=== PATIENT | male | born 1930 | race Caucasian/White ===

== ENCOUNTER → 2016-04-17 | Outpatient (CLI) | payer OTHER ==
[~2016-04-17] MED LIST: ASPI81TA28 PO; ATOR-26 PO; CHOL100010 PO; CLOP1TAB5 PO; FERR1TAB24 PO; INSDGIPEN SC; IRON TAB PO; LISI-729 PO; MULT-506 PO; NTRGSL/4 SL; OXYC-57 PO
--- NOTE | 2016-04-17 12:37 | DIAGNOSTIC IMAGING REPORT ---
ADDENDUM Addendum for Fluoro Time: FLUORO TIME: 0.4 minute Electronically signed by: Barry Drew M.D. 04/30/2016 11:28 AM Dictated Date/Time: 04/18/2016 9:17 AM ORIGINAL REPORT Study: Cholangiogram HISTORY: Acute cholecystitis FINDINGS: Patient has drainage/cholecystostomy catheter. This injected in retrograde fashion. There is filling of the gallbladder lumen. There is an extensive amount of debris and/or sludge within the gallbladder lumen. Cystic duct is seen in part. The common duct is not seen definitively on these images. Patient began to complain of discomfort and retrograde flow of contrast around the catheter and neck seen at the skin surface. At this point study was terminated. IMPRESSION: 1. Retrograde opacification of the gallbladder which contains multiple filling defects with moderate wall irregularity 2. No evidence for extravasation. 3. Partial filling of the cystic duct with potential flash filling of the mid common duct. 4. At this point, retrograde flow of contrast seen around the tube and at the patient's skin surface. Due to patient discomfort, further attempts at opacification of the common duct were not performed Electronically signed by: Barry Drew M.D. 04/17/2016 12:34 PM
== END | disposition home or self-care (01) ==
LOC: C.RAD 10:35
PROVIDERS: ATTEND Surgery
DX: K81.0 Acute cholecystitis (principal)

== ENCOUNTER 2016-04-21 09:18 | Observation (INO) | payer OTHER ==
[2016-04-17 12:04] LABS: BASO % 0.4 %; BASO ABS # 0.02 K/uL (0-0.2); COMPLETE YES; EOS % 2.6 %; HEMATOCRIT 35.6 % (42-52); IG% 0.2 %; LYMPH % 21.8 %; LYMPH ABS # 1.19 K/uL (1.2-3.4); MEAN CELL VOLUME 100.3 fL (80-100); MEAN CORPUSCULAR HEMOGLOBIN 32.1 pg (25-34); MEAN PLATELET VOLUME 9.9 fL (7.4-10.4); MONO % 6.2 %; NEUT % 68.8 %; PLATELET COUNT 166 K/uL (130-400); RED BLOOD COUNT 3.55 M/uL (4.7-6.1); WHITE BLOOD COUNT 5.45 K/uL (4.8-10.8)
[2016-04-17 12:22] LABS: PROTHROMBIN TIME (PATIENT) 10.6 SECONDS (9.0-12.0)
[2016-04-17 12:43] LABS: ALT/SGPT 16 U/L (12-78); AST/SGOT 22 U/L (15-37); BLOOD UREA NITROGEN 14 mg/dl (7-18); BUN/CREATININE RATIO 14.5 (10-20); CARBON DIOXIDE 26 mmol/L (21-32); CHLORIDE 102 mmol/L (98-107); CREATININE 0.94 mg/dl (0.60-1.40); GLUCOSE 178 mg/dl (70-99); SODIUM 138 mmol/L (136-145)
[2016-04-17 12:46] LABS: ALB/GLOB RATIO 0.9 (0.9-2); ALKALINE PHOSPHATASE 113 U/L (45-117)
[2016-04-17 16:19] VITALS: BMI 29.0
[~2016-04-21] VITALS: Ht 167.6 cm; Wt 80.7 kg
[2016-04-21] VITALS (26 sets, daily range): BP systolic 134–180; BP diastolic 58–89; PULSE 69–110; TEMP 36.5–36.8; O2SAT 95–100; Ht 167.6 cm; Wt 80.7 kg
[~2016-04-21 09:18] MED LIST changes: +CEFAZOLIN 2000 MG/60 ML D5W IV SCH; -FERR1TAB24 PO; +HEPARIN SOD 5000 UNIT/0.5 ML CARP SQ SCH; +LACTATED RINGER'S 1000ML 1,000 ML IV SCH; -OXYC-57 PO
[2016-04-21] MEDS ORDERED: MIDAZOLAM HCL 1 MG/ML 2ML VIAL ONE (09:47)
[2016-04-21] MEDS ORDERED: ROCURONIUM BROMIDE 10 MG/ML 5 ML VIAL ONE (09:47)
[2016-04-21] MEDS ORDERED: PROPOFOL IV EMULSION 10 MG/ML 20 ML VIAL IV ONE (09:47)
[2016-04-21] MEDS ORDERED: FENTANYL CITRATE INJ 50 MCG/1 ML 2 ML VIAL ONE ×3 (09:47→13:09)
[2016-04-21] MEDS ORDERED: LIDOCAINE HCL 2% 2 ML VIAL (20MG/ML) ONE (09:47)
--- NOTE | 2016-04-21 10:40 | History & Physical Bridge Note ---
H&P Re-Evaluation Bridge Note: I have examined the patient, reviewed the History & Physical and in the interval since the performance of the History & Physical I have noted the following changes of clinical significance: No changes noted
[2016-04-21] MEDS ORDERED: EpHEDrine SULFATE 50MG/5ML SYR ONE (11:25)
[2016-04-21] MEDS ORDERED: GLYCOPYRROLATE INJ 0.2 MG/ML VIAL ONE (11:25)
[2016-04-21] MEDS ORDERED: SURGICEL ABSORB HEMOSTAT 2IN X 14IN TOP ONE (12:32)
[2016-04-21] MEDS ORDERED: BUPIVACAINE/EPINEPHRINE 0.5% MPF 1:200,000 30 ML VIAL INJ ONE (12:40)
[2016-04-21] MEDS ORDERED: DEXTROSE 50% 50 ML SYR IV PRN (13:00)
[2016-04-21] MEDS ORDERED: GLUCAGON FOR INJ 1 MG VIAL SQ PRN (13:00)
[2016-04-21] MEDS ORDERED: ATROPINE SULFATE 0.1 MG/ML 5ML SYR IV PRN (13:00)
[2016-04-21] MEDS ORDERED: GLUCOSE 40% GEL 15 GM TUBE PO PRN (13:00)
[2016-04-21] MEDS ORDERED: LABETALOL HCL IV 5 MG/ML 20ML IV PRN (13:00)
[2016-04-21] MEDS ORDERED: NALOXONE HCL 0.4 MG/1 ML VIAL/CARP IV PRN (13:00)
[2016-04-21] MEDS ORDERED: FENTANYL CITRATE INJ 50 MCG/1 ML 2 ML VIAL IV PRN (13:00)
[2016-04-21] MEDS ORDERED: NITROGLYCERIN 0.4 MG SL PER TAB CHARGE SL PRN (13:00)
[2016-04-21] MEDS ORDERED: EpHEDrine SULFATE INJ 50 MG/ML AMP IV PRN (13:00)
[2016-04-21] MEDS ORDERED: ONDANSETRON INJ 2 MG/ML 2 ML VIAL IV PRN ×2 (13:00)
[2016-04-21] MEDS ORDERED: FLUMAZENIL 0.1 MG/1 ML 10 ML VIAL IV PRN (13:00)
[2016-04-21] MEDS ORDERED: GLUCOSE 10 TABS/TUBE PO PRN (13:00)
--- NOTE | 2016-04-21 13:04 | [facility] Operative Report ---
Operative Report Operative Date Apr 21, 2016. Pre-Operative Diagnosis Acute choleccystitis, percutaneous cholecystostomy tube Post-Operative Diagnosis same Procedure(s) Performed lap thi with removal of perc thi tube Surgeon Dr. Sung Mo Filer And Sander Surgeon(s) Omar Krueger PA-C Estimated Blood Loss 100ML Findings gallbladder with chronic inflammation and stones Specimens A. Gallbladder Anesthesia GET Complication(s) None Disposition Recovery Room / PACU I attest to the content of the Intraoperative Record and any orders documented therein. Any exceptions are noted below.
[2016-04-21] MEDS ORDERED: ONDANSETRON INJ 2 MG/ML 2 ML VIAL ONE (13:38)
--- NOTE | 2016-04-21 13:42 | OPERATIVE REPORT ---
DATE OF OPERATION: 04/21/2016 PREOPERATIVE DIAGNOSES: Chronic cholecystitis, cholelithiasis and history of recent cholecystostomy tube by [facility]. POSTOPERATIVE DIAGNOSES: Same. PROCEDURE: Laparoscopic cholecystectomy with removal of cholecystostomy tube. SURGEON: Dr. Mo. BIG DATA HADOOP DEVELOPER: Omar Krueger PA-C. ESTIMATED BLOOD LOSS: Approximately 100 mL. COMPLICATIONS: No immediate complications. ANESTHESIA: The patient tolerated the procedure well. DESCRIPTION OF PROCEDURE: After informed consent was obtained, the patient was taken to the operating suite, placed in supine position. After successful intubation, the abdomen was sterilely prepped and draped in usual fashion. A periumbilical incision 11 blade scalpel and carried down through the soft tissue using electrocautery. Anterior rectus fascia was opened using electrocautery and two #0 Vicryl stay sutures were placed. Peritoneum was entered using blunt finger penetration and a finger sweep was performed to takedown adhesions. A 12 mm Mehrdad trocar was placed and the abdomen was insufflated 18 mmHg. Laparoscope was inserted and the abdomen examined 360 degrees. A subxiphoid 5 mm port which would later be to 12 mm port was placed and then 2 right mid abdominal 5 mm ports. The patient was placed in reverse Trendelenburg position slightly airplaned to the left. The gallbladder was a thickened and contracted. There were palpable stones within it. We were able to grasp it and elevate it superiorly and laterally. At the neck of the gallbladder itself, there was a lot of inflammation. We were able to slowly tease this down using scissor lysis small amounts of electrocautery and primarily blunt dissection. After a fair amount of dissection, I was able to delineate the cystic node which I was able to dissect superiorly. We were then able to get on the medial side of the cystic duct. There was a large thick band of tissue with chronic inflammation anterior to the cystic duct. Originally I thought this might be the cystic duct and we skeletonized it and use a CLIFFORD gleason cartridge to transect it. Once we did this though right behind it was clearly the cystic duct. We slowly and tediously dissected it free from surrounding tissues. Again, because of the thick nature of the tissue, I decided to go ahead and used the CLIFFORD stapler for this as well. We stapled off the cystic duct. The cystic artery was posterior. We clipped it twice proximally and once distally and transected it. We were then able to remove the gallbladder from the gallbladder fossa. The cholecystostomy tube had been placed transhepatically. When we encountered it we pulled it out of the gallbladder. I cut the pigtail portion off and removed it from one of the ports. We would remove the remainder of the catheter at the end of the case. We took the gallbladder down. Initially during dissection, we made a small hole in the neck of the gallbladder which released small gallstones as well as small amount of bile. We suctioned all these out at the end of the case as well. After removing, the gallbladder was placed into an EndoCatch bag and removed it from the abdominal cavity. We then performed thorough irrigation and suctioned out the small stones that remainder. Several small bleeding points in the gallbladder fossa were controlled using electrocautery. Because of the patient being running high platelets and the chronic inflammation, I did put a piece of Surgicel in the gallbladder fossa. At the end of the procedure, there was adequate hemostasis and no evidence of any bile leak. Final irrigation was performed. A #10 flat Johnny-Castillo drain was also placed in the right upper quadrant and brought out through one of the port sites. Quick look around the abdomen showed no other gross abnormalities. The trocars were all removed and the abdomen was desufflated. The fascia of the camera port was closed using 0 Vicryl in a [id number] fashion. All the wounds were irrigated and closed using 4-0 Monocryl. Marcaine was injected around them for postoperative analgesia. Skin glue used as dressing. The patient was awakened, extubated, and transferred to recovery in stable condition. I attest to the content of the Intraoperative Record and any orders documented therein. Any exceptio ns are noted below.
[2016-04-21] MEDS ORDERED: PROMETHAZINE HCL INJ 12.5 MG in SODIUM CHLORIDE 0.9% 50ML 50 ML IV PRN (13:45)
[2016-04-21] MEDS ORDERED: HYDROmorphone INJ 1 MG/ML SYR ONE (13:45)
[2016-04-21] MEDS ORDERED: NURSING VERBAL MED ORDER ONE ×2 (14:00→22:45)
--- NOTE | 2016-04-21 14:25 | Anesthesiology Progress Note ---
Anesthesia Post Op Note Date & Time Apr 21, 2016 at 14:24 Vital Signs Pain Intensity: 4 Vital Signs Past 12 Hours Date Time Temp Pulse Resp B/P Pulse Ox O2 Delivery O2 Flow Rate FiO2 04/21/16 14:10 72 20 140/64 97 Nasal Cannula 2 04/21/16 14:00 67 20 144/59 97 Nasal Cannula 2 04/21/16 13:50 71 18 143/97 97 Nasal Cannula 2 04/21/16 13:40 69 18 137/58 100 Nasal Cannula 2 04/21/16 13:30 69 18 149/55 100 Mask 10 04/21/16 13:20 70 18 164/74 100 Mask 10 04/21/16 13:10 65 18 152/79 100 Mask 10 04/21/16 13:00 77 20 139/51 100 Mask 10 04/21/16 12:57 36.1 77 18 153/63 100 Mask 10 Notes Mental Status: alert / awake / arousable, participated in evaluation Pt Amnestic to Procedure: Yes Nausea / Vomiting: adequately controlled Pain: adequately controlled Airway Patency, RR, SpO2: stable & adequate BP & HR: stable & adequate Hydration State: stable & adequate Anesthetic Complications: no major complications apparent
[2016-04-21] MEDS: OXYCODONE/ACETAMINOPHEN 5-325 TAB PO PRN ×2 (15:07→19:55)
[2016-04-21] MEDS ORDERED: IV FLUIDS COMPLETED PRN (15:15)
[2016-04-21] MEDS: LACTATED RINGER'S 1000ML 1,000 ML IV SCH (16:15)
[2016-04-21] MEDS: INSULIN ASPART 100 UNITS/ML 3 ML PEN SC SCH ×2 (16:16→20:32)
--- NOTE | 2016-04-21 17:13 | CARDIOLOGY PROGRESS NOTE ---
DATE: 04/21/2016 HISTORY OF PRESENT ILLNESS: Mr. Madrid is a very pleasant 85-year-old white male with a history of hypertension, dyslipidemia, type 2 diabetes mellitus, right carotid bruit, prostate cancer, left carotid bruit, cholecystitis, and CAD status post inferior STEMI on 08/04/2015, status post 2 drug-eluting stents in the mid and proximal RCA, who underwent a laparoscopic cholecystectomy earlier today with Dr. Sung Mo. At the present time, the patient is being seen in room 202 and is somewhat somnolent, he arouses to verbal stimuli and he answers questions appropriately. The patient offers no complaints. He does admit that he is "sore" in his abdomen. He denies any chest pain, angina, dyspnea, palpitations, lightheadedness, dizziness, or weakness. The patient denies any limiting cardiopulmonary symptoms leading up to his surgery. He was seen by Dr. Payton for preoperative cardiac evaluation. Please note that he had his inferior STEMI in July 2015 and only completed 8 months of dual antiplatelet therapy. His Plavix was held for 5 days leading up to surgery, and should be restarted at the earliest possible interval as hemostasis allows. MEDICATIONS: 1. Aspirin 81 mg a day. 2. Lisinopril 5 mg daily. 3. NovoLog sliding-scale insulin. 4. Zofran 4 mg IV q. 6 hours p.r.n. 5. Percocet 5/325 one tablet every 4 hours as needed. 6. Morphine sulfate as needed. 7. Sublingual nitroglycerin p.r.n. 8. Lactated Ringer's at 80 mL per hour. ALLERGIES: 1. NKDA. 2. INTOLERANT TO Beta-blockers DUE TO BRADYCARDIA. PHYSICAL EXAMINATION: VITAL SIGNS: Temperature is 36.6 degrees Celsius, pulse 70 and regular, respiratory rate is 18 and unlabored, blood pressure is 147/67, SpO2 is 96% on 2 liters of oxygen via nasal cannula. GENERAL: The patient is in no acute distress. HEENT: Head is atraumatic, normocephalic. EOMs intact. Sclerae are anicteric. Face is symmetric. No perioral cyanosis. Mucous membranes moist. NECK: Without thyromegaly, adenopathy or JVD. Carotid upstrokes are +2 bilaterally with a left carotid bruit noted. CHEST AND LUNGS: Clear to auscultation throughout all lung stubbs, no wheezes, rales or rhonchi. CARDIOVASCULAR: S1 and S2 are regular without murmur, gallop or rub. PMI is not displaced. No lifts, heaves, or thrills. ABDOMINAL EXAM: Bowel sounds present. EXTREMITIES: Without clubbing, cyanosis or edema. Intact radial pulses and posterior tibial pulses bilaterally. NEUROLOGIC: The patient is somnolent, but arouses to verbal stimuli. Answers questions appropriately. No focal neurologic deficits noted. Cardiac catheterization on 08/04/2015 revealed the followin. LMCA luminal irregularities only. 2. LAD 70% mid vessel stenosis. 3. D1 and D2 -- mild diffuse disease. 4. LCX -- 30% proximal stenosis, otherwise mild diffuse disease. 5. OM1 small vessel. 6. OM2 20% mid vessel stenosis. 7. RCA -- dominant vessel. 100% midvessel occlusion, 50% distal vessel occlusion. PCI included: 1. Resolute 2.5 x 14 mm drug-eluting stent deployed in the mid RCA. 2. Resolute 2.75 x 12 mm drug-eluting stent deployed in the proximal RCA. ASSESSMENT: 1. Status post laparoscopic cholecystectomy. 2. CAD, status post inferior ST elevation myocardial infarction on 08/04/2015 with deployment of 2 drug-eluting stents in the mid and proximal right coronary artery. 3. Borderline occlusive mid LAD stenosis (70%) 4. Hypertension. 5. Dyslipidemia. 6. Type 2 diabetes mellitus. 7. History of left carotid bruit. 8. No angina pectoris or anginal equivalent symptoms. 9. No signs or symptoms of heart failure. 10. No symptoms suggestive of dysrhythmia. PLAN: 1. The patient is hemodynamically stable following his laparoscopic cholecystectomy earlier today. 2. Agree with telemetry for the next 24 hours. 3. Continue aspirin 81 mg daily indefinitely. 4. Resume Plavix 75 mg daily at the earliest interval, as hemostasis allows. 5. Continue Lisinopril at current dose. Hold parameters based on systolic blood pressure. 6. Continue Atorvastatin 80 mg at bedtime. 7. Continue sliding-scale insulin coverage for blood sugars. 8. Continue Lantus. 9. Avoid beta-blockers due to previous bradycardia. 10. Monitor daily H&H, PRP. 11. We will continue to follow along while hospitalized and as an outpatient. MTDD
[2016-04-21] MEDS: MoRPHine SULFATE 4 MG/ML 1 ML CARP\\VIAL IV PRN ×2 (19:08→21:52)
[2016-04-21] MEDS: ATORVASTATIN 40 MG TAB PO SCH (20:30)
[2016-04-21] MEDS ORDERED: HYDROmorphone INJ 1 MG/ML SYR IV PRN (23:00)
[2016-04-21] MEDS: HYDROmorphone INJ 1 MG/ML SYR IV PRN (23:07)
[2016-04-22] VITALS (9 sets, daily range): BP systolic 129–164; BP diastolic 69–79; PULSE 74–97; TEMP 36.4–36.9; O2SAT 89–98
[2016-04-22] MEDS: OXYCODONE/ACETAMINOPHEN 5-325 TAB PO PRN ×2 (01:20→10:56)
[2016-04-22] MEDS: LACTATED RINGER'S 1000ML 1,000 ML IV SCH (01:23)
[2016-04-22] MEDS: HYDROmorphone INJ 1 MG/ML SYR IV PRN (04:42)
[2016-04-22] MEDS: INSULIN ASPART 100 UNITS/ML 3 ML PEN SC SCH ×4 (07:00→21:08)
[2016-04-22 07:24] LABS: BASO % 0.1 %; BASO ABS # 0.01 K/uL (0-0.2); COMPLETE YES; HEMATOCRIT 28.7 % (42-52); IG% 0.3 %; LYMPH % 6.1 %; LYMPH ABS # 0.61 K/uL (1.2-3.4); MEAN CORPUSCULAR HEMOGLOBIN 31.8 pg (25-34); MEAN CORPUSCULAR HGB CONC 32.8 g/dl (32-36); MEAN PLATELET VOLUME 9.4 fL (7.4-10.4); MONO % 6.7 %; NEUT % 86.8 %; PLATELET COUNT 156 K/uL (130-400); RED BLOOD COUNT 2.96 M/uL (4.7-6.1); WHITE BLOOD COUNT 9.95 K/uL (4.8-10.8)
[2016-04-22] MEDS: ASPIRIN 81 MG ECTAB PO SCH (07:33)
[2016-04-22] MEDS: LISINOPRIL 5 MG TAB PO SCH (07:33)
[2016-04-22 07:52] LABS: CALCIUM 8.4 mg/dl (8.5-10.1); CREATININE 0.87 mg/dl (0.60-1.40); POTASSIUM 4.5 mmol/L (3.5-5.1)
--- NOTE | 2016-04-22 09:12 | CARDIOLOGY PROGRESS NOTE ---
DATE: 04/22/2016 HISTORY OF PRESENT ILLNESS: Mr. Madrid is now postoperative day #1 from a laparoscopic cholecystectomy. He continues to have abdominal soreness, but is asymptomatic from a cardiac standpoint. He denies any chest pain, heaviness, tightness, pressure or angina pectoris. Denies any neck, jaw, back, or arm pain. No shortness of breath, dyspnea on exertion, orthopnea or PND. He further denies any palpitations, syncope, or near syncope. The patient has developed a mild postoperative anemia, but is asymptomatic with it. PHYSICAL EXAMINATION: VITAL SIGNS: Temperature is 36.6 degrees Celsius, pulse 78 and regular, respiratory rate 16 and unlabored, blood pressure is 130/72, SPO2 is 98% on 3 liters of oxygen via nasal cannula. GENERAL: The patient is in no acute distress. HEENT: Head is atraumatic, normocephalic. EOMs intact. Sclerae are anicteric. Facies symmetric. NECK: Without thyromegaly, adenopathy or JVD. CHEST AND LUNGS: With mildly diminished breath sounds, otherwise clear. CARDIOVASCULAR: S1 and S2 are regular without murmur, gallop or rub. ABDOMEN: Bowel sounds are present. EXTREMITIES: No clubbing, cyanosis or edema. Intact radial and posterior tibial arteries bilaterally. NEUROLOGIC: The patient is awake, alert and oriented. Pleasant and cooperative. Answers questions appropriately. Speech is clear. Follows commands. LABORATORIES: White blood count 9.95. Hemoglobin 9.4 g/dl, hematocrit 28.7%, platelet count is 156,000. Sodium is 136 mmol/L, potassium 4.5 mmol/L. BUN is 17 mg/dL. Creatinine 0.87 mg/dL. Random glucose 143 mg/dL. ASSESSMENT: 1. Postoperative day #1 laparoscopic cholecystectomy. 2. Coronary artery disease status post 2 drug-eluting stents in the mid and proximal right coronary artery 08/04/2015. 3. 70% mid left anterior descending stenosis. 4. Hypertension. 5. Dyslipidemia. 6. Type 2 diabetes mellitus. 7. Left carotid bruit. 8. No angina pectoris or anginal equivalent symptoms. 9. No signs or symptoms of heart failure. PLAN: 1. The patient remains stable from a cardiac standpoint. 2. Continue lisinopril at current dose. 3. Continue aspirin 81 mg daily. 4. Resume Plavix 75 mg this am if okay with Dr. Mo. 5. Continue director long term care atorvastatin 80 mg at bedtime. 6. Continue to monitor laboratories. 7. The patient is stable for transfer to medical/surgical floor. MTDD
--- NOTE | 2016-04-22 09:41 | Anesthesiology Progress Note ---
Anesthesia Post Op Note Date & Time Apr 22, 2016 at 09:39 Vital Signs Pain Intensity: 1.0 Vital Signs Past 12 Hours Date Time Temp Pulse Resp B/P Pulse Ox O2 Delivery O2 Flow Rate FiO2 04/22/16 08:00 98 Nasal Cannula 3.0 04/22/16 04:00 98 Nasal Cannula 3.0 04/22/16 04:00 36.6 78 18 131/73 98 Room Air 04/22/16 00:00 98 Nasal Cannula 3.0 04/22/16 00:00 36.4 97 19 164/79 96 Room Air Notes Mental Status: alert / awake / arousable, participated in evaluation Pt Amnestic to Procedure: Yes Nausea / Vomiting: adequately controlled Pain: adequately controlled Airway Patency, RR, SpO2: stable & adequate BP & HR: stable & adequate Hydration State: stable & adequate Anesthetic Complications: no major complications apparent
--- NOTE | 2016-04-22 11:32 | Surgery Progress Note ---
Surgery Progress Note Date of Service Apr 22, 2016. Subjective Post OP Day: 1 + diet (clears), No complaints, No nausea Objective Vital Signs: Date Time Temp Pulse Resp B/P Pulse Ox O2 Delivery O2 Flow Rate FiO2 04/22/16 08:00 98 Nasal Cannula 3.0 04/22/16 04:00 98 Nasal Cannula 3.0 04/22/16 04:00 36.6 78 18 131/73 98 Room Air 04/22/16 00:00 98 Nasal Cannula 3.0 04/22/16 00:00 36.4 97 19 164/79 96 Room Air 04/21/16 21:00 105 25 148/68 96 Nasal Cannula 2.0 04/21/16 20:30 106 150/71 100 Nasal Cannula 2.0 04/21/16 20:00 98 Nasal Cannula 2.0 04/21/16 20:00 110 19 180/89 99 Nasal Cannula 2.0 04/21/16 19:00 36.8 85 32 162/71 98 Nasal Cannula 2.0 04/21/16 18:58 27 155/77 97 04/21/16 18:30 24 95 04/21/16 18:00 25 97 04/21/16 17:58 27 151/66 98 04/21/16 17:30 27 97 04/21/16 17:00 28 98 04/21/16 17:00 36.6 69 24 139/67 98 Nasal Cannula 2.0 04/21/16 16:00 Nasal Cannula 2.0 04/21/16 15:46 36.5 84 20 137/71 96 2.0 04/21/16 14:37 36.6 72 147/67 96 Nasal Cannula 2.0 04/21/16 14:29 36.6 72 28 147/67 96 Nasal Cannula 2.0 04/21/16 14:28 69 18 138/62 96 04/21/16 14:10 72 20 140/64 97 Nasal Cannula 2 04/21/16 14:00 67 20 144/59 97 Nasal Cannula 2 04/21/16 13:50 71 18 143/97 97 Nasal Cannula 2 04/21/16 13:40 69 18 137/58 100 Nasal Cannula 2 04/21/16 13:30 69 18 149/55 100 Mask 10 04/21/16 13:20 70 18 164/74 100 Mask 10 04/21/16 13:10 65 18 152/79 100 Mask 10 04/21/16 13:00 77 20 139/51 100 Mask 10 04/21/16 12:57 36.1 77 18 153/63 100 Mask 10 Physical Exam: MAGDALENO drainage (120 serosang) Abdomen: soft Incision(s): clean, dry Laboratory Results: Results Past 24 Hours Test 04/21/16 13:20 04/21/16 16:07 04/21/16 20:19 04/22/16 06:47 Range/Units Bedside Glucose 172 199 150 138 70-99 mg/dl Test 04/22/16 07:07 04/22/16 11:10 Range/Units White Blood Count 9.95 4.8-10.8 K/uL Red Blood Count 2.96 4.7-6.1 M/uL Hemoglobin 9.4 14.0-18.0 g/dL Hematocrit 28.7 42-52 % Mean Corpuscular Volume 97.0 80-100 fL Mean Corpuscular Hemoglobin 31.8 25-34 pg Mean Corpuscular Hemoglobin Concent 32.8 32-36 g/dl Platelet Count 156 130-400 K/uL Mean Platelet Volume 9.4 7.4-10.4 fL Neutrophils (%) (Auto) 86.8 % Lymphocytes (%) (Auto) 6.1 % Monocytes (%) (Auto) 6.7 % Eosinophils (%) (Auto) 0.0 % Basophils (%) (Auto) 0.1 % Neutrophils # (Auto) 8.63 1.4-6.5 K/uL Lymphocytes # (Auto) 0.61 1.2-3.4 K/uL Monocytes # (Auto) 0.67 0.11-0.59 K/uL Eosinophils # (Auto) 0.00 0-0.5 K/uL Basophils # (Auto) 0.01 0-0.2 K/uL RDW Standard Deviation 56.1 36.4-46.3 fL RDW Coefficient of Variation 15.9 11.5-14.5 % Immature Granulocyte % (Auto) 0.3 % Immature Granulocyte # (Auto) 0.03 0.00-0.02 K/uL Sodium Level 136 136-145 mmol/L Potassium Level 4.5 3.5-5.1 mmol/L Chloride Level 101 98-107 mmol/L Carbon Dioxide Level 24 21-32 mmol/L Anion Gap 11.0 3-11 mmol/L Blood Urea Nitrogen 17 7-18 mg/dl Creatinine 0.87 0.60-1.40 mg/dl Est Creatinine Clear Calc Drug Dose 64.2 ml/min Estimated GFR () 92.5 Estimated GFR (Non- 79.8 BUN/Creatinine Ratio 19.0 10-20 Random Glucose 143 70-99 mg/dl Calcium Level 8.4 8.5-10.1 mg/dl Total Bilirubin 1.6 0.2-1 mg/dl Direct Bilirubin 0.5 0-0.2 mg/dl Aspartate Amino Transf (AST/SGOT) 38 15-37 U/L Alanine Aminotransferase (ALT/SGPT) 18 12-78 U/L Alkaline Phosphatase 80 45-117 U/L Total Protein 6.3 6.4-8.2 gm/dl Albumin 2.6 3.4-5.0 gm/dl Bedside Glucose 132 70-99 mg/dl Assessment & Plan s/ap lap thi CAD stable post op will transfer to floor, increase activity advance diet as elif, will stop IVF Plavix restarted as above. doing ok pain control ok elif liquids. does not want more slight bump in LFT's...will recheck tomorrow. keep MAGDALENO for now some urinary incontinence. will give 2 days of flomax 0.4 mg
[2016-04-22] MEDS ORDERED: NURSING VERBAL MED ORDER ONE (12:15)
[2016-04-22] MEDS ORDERED: TAMSULOSIN HCL 0.4 MG CAP PO ONE (12:19)
[2016-04-22] MEDS: CLOPIDOGREL BISULFATE 75 MG TAB PO SCH (12:37)
[2016-04-22] MEDS: ATORVASTATIN 40 MG TAB PO SCH (21:06)
[2016-04-23 00:15] VITALS: O2SAT 88
[2016-04-23 07:26] VITALS: BP 126/67; PULSE 92; TEMP 36.5; O2SAT 94
[2016-04-23 08:05] LABS: MEAN CELL VOLUME 97.9 fL (80-100); MEAN CORPUSCULAR HEMOGLOBIN 31.8 pg (25-34); MEAN CORPUSCULAR HGB CONC 32.5 g/dl (32-36); MEAN PLATELET VOLUME 8.9 fL (7.4-10.4); PLATELET COUNT 176 K/uL (130-400); RED BLOOD COUNT 2.86 M/uL (4.7-6.1); WHITE BLOOD COUNT 6.45 K/uL (4.8-10.8)
[2016-04-23] MEDS: OXYCODONE/ACETAMINOPHEN 5-325 TAB PO PRN ×2 (08:09→16:10)
[2016-04-23] MEDS: CLOPIDOGREL BISULFATE 75 MG TAB PO SCH (08:10)
[2016-04-23] MEDS: ASPIRIN 81 MG ECTAB PO SCH (08:10)
[2016-04-23] MEDS: LISINOPRIL 5 MG TAB PO SCH (08:11)
[2016-04-23] MEDS: TAMSULOSIN HCL 0.4 MG CAP PO SCH (08:11)
--- NOTE | 2016-04-23 08:59 | Surgery Progress Note ---
Surgery Progress Note Date of Service Apr 23, 2016. Subjective Post OP Day: 2 not feeling well. having pain but not asking for pain meds. elif liquid diet but has not tried solids yet Objective Vital Signs: Date Time Temp Pulse Resp B/P Pulse Ox O2 Delivery O2 Flow Rate FiO2 04/23/16 07:26 36.5 92 18 126/67 94 Room Air 04/23/16 00:15 88 Nasal Cannula 2.0 04/22/16 23:10 93 Nasal Cannula 2.0 04/22/16 22:58 36.9 92 16 129/77 89 04/22/16 19:25 Room Air 04/22/16 15:07 36.6 95 16 154/75 92 Room Air 04/22/16 13:15 36.7 74 18 152/69 94 Room Air 04/22/16 13:15 Room Air 04/22/16 12:47 36.6 81 18 94 04/22/16 12:00 94 Room Air 04/22/16 11:40 36.6 81 18 144/71 96 Physical Exam: MAGDALENO drainage (serous/no bile) General Appearance: no apparent distress Head: normocephalic, + evidence of trama Neck: supple Abdomen: soft Incision(s): clean, dry, intact Extremities: non-tender Laboratory Results: Results Past 24 Hours Test 04/22/16 11:10 04/22/16 16:54 04/22/16 20:49 04/23/16 07:45 Range/Units Bedside Glucose 132 135 154 70-99 mg/dl White Blood Count 6.45 4.8-10.8 K/uL Red Blood Count 2.86 4.7-6.1 M/uL Hemoglobin 9.1 14.0-18.0 g/dL Hematocrit 28.0 42-52 % Mean Corpuscular Volume 97.9 80-100 fL Mean Corpuscular Hemoglobin 31.8 25-34 pg Mean Corpuscular Hemoglobin Concent 32.5 32-36 g/dl RDW Standard Deviation 57.0 36.4-46.3 fL RDW Coefficient of Variation 15.9 11.5-14.5 % Platelet Count 176 130-400 K/uL Mean Platelet Volume 8.9 7.4-10.4 fL Total Bilirubin 2.0 0.2-1 mg/dl Direct Bilirubin 0.6 0-0.2 mg/dl Aspartate Amino Transf (AST/SGOT) 31 15-37 U/L Alanine Aminotransferase (ALT/SGPT) 15 12-78 U/L Alkaline Phosphatase 89 45-117 U/L Total Protein 6.6 6.4-8.2 gm/dl Albumin 2.7 3.4-5.0 gm/dl Test 04/23/16 08:18 Range/Units Bedside Glucose 146 70-99 mg/dl Assessment & Plan 04/23/16 still not feeling great increase activity/PT/OT increase diet LFT's pending not ready for d/c yet 04/22/16 s/ap lap thi CAD stable post op will transfer to floor, increase activity advance diet as elif, will stop IVF Plavix restarted as above. doing ok pain control ok elif liquids. does not want more slight bump in LFT's...will recheck tomorrow. keep MAGDALENO for now some urinary incontinence. will give 2 days of flomax 0.4 mg s/ap lap thi CAD stable post op will transfer to floor, increase activity advance diet as elif, will stop IVF Plavix restarted as above. doing ok pain control ok elif liquids. does not want more slight bump in LFT's...will recheck tomorrow. keep MAGDALENO for now some urinary incontinence. will give 2 days of flomax 0.4 mg
[2016-04-23] MEDS: INSULIN ASPART 100 UNITS/ML 3 ML PEN SC SCH ×4 (09:33→20:52)
--- NOTE | 2016-04-23 13:01 | CARDIOLOGY PROGRESS NOTE ---
DATE: 04/23/2016 SUBJECTIVE: Mr. Madrid is resting comfortably in the bedside chair without complaints of chest pain or dyspnea. OBJECTIVE: VITAL SIGNS: Blood pressure 126/67 with a regular pulse of 90. Respiratory rate is 18. The patient is afebrile at 36.5 degrees Celsius. Saturation 94% on room air. NECK: Supple with full carotid upstrokes. There are no obvious bruits. Jugular venous pressure is flat at 90 degrees. There is no thyromegaly. CARDIOVASCULAR: Reveals a regular rhythm with normal S1 and S2. No obvious murmurs. No S3. LUNGS: Clear without rales, rhonchi, or wheezes. ABDOMEN: Soft with positive bowel sounds. EXTREMITIES: Show intact radial artery pulses bilaterally. There is no peripheral edema. DATA: CBC notes hemoglobin of 9.1, hematocrit 28.0, white count 6.4, platelet count 176,000. IMPRESSION AND PLAN: 1. Status post laparoscopic cholecystectomy -- per our surgical team. 2. Coronary artery disease -- status post 2 drug-eluting stents in the mid and proximal right coronary artery in July 2015. Also has a history of 70% mid left anterior descending stenosis. Plavix restarted yesterday. No bleeding issues at this time. 3. Hypertension -- controlled. 4. Hypercholesterolemia -- continue statin. 5. Diabetes mellitus.
[2016-04-23 15:19] VITALS: BP 119/68; PULSE 78; TEMP 36.6; O2SAT 93
[2016-04-23 16:30] VITALS: O2SAT 93
[2016-04-23] MEDS: ATORVASTATIN 40 MG TAB PO SCH (20:55)
[2016-04-23 22:58] VITALS: BP 131/72; PULSE 76; TEMP 36.8; O2SAT 95
[2016-04-24] MEDS: OXYCODONE/ACETAMINOPHEN 5-325 TAB PO PRN (00:24)
[2016-04-24 07:58] VITALS: BP 151/79; PULSE 74; TEMP 36.8; O2SAT 95
[2016-04-24] MEDS: ASPIRIN 81 MG ECTAB PO SCH (09:09)
[2016-04-24] MEDS: INSULIN ASPART 100 UNITS/ML 3 ML PEN SC SCH ×2 (09:09→12:22)
[2016-04-24] MEDS: CLOPIDOGREL BISULFATE 75 MG TAB PO SCH (09:09)
[2016-04-24] MEDS: LISINOPRIL 5 MG TAB PO SCH (09:10)
[2016-04-24] MEDS: TAMSULOSIN HCL 0.4 MG CAP PO SCH (09:10)
[2016-04-24] MEDS ORDERED: OXYC-57 PO (10:06)
--- NOTE | 2016-04-24 10:08 | Discharge Instructions ---
Discharge Instructions Admission Reason for Admission: Acute Cholecystitis Discharge Discharge Diagnosis / Problem: Laparoscopic cholecystectomy Discharge Goals Goal(s): Decrease discomfort Activity Recommendations Activity Limitations: per Instructions/Follow-up section Lifting Limitations: no more than 10 pounds Shower/Bathe: no limitations . Instructions / Follow-Up Instructions / Follow-Up Dr. Mo office in 1-2 weeks, call [phone] if you do not already have an appt Current Hospital Diet Patient's current hospital diet: Diabetes Type 2 Diet Discharge Diet Recommended Diet: Diabetes Type 2 Diet Procedures Procedures Performed: Laparoscopic Cholecystectomy Pending Studies Studies pending at discharge: no Laboratory Results Hemoglobin A1c Test 03/08/16 06:10 Range/Units Estimated Average Glucose 123 mg/dl Hemoglobin A1c 5.9 H 4.5-5.6 % Medical Emergencies . Who to Call and When: Medical Emergencies: If at any time you feel your situation is an emergency, please call 911 immediately. . Non-Emergent Contact Non-Emergency issues call your: Surgeon Call Non-Emergent contact if: you have a fever, temperature is above 101.5, your pain is not controlled, wound has increased redness, wound has increased pain . "Provider Documentation" section prepared by Omar Krueger. VTE Core Measure Inpt VTE Proph given/why not?: SCD's
--- NOTE | 2016-04-24 10:11 | Surgery Progress Note ---
Surgery Progress Note Date of Service Apr 24, 2016. Subjective Post OP Day: 3 + diet (regular), + feeling well Objective Vital Signs: Date Time Temp Pulse Resp B/P Pulse Ox O2 Delivery O2 Flow Rate FiO2 04/24/16 07:58 36.8 74 16 151/79 95 Room Air 04/24/16 00:35 Room Air 04/23/16 22:58 36.8 76 14 131/72 95 Room Air 04/23/16 16:30 93 Room Air 04/23/16 15:19 36.6 78 14 119/68 93 Room Air Physical Exam: MAGDALENO drainage (30 cc) Abdomen: non distended, soft Laboratory Results: Results Past 24 Hours Test 04/23/16 11:48 04/23/16 16:51 04/23/16 20:45 04/24/16 06:15 Range/Units Bedside Glucose 182 146 165 70-99 mg/dl Total Bilirubin 1.1 0.2-1 mg/dl Direct Bilirubin 0.5 0-0.2 mg/dl Aspartate Amino Transf (AST/SGOT) 34 15-37 U/L Alanine Aminotransferase (ALT/SGPT) 13 12-78 U/L Alkaline Phosphatase 85 45-117 U/L Total Protein 6.2 6.4-8.2 gm/dl Albumin 2.4 3.4-5.0 gm/dl Test 04/24/16 08:10 Range/Units Bedside Glucose 133 70-99 mg/dl Assessment & Plan s/ap lap thi CAD improving daily tolerating diet bili normalizing will d/c drain ok for discharge seen with Dr. oM
[2016-04-24 12:05] VITALS: BP 151/79; PULSE 74; TEMP 36.8; O2SAT 95
--- NOTE | 2016-04-24 15:21 | DISCHARGE SUMMARY ---
PRIMARY DISCHARGE DIAGNOSES: 1. Cholelithiasis with chronic cholecystitis and a recent cholecystotomy tube for acute cholecystitis. 2. 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 3. Postoperative urinary incontinence. 4. Hypertension. 5. Type 2 diabetes. 6. High cholesterol. PROCEDURES PERFORMED: Laparoscopic cholecystectomy and removal of cholecystotomy tube. CONSULTATIONS: [facility] cardiology for routine postoperative followup. HOSPITAL COURSE: The patient is an 85-year-old male with acute cholecystitis in February which was treated with a cholecystotomy tube given his recent cardiac stenting and antiplatelet therapy. He was now readmitted through same day and taken to the operating room for laparoscopic cholecystectomy. There was some chronic inflammation in the gallbladder neck, we were able to carefully dissect this out. We did place a drain. The procedure was well tolerated. He was transferred to telemetry for postoperative monitoring. Cardiology was consulted routinely. His lisinopril was continued. He has had bradycardia previously with a beta-peggy. His diabetes was covered with a sliding-scale insulin. On postoperative day 1, he was restarted on his Plavix. He was transferred to a regular floor. He did have some urinary incontinence, we started him on daily Flomax. His bilirubin bumped slightly and peaked at 2.0 on postoperative day #2. MAGDALENO drainage was serosanguineous. He was still taking mostly liquid diet. On day #2, his activity was limited. By day #3, he was ambulating in the hallways and tolerating a regular diet. He was tolerating oral analgesics. His bilirubin was normalizing at 1.1. MAGDALENO drainage remained serosanguineous and was decreasing. The MAGDALENO was removed. His abdomen was soft and flat. Incisions were healing well. He was at that time stable for discharge. DISCHARGE INSTRUCTIONS: Discharge home. Follow up with Dr. Mo within 2 weeks. Follow up with cardiology as regularly scheduled. DISCHARGE MEDICATIONS: Percocet 1 tablet every 4 hours. Resume home medications, Plavix 75 mg daily, aspirin 81 mg daily, Lipitor 80 mg daily, vitamin D 1000 units daily, Lantus 14 units in the morning, Zestril 5 mg daily, daily multivitamin, p.r.n. Nitrostat and iron supplement 65 mg daily. [facility]
== END 2016-04-24 13:17 | disposition home or self-care (01) ==
LOC: ENRESERV → ENRESERVDT → ENRESERVTM → C.ACU 09:18 → C.2E 12:53 → EDBEDREQ 04-22 11:33 → C.MSN 04-22 13:11
PROVIDERS: ADMIT Surgery; ATTEND Surgery
DX: K80.12 Calculus of gallbladder with acute and chronic cholecystitis without obstruction (principal); N99.89 Other postprocedural complications and disorders of genitourinary system; I25.10 Atherosclerotic heart disease of native coronary artery without angina pectoris; I10 Essential (primary) hypertension; E11.9 Type 2 diabetes mellitus without complications; E78.5 Hyperlipidemia, unspecified; Z85.46 Personal history of malignant neoplasm of prostate; Z79.82 Long term (current) use of aspirin; Z79.899 Other long term (current) drug therapy; I25.2 Old myocardial infarction; Z79.4 Long term (current) use of insulin; Z79.02 Long term (current) use of antithrombotics/antiplatelets

== ENCOUNTER 2016-05-02 16:24 | Inpatient (IN) | payer OTHER ==
[~2016-05-02] VITALS: Ht 162.6 cm; Wt 78.0 kg
[~2016-05-02 16:24] MED LIST changes: -CEFAZOLIN 2000 MG/60 ML D5W IV SCH; -HEPARIN SOD 5000 UNIT/0.5 ML CARP SQ SCH; -LACTATED RINGER'S 1000ML 1,000 ML IV SCH; +OXYC-57 PO
--- NOTE | 2016-05-02 17:07 | EMERGENCY ROOM VISIT NOTE ---
History Report prepared by Ivette: Keyanna Poe Under the Supervision of: Dr. Selma Rivera M.D. First contact with patient: 16:32 Chief Complaint: WEAKNESS Stated Complaint: NOT EATING, WEAKNESS, SURGERY LAST WEEK History of Present Illness The patient is a 85 year old male who presents to the Emergency Room with complaints of worsening weakness over the past several days. Per patient's daughter, the patient had his gallbladder removed 11 days ago and was discharged after 4 days. He seemed to be doing well up until 3 days ago, when he started to become weak. He also has only been eating 1-2 bites at a time since then. This is apparently out of character for him because he is typically a good eater. The patient saw his surgeon Dr. Mo 2 days ago who was trying to get him into rehab, but they could not schedule it due to insurance issues. Today, the patient's daughter spoke with Dr. Gomez, the patient's PCP , but he recommended that the patient be seen in the emergency room. Source of History: patient, family (daughter) Onset: 3 days ago Position: other (Global) Quality: other (weakness) Timing: worsening Note: Other symptoms: decreased appetite Review of Systems See HPI for pertinent positives & negatives. A total of 10 systems reviewed and were otherwise negative. Past Medical & Surgical Medical Problems: (1) Benign prostatic hypertrophy (2) CAD (coronary artery disease) (3) DM2 (diabetes mellitus, type 2) (4) HTN (hypertension) (5) Prostate cancer Surgical Problems: (1) History of carpal tunnel repair (2) S/P cholecystectomy (3) Stented coronary artery Family History FH: cancer Social History Smoking Status: Never Smoker Alcohol Use: none Drug Use: none Marital Status: Housing Status: lives with family Occupation Status: retired Current/Historical Medications Scheduled Aspirin (Aspirin Ec), 81 MG PO QAM Atorvastatin (Lipitor), 80 MG PO QAM Cholecalciferol (Vitamin D), 1,000 UNIT PO QAM Clopidogrel Bisulfate (Plavix), 75 MG PO QAM Ferrous Sulfate (Feosol), 65 MG PO DAILY Insulin Glargine (Lantus Solostar), 14 UNITS SC QAM Lisinopril (Zestril), 5 MG PO QAM Multivitamin (Multivitamin), 1 TAB PO QAM Scheduled PRN Nitroglycerin (Nitrostat), 1 TAB SL UD PRN for Chest Pain Allergies Coded Allergies: Pea (Verified Allergy, Severe, FRESH/RAW GREEN PEAS-THROAT SHUTDOWN, ) Physical Exam Vital Signs Date Time Temp Pulse Resp B/P Pulse Ox O2 Delivery O2 Flow Rate FiO2 05/02/16 19:09 79 124/68 99 Room Air 05/02/16 18:02 81 05/02/16 16:28 36.9 99 18 146/64 96 Room Air Physical Exam Vital signs reviewed. General: Elderly, well-appearing 85 year old male, in no significant distress. HEENT: No scleral icterus, PERRLA, ,labial ulcerations around the mouth, neck supple. Atraumatic. Cardiovascular: Regular rate and rhythm, no extra sounds. Pulmonary: Clear to auscultation bilaterally, normal work of breathing. Abdomen: Soft, nontender, nondistended, positive bowel sounds, multiple well healing laparoscopic incisions, no sign of infection. Rectal: Guaiac negative brown stool, multiple large rectal hemorrhoids. Musculoskeletal: Atraumatic, no peripheral edema. Neurologic: Patient awake alert and oriented x 3, full strength in all 4 extremities. Cranial nerves 2 through 12 grossly intact. Skin: Warm, dry, no rash Medical Decision & Procedures ER Provider Diagnostic Interpretation: X-ray results as stated below per interpretation by me and the radiologist: CHEST ONE VIEW PORTABLE CLINICAL HISTORY: Hypotension status post laparoscopic cholecystectomy. Weakness. COMPARISON STUDY: 03/06/2016 FINDINGS: There is mild respiratory motion artifact. The heart is the upper limits of normal in size. There is no failure. There is no focal pulmonary consolidation. There is minor basilar atelectasis. There is no significant pleural fluid. No free air is visualized.[ IMPRESSION: No active disease in the chest. Electronically signed by: Eduardo Burnham M.D. 05/02/2016 5:57 PM Dictated Date/Time: 05/02/2016 5:56 PM Laboratory Results Test 05/02/16 00:00 05/02/16 17:40 05/02/16 17:52 Urine Color DK YELLOW Urine Appearance CLEAR (CLEAR) Urine pH 5.0 (4.5-7.5) Urine Specific [place] 1.017 (1.000-1.030) Urine Protein 1+ (NEG) Urine Glucose (UA) NEG (NEG) Urine Ketones TRACE (NEG) Urine Occult Blood NEG (NEG) Urine Nitrite NEG (NEG) Urine Bilirubin NEG (NEG) Urine Urobilinogen NEG (NEG) Urine Leukocyte Esterase NEG (NEG) Urine WBC (Auto) 1-5 /hpf (0-5) Urine RBC (Auto) 5-10 /hpf (0-4) Urine Hyaline Casts (Auto) 1-5 /lpf (0-5) Urine Epithelial Cells (Auto) 10-20 /lpf (0-5) Urine Bacteria (Auto) NEG (NEG) Immature Granulocyte % (Auto) 0.3 % White Blood Count 7.85 K/uL (4.8-10.8) Red Blood Count 2.68 M/uL (4.7-6.1) Hemoglobin 8.3 g/dL (14.0-18.0) Hematocrit 25.7 % (42-52) Mean Corpuscular Volume 95.9 fL (80-100) Mean Corpuscular Hemoglobin 31.0 pg (25-34) Mean Corpuscular Hemoglobin Concent 32.3 g/dl (32-36) Platelet Count 267 K/uL (130-400) Mean Platelet Volume 9.8 fL (7.4-10.4) Neutrophils (%) (Auto) 83.4 % Lymphocytes (%) (Auto) 10.1 % Monocytes (%) (Auto) 6.0 % Eosinophils (%) (Auto) 0.1 % Basophils (%) (Auto) 0.1 % Neutrophils # (Auto) 6.55 K/uL (1.4-6.5) Lymphocytes # (Auto) 0.79 K/uL (1.2-3.4) Monocytes # (Auto) 0.47 K/uL (0.11-0.59) Eosinophils # (Auto) 0.01 K/uL (0-0.5) Basophils # (Auto) 0.01 K/uL (0-0.2) Immature Granulocyte # (Auto) 0.02 K/uL (0.00-0.02) Toxic Granulation 1+ Hypochromasia PRESENT Total Bilirubin 1.2 mg/dl (0.2-1) Direct Bilirubin 0.6 mg/dl (0-0.2) Aspartate Amino Transf (AST/SGOT) 131 U/L (15-37) Alanine Aminotransferase (ALT/SGPT) 45 U/L (12-78) Alkaline Phosphatase 238 U/L (45-117) Total Protein 7.3 gm/dl (6.4-8.2) Albumin 2.2 gm/dl (3.4-5.0) Lipase 221 U/L (73-393) Bedside Troponin I 0.030 ng/ml (0-0.045) Laboratory results per my review. Medications Administered Medications (Trade) Dose Ordered Sig/Yudelka Route Start Time Stop Time Status Last Admin Dose Admin Sodium Chloride (Nss 500ml) 500 ml @ 999 mls/hr Q31M STAT IV 05/02/16 17:15 05/02/16 17:45 DC 05/02/16 17:55 999 MLS/HR ECG Indication: weakness Rate (beats per minute): 83 Rhythm: normal sinus Findings: no acute ischemic change, no ectopy ED Course 1643: Past medical records reviewed. The patient was evaluated in room C12. A complete history and physical examination was performed. 1714: Ordered NSS 500 ml @ 999 mls/hr IV. 1919: Upon reevaluation, the patient is doing better following the fluids. I discussed laboratory and radiographic results with the patient and his family. They verbalized agreement of the treatment plan. 1942: I spoke with Dr. Rodríguez of the [facility]. The patient will be evaluated for further management and care. Medical Decision Differential diagnosis: Etiologies such as metabolic, infection, hypo/hyperglycemia, electrolyte abnormalities, cardiac sources, intracerebral event, toxicologic, neurologic, as well as others were entertained. This patient was evaluated and appeared to be in no significant distress. Physical examination reveals an elderly male with well healing abdominal incisions. He is guaiac negative from the rectum. Laboratory work reveals anemia, questionably postoperative. He did seem to improve after IV hydration. There is no sign of acute infection. The abdomen is largely nontender. Patient is generally weak and requires some assistance when ambulating to the restroom. 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 Daughter is concerned about the safety at home and feels that he should be considered for rehabilitation. Given his anemia, weakness and dehydration, he'll be evaluated by the hospitalist service for further management. Consults Time Called: 1927 Consulting Physician: Dr. Rodríguez of the [facility] Returned Call: [address] Patterson of the [facility]ist [facility]. The patient will be evaluated for further management and care. Impression Primary Impression: Dehydration Additional Impressions: Anemia Weakness S/P cholecystectomy Scribe Attestation The scribe's documentation has been prepared under my direction and personally reviewed by me in its entirety. I confirm that the note above accurately reflects all work, treatment, procedures, and medical decision making performed by me. Departure Information Dispostion Being Evaluated By Hospitalist Referrals Get Henderson M.D. (PCP) Patient Instructions My [facility] Problem Qualifiers Additional Impressions: Anemia Anemia type: unspecified type Qualified Codes: D64.9 - Anemia, unspecified
[2016-05-02] MEDS ORDERED: SODIUM CHLORIDE 0.9% 500ML 500 ML IV STA (17:15)
--- NOTE | 2016-05-02 17:59 | DIAGNOSTIC IMAGING REPORT ---
CHEST ONE VIEW PORTABLE CLINICAL HISTORY: Hypotension status post laparoscopic cholecystectomy. Weakness. COMPARISON STUDY: 03/06/2016 FINDINGS: There is mild respiratory motion artifact. The heart is the upper limits of normal in size. There is no failure. There is no focal pulmonary consolidation. There is minor basilar atelectasis. There is no significant pleural fluid. No free air is visualized.[ IMPRESSION: No active disease in the chest. Electronically signed by: Eduardo Burnham M.D. 05/02/2016 5:57 PM Dictated Date/Time: 05/02/2016 5:56 PM
[2016-05-02 18:18] LABS: BASO % 0.1 %; BASO ABS # 0.01 K/uL (0-0.2); EOS % 0.1 %; HEMATOCRIT 25.7 % (42-52); IG% 0.3 %; LYMPH % 10.1 %; LYMPH ABS # 0.79 K/uL (1.2-3.4); MEAN CELL VOLUME 95.9 fL (80-100); MEAN CORPUSCULAR HGB CONC 32.3 g/dl (32-36); MEAN PLATELET VOLUME 9.8 fL (7.4-10.4); NEUT % 83.4 %; PLATELET COUNT 267 K/uL (130-400); RED BLOOD COUNT 2.68 M/uL (4.7-6.1); WHITE BLOOD COUNT 7.85 K/uL (4.8-10.8)
[2016-05-02] MEDS ORDERED: FERR1TAB24 PO (18:32)
[2016-05-02] MEDS ORDERED: CHOL100010 PO (18:34)
[2016-05-02 18:36] LABS: BUN/CREATININE RATIO 14.1 (10-20); CALCIUM 8.4 mg/dl (8.5-10.1); MAGNESIUM 2.7 mg/dl (1.8-2.4); POTASSIUM 3.9 mmol/L (3.5-5.1)
[2016-05-02 18:51] LABS: COMPLETE YES; HYPOCHROMIA PRESENT; TOXIC GRANULATION 1+
[2016-05-02] MEDS ORDERED: ONDANSETRON INJ 2 MG/ML 2 ML VIAL IV PRN (21:00)
[2016-05-02] MEDS ORDERED: ACETAMINOPHEN 325 MG TAB PO PRN (21:00)
[2016-05-02] MEDS ORDERED: DEXTROSE 50% 50 ML SYR IV PRN (21:15)
[2016-05-02] MEDS ORDERED: GLUCAGON FOR INJ 1 MG VIAL SQ PRN (21:15)
[2016-05-02] MEDS ORDERED: GLUCOSE 40% GEL 15 GM TUBE PO PRN (21:15)
[2016-05-02] MEDS ORDERED: NITROGLYCERIN 0.4 MG SL PER TAB CHARGE SL PRN (21:15)
[2016-05-02] MEDS ORDERED: GLUCOSE 10 TABS/TUBE PO PRN (21:15)
[2016-05-02] MEDS ORDERED: PHARMACY GLYCEMIC MGMT CONSULT PRN (21:45)
[2016-05-02 22:37] LABS: HEMATOCRIT 23.5 % (42-52)
[2016-05-02 22:54] VITALS: BP 147/72; PULSE 74; TEMP 36.8; O2SAT 98; Ht 162.6 cm; Wt 78.0 kg
[2016-05-02] MEDS ORDERED: SODIUM CHLORIDE 0.9% 1000ML 1,000 ML IV SCH (23:20)
[2016-05-02 23:28] LABS: URINE APPEARANCE CLEAR (CLEAR); URINE BILIRUBIN NEG (NEG); URINE COLOR DK YELLOW; URINE NITRITE NEG (NEG); URINE SPECIFIC GRAVITY 1.017 (1.000-1.030); UROBILINOGEN NEG (NEG); ZZUR CULT IF INDIC CLEAN CATCH NO
[2016-05-02 23:41] LABS: MANUAL MICROSCOPIC REQUIRED? NO; REVIEW REQ? NO
--- NOTE | 2016-05-03 00:22 | History and Physical ---
History & Physical Date & Time of Service: May 03, 2016 at 00:04 Chief Complaint: Weakness Primary Care Physician: Get Henderson M.D. History of Present Illness Source: patient, family Patient is a 85 Yr old male with PMH of CAD s/p stents, HTN, HLP, DM II who was recently discharged 2 weeks ago after having cholecystectomy presents with history of worsening generalized weakness, decreased appetite since last 4 days. Patient denies any fever, chills, chest pain, SOB, cough, pain or discharge from surgical site, dizziness, headache. Patient has seen his surgeon 2 days ago who recommended him to rehab but he could not be scheduled secondary to insurance issues. Also he contacted his PCP today who recommended that he get evaluated at ED. Past Medical/Surgical History Medical Problems: (1) Benign prostatic hypertrophy Status: Chronic (2) CAD (coronary artery disease) Permanent Comment: s/p stent placement Status: Chronic (3) DM2 (diabetes mellitus, type 2) Status: Chronic (4) HTN (hypertension) Status: Chronic (5) Prostate cancer Permanent Comment: Diagnosed with adenocarcinoma of the prostate in 11/2013. bone scan 12/06/13 was negative for metastasis. Ongoing treatment with Lupron injections. S/P radiation therapy completed on 06/08/2014. Status: Chronic Surgical Problems: (1) History of carpal tunnel repair Status: Resolved (2) Stented coronary artery Status: Resolved Family History FH: cancer Reviewed but not significant Social History Smoking Status: Never Smoker Drug Use: none Marital Status: Housing status: lives with family Occupational Status: retired Allergies Uncoded Allergies: FRESH/RAW GREEN PEAS (Allergy, Unknown, "THROAT SHUTDOWN", 05/02/16) Home Medications Scheduled Aspirin (Aspirin Ec), 81 MG PO QAM Atorvastatin (Lipitor), 80 MG PO QAM Cholecalciferol (Vitamin D), 1,000 UNIT PO QAM Clopidogrel Bisulfate (Plavix), 75 MG PO QAM Ferrous Sulfate (Feosol), 65 MG PO DAILY Insulin Glargine (Lantus Solostar), 14 UNITS SC QAM Lisinopril (Zestril), 5 MG PO QAM Multivitamin (Multivitamin), 1 TAB PO QAM Scheduled PRN Nitroglycerin (Nitrostat), 1 TAB SL UD PRN for Chest Pain Review of Systems See HPI for pertinent positives & negatives. A total of 10 systems reviewed and were otherwise negative. Physical Exam Vital Signs Date Time Temp Pulse Resp B/P Pulse Ox O2 Delivery O2 Flow Rate FiO2 05/02/16 22:54 36.8 74 20 147/72 98 Room Air 05/02/16 21:16 75 16 143/60 96 Room Air 05/02/16 19:09 79 124/68 99 Room Air 05/02/16 18:02 81 05/02/16 16:28 36.9 99 18 146/64 96 Room Air General Appearance: WD/WN, no apparent distress Head: normocephalic, atraumatic Eyes: normal inspection, PERRL, EOMI, sclerae normal ENT: normal ENT inspection, hearing grossly normal Neck: supple, no adenopathy, trachea midline Respiratory/Chest: chest non-tender, lungs clear, normal breath sounds, no respiratory distress Cardiovascular: regular rate, rhythm, no edema, no JVD, no murmur Abdomen/GI: normal bowel sounds, non tender, soft, no organomegaly, + pertinent finding (Healing surgical scrs without erythema, discharge) Back: normal inspection, no CVA tenderness Extremities/Musculoskelatal: normal inspection, no calf tenderness, no pedal edema, non-tender Neurologic/Psych: 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 as tested, no motor/sensory deficits, alert, normal mood/affect, oriented x 3 Skin: normal color, warm/dry Lymphatic: no adenopathy Diagnostics Laboratory Results Results Past 24 Hours Test 05/02/16 17:40 05/02/16 17:52 05/02/16 22:04 Range/Units White Blood Count 7.85 4.8-10.8 K/uL Red Blood Count 2.68 4.7-6.1 M/uL Hemoglobin 8.3 7.6 14.0-18.0 g/dL Hematocrit 25.7 23.5 42-52 % Mean Corpuscular Volume 95.9 80-100 fL Mean Corpuscular Hemoglobin 31.0 25-34 pg Mean Corpuscular Hemoglobin Concent 32.3 32-36 g/dl Platelet Count 267 130-400 K/uL Mean Platelet Volume 9.8 7.4-10.4 fL Neutrophils (%) (Auto) 83.4 % Lymphocytes (%) (Auto) 10.1 % Monocytes (%) (Auto) 6.0 % Eosinophils (%) (Auto) 0.1 % Basophils (%) (Auto) 0.1 % Neutrophils # (Auto) 6.55 1.4-6.5 K/uL Lymphocytes # (Auto) 0.79 1.2-3.4 K/uL Monocytes # (Auto) 0.47 0.11-0.59 K/uL Eosinophils # (Auto) 0.01 0-0.5 K/uL Basophils # (Auto) 0.01 0-0.2 K/uL RDW Standard Deviation 57.2 36.4-46.3 fL RDW Coefficient of Variation 16.2 11.5-14.5 % Immature Granulocyte % (Auto) 0.3 % Immature Granulocyte # (Auto) 0.02 0.00-0.02 K/uL Toxic Granulation 1+ Hypochromasia PRESENT Sodium Level 133 136-145 mmol/L Potassium Level 3.9 3.5-5.1 mmol/L Chloride Level 97 98-107 mmol/L Carbon Dioxide Level 25 21-32 mmol/L Anion Gap 11.0 3-11 mmol/L Blood Urea Nitrogen 14 7-18 mg/dl Creatinine 1.00 0.60-1.40 mg/dl Est Creatinine Clear Calc Drug Dose 52.8 ml/min Estimated GFR () 80.3 Estimated GFR (Non- 69.3 BUN/Creatinine Ratio 14.1 10-20 Random Glucose 133 70-99 mg/dl Calcium Level 8.4 8.5-10.1 mg/dl Magnesium Level 2.7 1.8-2.4 mg/dl Total Bilirubin 1.2 0.2-1 mg/dl Direct Bilirubin 0.6 0-0.2 mg/dl Aspartate Amino Transf (AST/SGOT) 131 15-37 U/L Alanine Aminotransferase (ALT/SGPT) 45 12-78 U/L Alkaline Phosphatase 238 45-117 U/L Total Protein 7.3 6.4-8.2 gm/dl Albumin 2.2 3.4-5.0 gm/dl Lipase 221 73-393 U/L Bedside Troponin I 0.030 0-0.045 ng/ml Diagnostic Radiology CXR: No active disease in the chest Normal EKG (NSR) Impression Assessment and Plan Generalized weakness/Decreased appetite: Likely deconditioning from recent surgery and comorbidities including anemia S/P cholecystectomy 2 weeks ago Gently IV fluids PT/OT May benefit from rehab placement Check FOBT, UA for any source of bleeding Monitor H&H, Transfuse PRN CAD S/P stents Continue ASA, Plavix, statins Stable DM II: ISS, Lantus Accu checks Hypertension: Stable Continue home medications H/O Prostate cancer DVT Px: SCDs Code Status; Full code Advanced Directives Existing Advance Directive: No Existing Living Will: No Existing Power of Final Inspector Movement Assembly: No VTE Prophylaxis VTE Risk Assessment Done? Y/N: Yes Risk Level: Low
[2016-05-03 05:57] LABS: HEMATOCRIT 24.3 % (42-52)
[2016-05-03 07:53] VITALS: BP 155/67; PULSE 63; TEMP 36.5; O2SAT 97
[2016-05-03] MEDS ORDERED: INSULIN GLARGINE SOLOSTAR 100 UNITS/ML 3 ML PEN SC SCH (08:00)
[2016-05-03] MEDS: ASPIRIN 81 MG ECTAB PO SCH (08:12)
[2016-05-03] MEDS: ATORVASTATIN 40 MG TAB PO SCH (08:13)
[2016-05-03] MEDS: FERROUS SULFATE 325 MG TAB PO SCH (08:13)
[2016-05-03] MEDS: MULTIVITAMIN TAB PO SCH (08:13)
[2016-05-03] MEDS: LISINOPRIL 5 MG TAB PO SCH (08:14)
[2016-05-03] MEDS: CLOPIDOGREL BISULFATE 75 MG TAB PO SCH (08:14)
[2016-05-03] MEDS: INSULIN GLARGINE SOLOSTAR 100 UNITS/ML 3 ML PEN SC SCH (09:20)
[2016-05-03] MEDS: INSULIN ASPART 100 UNITS/ML 3 ML PEN SC SCH ×4 (09:52→21:40)
--- NOTE | 2016-05-03 11:45 | Progress Note ---
Subjective Date of Service: May 03, 2016. Subjective Pt evaluation today including: conversation w/ patient, physical exam, lab review, review of studies, review of inpatient medication list Saw/examined the patient in room 460 States he has been weak every since his cholecystectomy last week (April 21) No abdominal pain, no change in bowel habits, no nausea/vomiting/diarrhea States he feels okay while laying down, uses a four-wheeled walker for ambulation at baseline Problem List Medical Problems: (1) Anemia Status: Acute (2) Dehydration Status: Acute (3) STEMI (ST elevation myocardial infarction) Status: Acute (4) Weakness Status: Acute Social History Problems: (1) S/P cholecystectomy Status: Acute Review of Systems Constitutional: + fatigue, + weakness, No chills, No fever Respiratory: No cough, No shortness of breath, No sputum Cardiac: No chest pain, No edema, No palpitations Abdomen: No GI bleeding, No constipation, No diarrhea, No nausea, No pain, No vomiting Male : No dysuria, No hematuria, No urinary frequency Neurologic: + balance problems (chronic, uses a walker for ambulation) Heme: No abnormal bleeding/bruising Medications Current Inpatient Medications Medications (Trade) Dose Ordered Sig/Yudelka Route Start Time Stop Time Status Last Admin Dose Admin Acetaminophen (Tylenol Tab) 650 mg Q4H PRN PO 05/02/16 21:00 06/01/16 20:59 Ondansetron HCl 4 mg 4 mg Q6H PRN IV 05/02/16 21:00 06/01/16 20:59 Sodium Chloride (Nss 1000ml) 1,000 ml @ 80 mls/hr [id number] IV 05/02/16 23:20 06/01/16 23:19 05/02/16 23:32 80 MLS/HR Insulin Aspart (novoLOG ASPART) SLIDING SCALE If C... ACHS SC 05/03/16 06:30 06/02/16 06:59 05/03/16 09:52 3 UNITS Glucose (Glucose 40% Gel) 15-30 GRAMS 15 GRAMS... UD PRN PO 05/02/16 21:15 06/01/16 21:14 Glucose (Glucose Chew Tab) 4-8 Tablets 4 Tabl... UD PRN PO 05/02/16 21:15 06/01/16 21:14 Dextrose (Dextrose 50% 50ML Syringe) 25-50ML OF 50% DW IV FOR... UD PRN IV 05/02/16 21:15 06/01/16 21:14 Glucagon (Glucagon Inj) 1 mg UD PRN SQ 05/02/16 21:15 06/01/16 21:14 Miscellaneous Information (Consult Glycemic Management Pharmacy) 1 ea UD PRN N/A 05/02/16 21:45 06/01/16 21:44 Aspirin (Ecotrin Tab) 81 mg QAM PO 05/03/16 08:00 06/02/16 08:59 05/03/16 08:12 81 MG Atorvastatin Calcium (Lipitor Tab) 80 mg QAM PO 05/03/16 08:00 06/02/16 08:59 05/03/16 08:13 80 MG Clopidogrel Bisulfate (plAVix TAB) 75 mg QAM PO 05/03/16 08:00 06/02/16 08:59 05/03/16 08:14 75 MG Lisinopril (Zestril Tab) 5 mg QAM PO 05/03/16 08:00 06/02/16 08:59 05/03/16 08:14 5 MG Multivitamins (Multivitamin Tab) 1 tab QAM PO 05/03/16 08:00 06/02/16 08:59 05/03/16 08:13 1 TAB Nitroglycerin (Nitrostat Tab) 0.4 mg UD PRN SL 05/02/16 21:15 06/01/16 21:14 Ferrous Sulfate (Feosol Tab) 325 mg DAILY PO 05/03/16 08:00 06/02/16 07:59 05/03/16 08:13 325 MG Insulin Glargine (Lantus Solostar Pen) 10 unit QAM SC 05/03/16 08:00 06/02/16 07:59 05/03/16 09:20 10 UNIT Objective Vital Signs Date Time Temp Pulse Resp B/P Pulse Ox O2 Delivery O2 Flow Rate FiO2 05/03/16 08:00 Room Air 05/03/16 07:53 36.5 63 18 155/67 97 Room Air 05/03/16 00:00 Room Air 05/02/16 22:54 36.8 74 20 147/72 98 Room Air 05/02/16 21:16 75 16 143/60 96 Room Air 05/02/16 19:09 79 124/68 99 Room Air 05/02/16 18:02 81 05/02/16 16:28 36.9 99 18 146/64 96 Room Air Physical Exam General Appearance: no apparent distress, + pertinent finding (elderly, frail gentleman) Respiratory/Chest: lungs clear, normal breath sounds, no respiratory distress, no accessory muscle use Cardiovascular: regular rate, rhythm, no edema, no murmur Abdomen: normal bowel sounds, non tender, soft Extremities: normal inspection, no pedal edema Neurologic/Psychiatric: no motor/sensory deficits, alert, normal mood/affect Skin: normal color Lymphatic: no adenopathy Laboratory Results Last 24 Hours Test 05/02/16 17:40 05/02/16 17:52 05/02/16 22:04 05/03/16 05:00 White Blood Count 7.85 K/uL Red Blood Count 2.68 M/uL Hemoglobin 8.3 g/dL 7.6 g/dL 7.8 g/dL Hematocrit 25.7 % 23.5 % 24.3 % Mean Corpuscular Volume 95.9 fL Mean Corpuscular Hemoglobin 31.0 pg Mean Corpuscular Hemoglobin Concent 32.3 g/dl Platelet Count 267 K/uL Mean Platelet Volume 9.8 fL Neutrophils (%) (Auto) 83.4 % Lymphocytes (%) (Auto) 10.1 % Monocytes (%) (Auto) 6.0 % Eosinophils (%) (Auto) 0.1 % Basophils (%) (Auto) 0.1 % Neutrophils # (Auto) 6.55 K/uL Lymphocytes # (Auto) 0.79 K/uL Monocytes # (Auto) 0.47 K/uL Eosinophils # (Auto) 0.01 K/uL Basophils # (Auto) 0.01 K/uL RDW Standard Deviation 57.2 fL RDW Coefficient of Variation 16.2 % Immature Granulocyte % (Auto) 0.3 % Immature Granulocyte # (Auto) 0.02 K/uL Toxic Granulation 1+ Hypochromasia PRESENT Sodium Level 133 mmol/L Potassium Level 3.9 mmol/L Chloride Level 97 mmol/L Carbon Dioxide Level 25 mmol/L Anion Gap 11.0 mmol/L Blood Urea Nitrogen 14 mg/dl Creatinine 1.00 mg/dl Est Creatinine Clear Calc Drug Dose 52.8 ml/min Estimated GFR () 80.3 Estimated GFR (Non- 69.3 BUN/Creatinine Ratio 14.1 Random Glucose 133 mg/dl Calcium Level 8.4 mg/dl Magnesium Level 2.7 mg/dl Total Bilirubin 1.2 mg/dl Direct Bilirubin 0.6 mg/dl Aspartate Amino Transf (AST/SGOT) 131 U/L Alanine Aminotransferase (ALT/SGPT) 45 U/L Alkaline Phosphatase 238 U/L Total Protein 7.3 gm/dl Albumin 2.2 gm/dl Lipase 221 U/L Bedside Troponin I 0.030 ng/ml Test 05/03/16 08:02 Bedside Glucose 104 mg/dl Assessment and Plan This is an 85 year old male with PMH of CAD s/p stents, HTN, DM2, HLD presents with weakness one week after cholecystectomy Generalized Weakness * functional decline * possibly related to anemia * no other symptoms to note * April 21 - had cholecystectomy - no abdominal pain, no GI bleeding, no diarrhea noted * stop IVFs, encourage PO intake * PT/OT * monitor H/H - may need to transfuse if Hgb does not rise about 8 and weakness persists * discharge planning evaluation Anemia * in the post-operative setting * monitor H/H, transfuse PRN CAD s/p stents * no chest pain, no shortness of breath * continue aspirin, Plavix, statin, NONI-I DM2 * hold oral agents * insulin sliding scale * Lantus 10 units HTN * blood pressure stable * continue NONI-I DVT ppx * SCDs FULL CODE
[2016-05-03 13:23] LABS: HEMATOCRIT 25.9 % (42-52)
[2016-05-03 15:57] LABS: HEMATOCRIT 23.8 % (42-52); MEAN CORPUSCULAR HGB CONC 32.4 g/dl (32-36); MEAN PLATELET VOLUME 9.1 fL (7.4-10.4); PLATELET COUNT 241 K/uL (130-400); RED BLOOD COUNT 2.48 M/uL (4.7-6.1); WHITE BLOOD COUNT 3.64 K/uL (4.8-10.8)
[2016-05-03 16:37] VITALS: BP 136/57; PULSE 64; TEMP 36.3; O2SAT 98
--- NOTE | 2016-05-03 16:46 | Pharmacy Progress Note ---
Glycemic Control Intl Consult Date of Service May 03, 2016. Scope Glycemic Pharmacist consulted by Dr Blakely on 05/02/16 for glycemic control and to write orders per [facility] inpatient glycemic control protocol Objective Weight (Kilograms): 78.000 Accuchecks BSG (last 24hrs): Test 05/02/16 17:40 05/03/16 08:02 05/03/16 11:55 Random Glucose 133 mg/dl (70-99) Bedside Glucose 104 mg/dl (70-99) 147 mg/dl (70-99) Laboratory Data (last 24hrs) Test 05/02/16 17:40 05/03/16 15:51 Anion Gap 11.0 mmol/L BUN/Creatinine Ratio 14.1 Blood Urea Nitrogen 14 mg/dl Creatinine 1.00 mg/dl Potassium Level 3.9 mmol/L Sodium Level 133 mmol/L White Blood Count 7.85 K/uL 3.64 K/uL Red Blood Count 2.68 M/uL Hemoglobin 8.3 g/dL Hematocrit 25.7 % Mean Corpuscular Volume 95.9 fL Mean Corpuscular Hemoglobin 31.0 pg Mean Corpuscular Hemoglobin Concent 32.3 g/dl Platelet Count 267 K/uL Mean Platelet Volume 9.8 fL Neutrophils (%) (Auto) 83.4 % Lymphocytes (%) (Auto) 10.1 % Monocytes (%) (Auto) 6.0 % Eosinophils (%) (Auto) 0.1 % Basophils (%) (Auto) 0.1 % Neutrophils # (Auto) 6.55 K/uL Lymphocytes # (Auto) 0.79 K/uL Monocytes # (Auto) 0.47 K/uL Eosinophils # (Auto) 0.01 K/uL Basophils # (Auto) 0.01 K/uL HbA1c 03/08/16 A1c 5.9% Recent Pertinent Medications Outpatient Anti-diabetic Regimen: * Lantus 14 units qam * A1c = 5.9 % 03/08/16 The patient is currently receiving: * Basal insulin: Lantus 14 units every am * Correctional Insulin: Novolog Correction per scale ACHS Goal Range: Low 110 mg/dL - High 140 mg/dL Correction Factor: 55 mg/dL/unit * Prandial insulin: Per carb ratio of 1 unit per 19 grams CHO consumed * Oral Agents: none Risk Factors for Insulin Resistance: * Steroids: no * Infection: no * Pressors: no * IVF: NS @ 80 ml/hr * Recent Surgery: no * Diet: type 2 diabetic * Mechanical Ventilation: no Assessment & Plan ASSESSMENT: * ADA & AACE recommend a goal blood sugar range 140-180 mg/dl for the majority of critically ill & non-critically ill patients. However, more stringent targets may be selected in individual cases. * 75 yo type 2 diabetic, possibly too tightly controlled with some hypoglycemic episodes (previous A1c 5.9%). Will repeat A1c to better assess more recent glycemic control. Decreased Lantus and started weight-based Novolog coverage. Will reassess in am. PLAN FOR INPATIENT GLYCEMIC CONTROL: * Basal insulin with LANTUS 10 units SQ qam * Correctional Insulin with NOVOLOG per scale ACHS or Q6hrs while NPO * Goal Range: Low 110 mg/dL - High 140 mg/dL * Correction Factor: 55 mg/dL/unit * Nutritional / Prandial insulin per carb ratio of 1 unit per 19 grams CHO consumed * Please note that the plan above was derived based on current level of insulin resistance and hospital stress. These recommendations are appropriate for inpatient admission only. Plan of care upon discharge will need to be reassessed to avoid potential outpatient hypo/hyperglycemia. Thank you.
[2016-05-03 22:40] VITALS: BP 149/62; PULSE 72; TEMP 36.8; O2SAT 98
[2016-05-04 07:24] VITALS: BP 156/70; PULSE 59; TEMP 36.7; O2SAT 99
[2016-05-04] MEDS: ASPIRIN 81 MG ECTAB PO SCH (08:53)
[2016-05-04] MEDS: LISINOPRIL 5 MG TAB PO SCH (08:53)
[2016-05-04] MEDS: CLOPIDOGREL BISULFATE 75 MG TAB PO SCH (08:53)
[2016-05-04] MEDS: ATORVASTATIN 40 MG TAB PO SCH (08:53)
[2016-05-04] MEDS: MULTIVITAMIN TAB PO SCH (08:53)
[2016-05-04] MEDS: FERROUS SULFATE 325 MG TAB PO SCH (08:53)
[2016-05-04] MEDS: INSULIN ASPART 100 UNITS/ML 3 ML PEN SC SCH ×4 (08:54→20:55)
[2016-05-04] MEDS: INSULIN GLARGINE SOLOSTAR 100 UNITS/ML 3 ML PEN SC SCH (08:55)
--- NOTE | 2016-05-04 11:43 | Progress Note ---
Subjective Date of Service: May 04, 2016. Subjective Pt evaluation today including: conversation w/ patient, physical exam, lab review, review of studies, review of inpatient medication list Saw/examined the patient in room 460 +weakness persists Has been walking around with walker, no physical issues to note no shortness of breath, no chest pain no abdominal pain Problem List Medical Problems: (1) Anemia Status: Acute (2) Dehydration Status: Acute (3) STEMI (ST elevation myocardial infarction) Status: Acute (4) Weakness Status: Acute Surgical Problems: (1) S/P cholecystectomy Status: Chronic Review of Systems Constitutional: + fatigue, + weakness, No chills, No fever Respiratory: No cough, No shortness of breath Cardiac: No chest pain Abdomen: No nausea, No pain Neurologic: + weakness Medications Current Inpatient Medications Medications (Trade) Dose Ordered Sig/Yudelka Route Start Time Stop Time Status Last Admin Dose Admin Acetaminophen (Tylenol Tab) 650 mg Q4H PRN PO 05/02/16 21:00 06/01/16 20:59 Ondansetron HCl (Zofran Inj) 4 mg Q6H PRN IV 05/02/16 21:00 06/01/16 20:59 Insulin Aspart (novoLOG ASPART) SLIDING SCALE If C... ACHS SC 05/03/16 06:30 06/02/16 06:59 05/04/16 08:54 1 UNITS Glucose (Glucose 40% Gel) 15-30 GRAMS 15 GRAMS... UD PRN PO 05/02/16 21:15 06/01/16 21:14 Glucose (Glucose Chew Tab) 4-8 Tablets 4 Tabl... UD PRN PO 05/02/16 21:15 06/01/16 21:14 Dextrose (Dextrose 50% 50ML Syringe) 25-50ML OF 50% DW IV FOR... UD PRN IV 05/02/16 21:15 06/01/16 21:14 Glucagon (Glucagon Inj) 1 mg UD PRN SQ 05/02/16 21:15 06/01/16 21:14 Miscellaneous Information (Consult Glycemic Management Pharmacy) 1 ea UD PRN N/A 05/02/16 21:45 06/01/16 21:44 Aspirin (Ecotrin Tab) 81 mg QAM PO 05/03/16 08:00 06/02/16 08:59 05/04/16 08:53 81 MG Atorvastatin Calcium (Lipitor Tab) 80 mg QAM PO 05/03/16 08:00 06/02/16 08:59 05/04/16 08:53 80 MG Clopidogrel Bisulfate (plAVix TAB) 75 mg QAM PO 05/03/16 08:00 06/02/16 08:59 05/04/16 08:53 75 MG Lisinopril (Zestril Tab) 5 mg QAM PO 05/03/16 08:00 06/02/16 08:59 05/04/16 08:53 5 MG Multivitamins (Multivitamin Tab) 1 tab QAM PO 05/03/16 08:00 06/02/16 08:59 05/04/16 08:53 1 TAB Nitroglycerin (Nitrostat Tab) 0.4 mg UD PRN SL 05/02/16 21:15 06/01/16 21:14 Ferrous Sulfate (Feosol Tab) 325 mg DAILY PO 05/03/16 08:00 06/02/16 07:59 05/04/16 08:53 325 MG Insulin Glargine (Lantus Solostar Pen) 10 unit QAM SC 05/03/16 08:00 06/02/16 07:59 05/04/16 08:55 10 UNIT Objective Vital Signs Date Time Temp Pulse Resp B/P Pulse Ox O2 Delivery O2 Flow Rate FiO2 05/04/16 08:20 Room Air 05/04/16 07:24 36.7 59 18 156/70 99 Room Air 05/04/16 00:00 Room Air 05/03/16 22:40 36.8 72 16 149/62 98 Room Air 05/03/16 20:00 Room Air 05/03/16 16:37 36.3 64 18 136/57 98 Room Air 05/03/16 16:00 Room Air Physical Exam General Appearance: no apparent distress Respiratory/Chest: lungs clear, normal breath sounds, no respiratory distress, no accessory muscle use Cardiovascular: regular rate, rhythm, no edema, no murmur Abdomen: normal bowel sounds, non tender, soft, no organomegaly, no pulsatile mass Laboratory Results Last 24 Hours Test 05/03/16 11:55 05/03/16 13:14 05/03/16 15:51 05/03/16 16:47 Bedside Glucose 147 mg/dl 124 mg/dl Hemoglobin 8.4 g/dL 7.7 g/dL Hematocrit 25.9 % 23.8 % White Blood Count 3.64 K/uL Red Blood Count 2.48 M/uL Mean Corpuscular Volume 96.0 fL Mean Corpuscular Hemoglobin 31.0 pg Mean Corpuscular Hemoglobin Concent 32.4 g/dl RDW Standard Deviation 57.3 fL RDW Coefficient of Variation 16.2 % Platelet Count 241 K/uL Mean Platelet Volume 9.1 fL Test 05/03/16 20:24 05/04/16 05:40 05/04/16 07:45 Bedside Glucose 172 mg/dl 108 mg/dl Assessment and Plan This is an 85 year old male with PMH of CAD s/p stents, HTN, DM2, HLD presents with weakness one week after cholecystectomy Generalized Weakness 05/04 * ambulating with walker * PT/OT pending * discharge planning pending 05/03 * functional decline * possibly related to anemia * no other symptoms to note * April 21 - had cholecystectomy - no abdominal pain, no GI bleeding, no diarrhea noted * stop IVFs, encourage PO intake * PT/OT * monitor H/H - may need to transfuse if Hgb does not rise about 8 and weakness persists * discharge planning evaluation Anemia 05/04 * will type/cross two units * hold transfusion for now 05/03 * in the post-operative setting * monitor H/H, transfuse PRN CAD s/p stents * no chest pain, no shortness of breath * continue aspirin, Plavix, statin, NONI-I DM2 * hold oral agents * insulin sliding scale * Lantus 10 units HTN * blood pressure stable * continue NONI-I DVT ppx * SCDs FULL CODE
[2016-05-04 14:52] VITALS: BP 148/61; PULSE 73; TEMP 36.4; O2SAT 98
[2016-05-04 23:05] VITALS: BP 170/74; PULSE 75; TEMP 36.7; O2SAT 97
[2016-05-05 06:58] LABS: ESTIMATED AVERAGE GLUCOSE 111 mg/dl; HA1C FLAG Normal (Normal)
[2016-05-05 07:14] VITALS: BP 142/74; PULSE 82; TEMP 36.8; O2SAT 95
[2016-05-05 07:38] LABS: HEMATOCRIT 27.4 % (42-52); MEAN CELL VOLUME 96.8 fL (80-100); MEAN CORPUSCULAR HEMOGLOBIN 30.7 pg (25-34); MEAN CORPUSCULAR HGB CONC 31.8 g/dl (32-36); MEAN PLATELET VOLUME 9.3 fL (7.4-10.4); PLATELET COUNT 326 K/uL (130-400); RED BLOOD COUNT 2.83 M/uL (4.7-6.1)
[2016-05-05 08:05] LABS: CALCIUM 8.4 mg/dl (8.5-10.1); MAGNESIUM 2.4 mg/dl (1.8-2.4); POTASSIUM 3.7 mmol/L (3.5-5.1)
[2016-05-05] MEDS: ASPIRIN 81 MG ECTAB PO SCH (08:22)
[2016-05-05] MEDS: CLOPIDOGREL BISULFATE 75 MG TAB PO SCH (08:22)
[2016-05-05] MEDS: ATORVASTATIN 40 MG TAB PO SCH (08:22)
[2016-05-05] MEDS: LISINOPRIL 5 MG TAB PO SCH (08:22)
[2016-05-05] MEDS: FERROUS SULFATE 325 MG TAB PO SCH (08:22)
[2016-05-05] MEDS: MULTIVITAMIN TAB PO SCH (08:23)
[2016-05-05 08:30] LABS: BUN/CREATININE RATIO 12.4 (10-20); CREATININE 0.89 mg/dl (0.60-1.40)
[2016-05-05] MEDS: INSULIN ASPART 100 UNITS/ML 3 ML PEN SC SCH ×4 (08:30→20:12)
[2016-05-05] MEDS: INSULIN GLARGINE SOLOSTAR 100 UNITS/ML 3 ML PEN SC SCH (08:31)
--- NOTE | 2016-05-05 10:03 | Pharmacy Progress Note ---
Glycemic: Assessment & Plan Date of Service May 05, 2016. Assessment & Plan Assessment * BSG's ranging 132-167 mg/dL over 24 hours with no changes made to insulin regimen x48 hours Plan Continue the following: * Basal insulin: Lantus 10 units every 24 hours - 1/2 dose for BSG < 110 mg/dL * Correctional Insulin: Novolog Correction per scale ACHS Goal Range: Low 110 mg/dL - High 140 mg/dL Correction Factor: 55 mg/dL/unit * Prandial insulin: Per carb ratio of 1 unit per 19 grams CHO consumed Pharmacy will sign-off on glycemic management at this time. Please re-consult if desired. * Please note that the plan above was derived based on current level of insulin resistance and hospital stress. These recommendations are appropriate for inpatient admission only. Plan of care upon discharge will need to be reassessed to avoid potential outpatient hypo/hyperglycemia.
--- NOTE | 2016-05-05 14:23 | Progress Note ---
Subjective Date of Service: May 05, 2016. Subjective Pt evaluation today including: conversation w/ patient, physical exam, lab review, review of studies, review of inpatient medication list Saw/examined the patient in room 460 +Weakness no other symptoms to note, no abdominal pain Problem List Medical Problems: (1) Anemia Status: Acute (2) Dehydration Status: Acute (3) STEMI (ST elevation myocardial infarction) Status: Acute (4) Weakness Status: Acute Surgical Problems: (1) S/P cholecystectomy Status: Chronic Review of Systems Constitutional: + fatigue, + weakness Respiratory: No cough, No shortness of breath, No sputum Cardiac: No chest pain Abdomen: No diarrhea, No nausea, No pain, No vomiting Medications Current Inpatient Medications Medications (Trade) Dose Ordered Sig/Yudelka Route Start Time Stop Time Status Last Admin Dose Admin Acetaminophen (Tylenol Tab) 650 mg Q4H PRN PO 05/02/16 21:00 06/01/16 20:59 Ondansetron HCl (Zofran Inj) 4 mg Q6H PRN IV 05/02/16 21:00 06/01/16 20:59 Insulin Aspart (novoLOG ASPART) SLIDING SCALE If C... ACHS SC 05/03/16 06:30 06/02/16 06:59 05/05/16 13:04 1 UNITS Glucose (Glucose 40% Gel) 15-30 GRAMS 15 GRAMS... UD PRN PO 05/02/16 21:15 06/01/16 21:14 Glucose (Glucose Chew Tab) 4-8 Tablets 4 Tabl... UD PRN PO 05/02/16 21:15 06/01/16 21:14 Dextrose (Dextrose 50% 50ML Syringe) 25-50ML OF 50% DW IV FOR... UD PRN IV 05/02/16 21:15 06/01/16 21:14 Glucagon (Glucagon Inj) 1 mg UD PRN SQ 05/02/16 21:15 06/01/16 21:14 Aspirin (Ecotrin Tab) 81 mg QAM PO 05/03/16 08:00 06/02/16 08:59 05/05/16 08:22 81 MG Atorvastatin Calcium (Lipitor Tab) 80 mg QAM PO 05/03/16 08:00 06/02/16 08:59 05/05/16 08:22 80 MG Clopidogrel Bisulfate (plAVix TAB) 75 mg QAM PO 05/03/16 08:00 06/02/16 08:59 05/05/16 08:22 75 MG Lisinopril (Zestril Tab) 5 mg QAM PO 05/03/16 08:00 06/02/16 08:59 05/05/16 08:22 5 MG Multivitamins (Multivitamin Tab) 1 tab QAM PO 05/03/16 08:00 06/02/16 08:59 05/05/16 08:23 1 TAB Nitroglycerin (Nitrostat Tab) 0.4 mg UD PRN SL 05/02/16 21:15 06/01/16 21:14 Ferrous Sulfate (Feosol Tab) 325 mg DAILY PO 05/03/16 08:00 06/02/16 07:59 05/05/16 08:22 325 MG Insulin Glargine (Lantus Solostar Pen) 10 unit QAM SC 05/03/16 08:00 06/02/16 07:59 05/05/16 08:31 10 UNIT Objective Vital Signs Date Time Temp Pulse Resp B/P Pulse Ox O2 Delivery O2 Flow Rate FiO2 05/05/16 07:14 36.8 82 18 142/74 95 Room Air 05/05/16 00:00 Room Air 05/04/16 23:05 36.7 75 18 170/74 97 Room Air 05/04/16 16:41 Room Air 05/04/16 14:52 36.4 73 20 148/61 98 Room Air Physical Exam General Appearance: no apparent distress Respiratory/Chest: lungs clear, normal breath sounds, no respiratory distress, no accessory muscle use Cardiovascular: regular rate, rhythm, no edema, no murmur Extremities: normal inspection, no pedal edema Neurologic/Psychiatric: no motor/sensory deficits, alert, normal mood/affect Laboratory Results Last 24 Hours Test 05/04/16 16:22 05/04/16 20:27 05/05/16 07:22 05/05/16 07:37 Bedside Glucose 167 mg/dl 132 mg/dl 159 mg/dl White Blood Count 3.90 K/uL Red Blood Count 2.83 M/uL Hemoglobin 8.7 g/dL Hematocrit 27.4 % Mean Corpuscular Volume 96.8 fL Mean Corpuscular Hemoglobin 30.7 pg Mean Corpuscular Hemoglobin Concent 31.8 g/dl RDW Standard Deviation 56.9 fL RDW Coefficient of Variation 16.0 % Platelet Count 326 K/uL Mean Platelet Volume 9.3 fL Sodium Level 138 mmol/L Potassium Level 3.7 mmol/L Chloride Level 104 mmol/L Carbon Dioxide Level 24 mmol/L Anion Gap 10.0 mmol/L Blood Urea Nitrogen 11 mg/dl Creatinine 0.89 mg/dl Est Creatinine Clear Calc Drug Dose 59.4 ml/min Estimated GFR () 91.6 Estimated GFR (Non- 79.1 BUN/Creatinine Ratio 12.4 Random Glucose 175 mg/dl Calcium Level 8.4 mg/dl Magnesium Level 2.4 mg/dl Test 05/05/16 11:32 Bedside Glucose 113 mg/dl Assessment and Plan This is an 85 year old male with PMH of CAD s/p stents, HTN, DM2, HLD presents with weakness one week after cholecystectomy Generalized Weakness 05/05 * PT/OT * plan [facility] vs. home with home health * would benefit from rehab 05/04 * ambulating with walker * PT/OT pending * discharge planning pending 05/03 * functional decline * possibly related to anemia * no other symptoms to note * April 21 - had cholecystectomy - no abdominal pain, no GI bleeding, no diarrhea noted * stop IVFs, encourage PO intake * PT/OT * monitor H/H - may need to transfuse if Hgb does not rise about 8 and weakness persists * discharge planning evaluation Anemia 05/04 * will type/cross two units * hold transfusion for now 05/03 * in the post-operative setting * monitor H/H, transfuse PRN CAD s/p stents * no chest pain, no shortness of breath * continue aspirin, Plavix, statin, NONI-I DM2 * hold oral agents * insulin sliding scale * Lantus 10 units HTN * blood pressure stable * continue NONI-I DVT ppx * SCDs FULL CODE
[2016-05-05 15:00] VITALS: BP 123/74; PULSE 63; TEMP 36.6; O2SAT 94
[2016-05-05 23:36] VITALS: BP 167/78; PULSE 60; TEMP 36.7; O2SAT 98
[2016-05-06 08:00] VITALS: BP 104/56; PULSE 74; TEMP 36.8; O2SAT 98
[2016-05-06 08:08] LABS: HEMATOCRIT 26.4 % (42-52); MEAN CELL VOLUME 96.7 fL (80-100); MEAN CORPUSCULAR HEMOGLOBIN 30.4 pg (25-34); MEAN CORPUSCULAR HGB CONC 31.4 g/dl (32-36); MEAN PLATELET VOLUME 8.9 fL (7.4-10.4); PLATELET COUNT 304 K/uL (130-400); RED BLOOD COUNT 2.73 M/uL (4.7-6.1); WHITE BLOOD COUNT 4.14 K/uL (4.8-10.8)
[2016-05-06 08:43] LABS: BUN/CREATININE RATIO 13.9 (10-20); CALCIUM 8.7 mg/dl (8.5-10.1); CREATININE 0.8 mg/dl (0.60-1.40); POTASSIUM 3.8 mmol/L (3.5-5.1)
[2016-05-06 08:53] LABS: THYROID STIMULATING HORMONE 1.6 uIu/ml (0.300-4.500)
[2016-05-06] MEDS: INSULIN ASPART 100 UNITS/ML 3 ML PEN SC SCH ×4 (09:06→20:32)
[2016-05-06] MEDS: INSULIN GLARGINE SOLOSTAR 100 UNITS/ML 3 ML PEN SC SCH (09:07)
[2016-05-06] MEDS: ASPIRIN 81 MG ECTAB PO SCH (09:52)
[2016-05-06] MEDS: FERROUS SULFATE 325 MG TAB PO SCH (09:52)
[2016-05-06] MEDS: MULTIVITAMIN TAB PO SCH (09:53)
[2016-05-06] MEDS: ATORVASTATIN 40 MG TAB PO SCH (09:53)
[2016-05-06] MEDS: CLOPIDOGREL BISULFATE 75 MG TAB PO SCH (09:53)
[2016-05-06] MEDS: LISINOPRIL 5 MG TAB PO SCH (09:54)
--- NOTE | 2016-05-06 14:52 | Progress Note ---
Internal Med Progress Note Date of Service: May 06, 2016. Provider Documentation: SUBJECTIVE: Patient is alert/Awake and is lying comfortably in his bed. answers questions well. No SOB. Appetite has been improving.Has been able to walk in the hallway with walker. No other new change or complaint. OBJECTIVE: Vital Signs-as noted below Examination: General Appearance: Alert/Awake and is in no apparent distress Head: Normocephalic. ENT: Ears, Nose & Throat are normal looking Neck: Supple, Midline trachea, No JVD. Respiratory/Chest: lungs clear, normal breath sounds, no respiratory distress, no accessory muscle use Cardiovascular: regular rate, rhythm, no edema, no murmur Extremities: normal inspection, no pedal edema Neurologic/Psychiatric: no motor/sensory deficits, alert, normal mood/affect Lab data as noted below. ASSESSMENT & PLAN: Generalized Weakness: Clinically much better and improved. -Tolerating oral intake. -Ambulating with the help of walker. -Awaiting insurance auth for transfer to rehab. Anemia: H/H is stable. -B12/Folate levels are normal -Check Iron studies. CAD s/p stents: Stable. No cardiac symptoms. -Continue aspirin, Plavix, statin, NONI-I Diabetes Type II: Holding oral agents -Continue Lantus and as per Sliding scale. Hypertension: BP has been stable. -Continue NONI-I DVT Prophylaxis: SCDs Code Status: FULL CODE Disposition: Discharge once is clinically stable. Vital Signs: Date Time Temp Pulse Resp B/P Pulse Ox O2 Delivery O2 Flow Rate FiO2 05/06/16 10:24 Room Air 05/06/16 08:00 36.8 74 16 104/56 98 Room Air 05/06/16 08:00 Room Air 05/06/16 00:00 Room Air 05/05/16 23:36 36.7 60 16 167/78 98 Room Air 05/05/16 16:51 Room Air 05/05/16 15:00 36.6 63 20 123/74 94 Room Air Lab Results: Results Past 24 Hours Test 05/05/16 16:50 05/05/16 20:09 05/06/16 07:42 05/06/16 07:50 Range/Units Bedside Glucose 152 109 114 70-99 mg/dl White Blood Count 4.14 4.8-10.8 K/uL Red Blood Count 2.73 4.7-6.1 M/uL Hemoglobin 8.3 14.0-18.0 g/dL Hematocrit 26.4 42-52 % Mean Corpuscular Volume 96.7 80-100 fL Mean Corpuscular Hemoglobin 30.4 25-34 pg Mean Corpuscular Hemoglobin Concent 31.4 32-36 g/dl RDW Standard Deviation 56.7 36.4-46.3 fL RDW Coefficient of Variation 16.1 11.5-14.5 % Platelet Count 304 130-400 K/uL Mean Platelet Volume 8.9 7.4-10.4 fL Sodium Level 140 136-145 mmol/L Potassium Level 3.8 3.5-5.1 mmol/L Chloride Level 104 98-107 mmol/L Carbon Dioxide Level 24 21-32 mmol/L Anion Gap 12.0 3-11 mmol/L Blood Urea Nitrogen 11 7-18 mg/dl Creatinine 0.80 0.60-1.40 mg/dl Est Creatinine Clear Calc Drug Dose 66.0 ml/min Estimated GFR () 95.7 Estimated GFR (Non- 82.6 BUN/Creatinine Ratio 13.9 10-20 Random Glucose 113 70-99 mg/dl Calcium Level 8.7 8.5-10.1 mg/dl Vitamin B12 Level 746 211-911 pg/mL Folate 14.24 >5.38 ng/mL Thyroid Stimulating Hormone (TSH) 1.600 0.300-4.500 uIu/ml Test 05/06/16 11:31 Range/Units Bedside Glucose 156 70-99 mg/dl
[2016-05-06 15:10] VITALS: BP 123/61; PULSE 83; TEMP 36.8; O2SAT 95
[2016-05-07 00:13] VITALS: BP 150/62; PULSE 66; TEMP 36.9; O2SAT 98
[2016-05-07 06:52] VITALS: BP 127/62; PULSE 58; TEMP 36.6; O2SAT 98
[2016-05-07 07:42] LABS: BASO % 0.3 %; BASO ABS # 0.01 K/uL (0-0.2); EOS % 2.2 %; HEMATOCRIT 26.2 % (42-52); IG% 0.8 %; LYMPH % 24.3 %; LYMPH ABS # 0.87 K/uL (1.2-3.4); MEAN CELL VOLUME 97.4 fL (80-100); MEAN CORPUSCULAR HEMOGLOBIN 30.5 pg (25-34); MEAN CORPUSCULAR HGB CONC 31.3 g/dl (32-36); MEAN PLATELET VOLUME 9.1 fL (7.4-10.4); MONO % 8.1 %; NEUT % 64.3 %; PLATELET COUNT 275 K/uL (130-400); RED BLOOD COUNT 2.69 M/uL (4.7-6.1); WHITE BLOOD COUNT 3.58 K/uL (4.8-10.8)
[2016-05-07 08:00] VITALS: O2SAT 98
[2016-05-07 08:15] LABS: COMPLETE YES
[2016-05-07 08:17] LABS: BUN/CREATININE RATIO 14.1 (10-20); CALCIUM 8.5 mg/dl (8.5-10.1); CREATININE 0.92 mg/dl (0.60-1.40); POTASSIUM 3.9 mmol/L (3.5-5.1)
[2016-05-07] MEDS: FERROUS SULFATE 325 MG TAB PO SCH (09:45)
[2016-05-07] MEDS: INSULIN ASPART 100 UNITS/ML 3 ML PEN SC SCH ×2 (09:45→13:12)
[2016-05-07] MEDS: CLOPIDOGREL BISULFATE 75 MG TAB PO SCH (09:45)
[2016-05-07] MEDS: ATORVASTATIN 40 MG TAB PO SCH (09:46)
[2016-05-07] MEDS: ASPIRIN 81 MG ECTAB PO SCH (09:46)
[2016-05-07] MEDS: MULTIVITAMIN TAB PO SCH (09:46)
[2016-05-07] MEDS: LISINOPRIL 5 MG TAB PO SCH (09:47)
[2016-05-07] MEDS: INSULIN GLARGINE SOLOSTAR 100 UNITS/ML 3 ML PEN SC SCH (09:57)
[2016-05-07] MEDS ORDERED: IRON SUCROSE INJ 100 MG in SODIUM CHLORIDE 0.9% 100ML 100 ML IV SCH (10:00)
[2016-05-07 15:32] VITALS: BP 127/62; PULSE 58; TEMP 36.6; O2SAT 98
--- NOTE | 2016-05-07 15:40 | Progress Note ---
Internal Med Progress Note Date of Service: May 07, 2016. Provider Documentation: SUBJECTIVE: Patient is alert/Awake and is lying comfortably in his bed. answers questions well. No SOB. Appetite has been improving.Has been able to walk in the hallway with walker.Appetite is improving. No other new change or complaint. OBJECTIVE: Vital Signs-as noted below Examination: General Appearance: Alert/Awake and is in no apparent distress Head: Normocephalic. ENT: Ears, Nose & Throat are normal looking Neck: Supple, Midline trachea, No JVD. Respiratory/Chest: lungs clear, normal breath sounds, no respiratory distress, no accessory muscle use Cardiovascular: regular rate, rhythm, no edema, no murmur Extremities: normal inspection, no pedal edema Neurologic/Psychiatric: no motor/sensory deficits, alert, normal mood/affect Lab data as noted below. ASSESSMENT & PLAN: Generalized Weakness: Clinically much better and improved. -Tolerating oral intake. -Ambulating with the help of walker. -Awaiting insurance auth for transfer to rehab. Anemia: H/H is stable. -B12/Folate levels are normal -Iron studies show bit low Iron level so ordered one dose of Venofer. CAD s/p stents: Stable. No cardiac symptoms. -Continue aspirin, Plavix, statin, NONI-I Diabetes Type II: Holding oral agents -Continue Lantus and as per Sliding scale. Hypertension: BP has been stable. -Continue NONI-I DVT Prophylaxis: SCDs Code Status: FULL CODE Disposition: Discharge home later today with home health services and aid. PT/OT as outpatient. Follow up with PCP on 05/15/2016 @ 12.30 Vital Signs: Date Time Temp Pulse Resp B/P Pulse Ox O2 Delivery O2 Flow Rate FiO2 05/07/16 08:00 98 Room Air 05/07/16 06:52 36.6 58 18 127/62 98 Room Air 05/07/16 00:13 36.9 66 18 150/62 98 Room Air 05/07/16 00:00 Room Air 05/06/16 20:00 Room Air 05/06/16 16:00 Room Air Lab Results: Results Past 24 Hours Test 05/06/16 16:39 05/06/16 20:07 05/07/16 07:10 05/07/16 07:31 Range/Units Bedside Glucose 101 124 116 70-99 mg/dl White Blood Count 3.58 4.8-10.8 K/uL Red Blood Count 2.69 4.7-6.1 M/uL Hemoglobin 8.2 14.0-18.0 g/dL Hematocrit 26.2 42-52 % Mean Corpuscular Volume 97.4 80-100 fL Mean Corpuscular Hemoglobin 30.5 25-34 pg Mean Corpuscular Hemoglobin Concent 31.3 32-36 g/dl Platelet Count 275 130-400 K/uL Mean Platelet Volume 9.1 7.4-10.4 fL Neutrophils (%) (Auto) 64.3 % Lymphocytes (%) (Auto) 24.3 % Monocytes (%) (Auto) 8.1 % Eosinophils (%) (Auto) 2.2 % Basophils (%) (Auto) 0.3 % Neutrophils # (Auto) 2.30 1.4-6.5 K/uL Lymphocytes # (Auto) 0.87 1.2-3.4 K/uL Monocytes # (Auto) 0.29 0.11-0.59 K/uL Eosinophils # (Auto) 0.08 0-0.5 K/uL Basophils # (Auto) 0.01 0-0.2 K/uL RDW Standard Deviation 58.0 36.4-46.3 fL RDW Coefficient of Variation 16.6 11.5-14.5 % Immature Granulocyte % (Auto) 0.8 % Immature Granulocyte # (Auto) 0.03 0.00-0.02 K/uL Red Blood Cell Morphology Unremarkable Sodium Level 141 136-145 mmol/L Potassium Level 3.9 3.5-5.1 mmol/L Chloride Level 105 98-107 mmol/L Carbon Dioxide Level 24 21-32 mmol/L Anion Gap 12.0 3-11 mmol/L Blood Urea Nitrogen 13 7-18 mg/dl Creatinine 0.92 0.60-1.40 mg/dl Est Creatinine Clear Calc Drug Dose 57.4 ml/min Estimated GFR () 88.8 Estimated GFR (Non- 76.6 BUN/Creatinine Ratio 14.1 10-20 Random Glucose 110 70-99 mg/dl Calcium Level 8.5 8.5-10.1 mg/dl Iron Level 48 35-175 mcg/dl Total Iron Binding Capacity 184 250-450 mcg/dl Test 05/07/16 11:56 Range/Units Bedside Glucose 142 70-99 mg/dl
--- NOTE | 2016-05-07 15:47 | Discharge Instructions ---
Discharge Instructions Admission Reason for Admission: Weakness Discharge Discharge Diagnosis / Problem: Generalized Weakness Discharge Goals Goal(s): Decrease discomfort, Improve function, Increase independence, Improve disease control, Improve nutritional status, Learn about illness, Diagnostic testing, Therapeutic intervention Activity Recommendations Activity Limitations: resume your previous activity Exercise/Sports Limitations: as tolerated Shower/Bathe: no limitations Driving or Machine Use: resume 1 day after discharge . Current Hospital Diet Patient's current hospital diet: Diabetes Type 2 Diet Discharge Diet Recommended Diet: Diabetes Type 2 Diet (Fat Free Diet) Pending Studies Studies pending at discharge: no Laboratory Results Hemoglobin A1c Test 05/04/16 05:40 Range/Units Estimated Average Glucose 111 mg/dl Hemoglobin A1c 5.5 4.5-5.6 % Medical Emergencies . Who to Call and When: Medical Emergencies: If at any time you feel your situation is an emergency, please call 911 immediately. . Non-Emergent Contact Non-Emergency issues call your: Primary Care Provider . . "Provider Documentation" section prepared by Joce Hernandez. VTE Core Measure Inpt VTE Proph given/why not?: SCD's
--- NOTE | 2016-05-07 17:11 | Discharge Summary ---
Discharge Summary Admission Date: May 02, 2016 at 21:02 Discharge Date: May 07, 2016 Discharge Disposition: Home with services Principal Diagnosis: Generalized Weakness Secondary Diagnoses/Problems: History CAD Chronic Anemia Hypertension Diabetes Type II Procedures: CHEST ONE VIEW PORTABLE FINDINGS: There is mild respiratory motion artifact. The heart is the upper limits of normal in size. There is no failure. There is no focal pulmonary consolidation. There is minor basilar atelectasis. There is no significant pleural fluid. No free air is visualized.[ IMPRESSION: No active disease in the chest. Vaccinations: NONE Consultations: NONE Pending Studies/Follow-Up: NONE Medication Reconciliation Continued Medications: Aspirin (Aspirin Ec) 81 Mg Tab 81 MG PO QAM Atorvastatin (Lipitor) 80 Mg Tab 80 MG PO QAM, TAB Cholecalciferol (Vitamin D) 1,000 Unit Tab 1000 UNIT PO QAM Clopidogrel Bisulfate (Plavix) 75 Mg Tab 75 MG PO QAM, TAB Ferrous Sulfate (Feosol) 65 Mg Tab 65 MG PO DAILY Insulin Glargine (Lantus Solostar) 100 Unit/Ml Inj 14 UNITS SC QAM IF BLOOD SUGAR IS 150 OR HIGHER TAKE HALF AM DOSE Lisinopril (Zestril) 5 Mg Tab 5 MG PO QAM, TAB Multivitamin (Multivitamin) Tab 1 TAB PO QAM, TAB Nitroglycerin (Nitrostat) 0.4 Mg Tab 1 TAB SL UD PRN for Chest Pain, TAB PLACE ONE TABLET UNDER THE TONGUE Admission Information HPI (per Admitting provider): Patient is a 85 Yr old male with PMH of CAD s/p stents, HTN, HLP, DM II who was recently discharged 2 weeks ago after having cholecystectomy presents with history of worsening generalized weakness, decreased appetite since last 4 days. Patient denies any fever, chills, chest pain, SOB, cough, pain or discharge from surgical site, dizziness, headache. Patient has seen his surgeon 2 days ago who recommended him to rehab but he could not be scheduled secondary to insurance issues. Also he contacted his PCP today who recommended that he get evaluated at ED. Physical Exam (per Admitting): General Appearance: WD/WN, no apparent distress Head: normocephalic, atraumatic Eyes: normal inspection, PERRL, EOMI, sclerae normal ENT: normal ENT inspection, hearing grossly normal Neck: supple, no adenopathy, trachea midline Respiratory/Chest: chest non-tender, lungs clear, normal breath sounds, no respiratory distress Cardiovascular: regular rate, rhythm, no edema, no JVD, no murmur Abdomen/GI: normal bowel sounds, non tender, soft, no organomegaly, + pertinent finding (Healing surgical scrs without erythema, discharge) Back: normal inspection, no CVA tenderness Extremities/Musculoskelatal: normal inspection, no calf tenderness, no pedal edema, non-tender Neurologic/Psych: c architect II-XII nml as tested, no motor/sensory deficits, alert , normal mood/affect, oriented x 3 Skin: normal color, warm/dry Lymphatic: no adenopathy Hospital Course Generalized Weakness: Clinically much better and improved. -Tolerating oral intake. -Ambulating with the help of walker. -Awaiting insurance auth for transfer to rehab. Anemia: H/H is stable. -B12/Folate levels are normal -Iron studies show bit low Iron level so ordered one dose of Venofer. CAD s/p stents: Stable. No cardiac symptoms. -Continue aspirin, Plavix, statin, NONI-I Diabetes Type II: Holding oral agents -Continue Lantus and as per Sliding scale. Hypertension: BP has been stable. -Continue NONI-I DVT Prophylaxis: SCDs Code Status: FULL CODE Disposition: Discharge home later today with home health services and aid. PT/OT as outpatient. Follow up with PCP on 05/15/2016 @ 12.30 Total time spent on discharge = 40 minutes This includes examination of the patient, discharge planning, medication reconciliation, and communication with other providers. Discharge Instructions Discharge Goals Goal(s): Decrease discomfort, Improve function, Increase independence, Improve disease control, Improve nutritional status, Learn about illness, Diagnostic testing, Therapeutic intervention Activity Recommendations Activity Limitations: resume your previous activity Exercise/Sports Limitations: as tolerated Shower/Bathe: no limitations Driving or Machine Use: resume 1 day after discharge . Current Hospital Diet Patient's current hospital diet: Diabetes Type 2 Diet Discharge Diet Recommended Diet: Diabetes Type 2 Diet (Fat Free Diet) Additional Copies To Get Henderson M.D.
== END 2016-05-07 16:32 | disposition home health service (06) | DRG 948 ==
LOC: ENRESERVTM → ENRESERVDT → C.EDB 16:26 → C.MS4W 21:02
PROVIDERS: ADMIT Internal Medicine; ATTEND Emergency Medicine
DX: R53.1 Weakness (principal); D64.9 Anemia, unspecified; I25.10 Atherosclerotic heart disease of native coronary artery without angina pectoris; E11.9 Type 2 diabetes mellitus without complications; I10 Essential (primary) hypertension; E78.5 Hyperlipidemia, unspecified; Z90.49 Acquired absence of other specified parts of digestive tract; Z98.61 Coronary angioplasty status; Z85.46 Personal history of malignant neoplasm of prostate; Z79.02 Long term (current) use of antithrombotics/antiplatelets; Z79.4 Long term (current) use of insulin; Z79.82 Long term (current) use of aspirin; Z79.899 Other long term (current) drug therapy

== ENCOUNTER → 2017-01-30 | Outpatient (CLI) | payer OTHER ==
[~2017-01-30] MED LIST changes: +FERR1TAB24 PO; -IRON TAB PO; -OXYC-57 PO
[2017-01-30 15:06] LABS: CHOLESTEROL/HDL RATIO 2.2; PROSTATE SPECIFIC ANTIGEN 0.893 ng/ml (0.000-4.000)
== END | disposition home or self-care (01) ==
LOC: C.LAB 13:04
PROVIDERS: ATTEND Urology
DX: C61 Malignant neoplasm of prostate (principal); I25.10 Atherosclerotic heart disease of native coronary artery without angina pectoris

== ENCOUNTER 2017-06-20 21:01 | Inpatient (IN) | payer OTHER ==
[~2017-06-20] VITALS: Ht 165.1 cm; Wt 83.2 kg
[2017-06-20] MEDS ORDERED: SODIUM CHLORIDE 0.9% 1000ML 1,000 ML IV ONE (22:25)
[2017-06-20] MEDS ORDERED: ONDANSETRON INJ 2 MG/ML 2 ML VIAL IV STA (22:25)
[2017-06-20] MEDS ORDERED: ACETAMINOPHEN 500 MG TAB PO PRN (22:30)
[2017-06-20] MEDS ORDERED: HYDROmorphone INJ 0.5 MG/0.5 ML SYR IV PRN ×2 (22:30)
[2017-06-20 22:57] LABS: HEMATOCRIT 31.9 % (42-52); HEMOGLOBIN 10.3 g/dL (14.0-18.0); MEAN CELL VOLUME 101.9 fL (80-100); MEAN CORPUSCULAR HEMOGLOBIN 32.9 pg (25-34); MEAN CORPUSCULAR HGB CONC 32.3 g/dl (32-36); MEAN PLATELET VOLUME 9.6 fL (7.4-10.4); PLATELET COUNT 182 K/uL (130-400); RED CELL DISTRIBUTION WIDTH CV 13.6 % (11.5-14.5); WHITE BLOOD COUNT 16.26 K/uL (4.8-10.8)
[2017-06-20 23:09] LABS: PTT PATIENT 21.5 SECONDS (21.0-31.0)
[2017-06-20 23:13] LABS: BLOOD UREA NITROGEN 21 mg/dl (7-18); CARBON DIOXIDE 27 mmol/L (21-32); CREATININE 1.31 mg/dl (0.60-1.40); GLUCOSE 182 mg/dl (70-99); POTASSIUM 4.2 mmol/L (3.5-5.1); SODIUM 137 mmol/L (136-145)
[2017-06-20 23:15] LABS: BASO % 0.2 %; BASO ABS # 0.03 K/uL (0-0.2); EOS % 0.4 %; EOS ABS # 0.06 K/uL (0-0.5); IG# 0.04 K/uL (0.00-0.02); LYMPH % 8.2 %; LYMPH ABS # 1.33 K/uL (1.2-3.4); MONO % 4.7 %; MONO ABS # 0.76 K/uL (0.11-0.59); NEUT % 86.3 %; NEUT ABS # 14.04 K/uL (1.4-6.5)
[2017-06-20] MEDS ORDERED: SODIUM CHLORIDE 0.9% 1000ML 1,000 ML IV STA (23:40)
[2017-06-21] VITALS (15 sets, daily range): BP systolic 84–124; BP diastolic 50–94; PULSE 63–89; TEMP 36.2–37.4; O2SAT 91–97; Ht 165.1 cm; Wt 83.2 kg
[2017-06-21] MEDS ORDERED: GLC/500 PO (00:51)
[2017-06-21] MEDS ORDERED: MULT-506 PO (00:51)
[2017-06-21] MEDS ORDERED: CHOL1TAB42 PO (00:51)
[2017-06-21] MEDS ORDERED: SOD PHOSPHATE/SOD BIPHOSPHATE ENEMA 132 ML BTL PR PRN ×2 (01:15→21:15)
[2017-06-21] MEDS ORDERED: MAGNESIUM HYDROXIDE SUSP 30 ML UDC PO PRN ×2 (01:15→21:15)
[2017-06-21] MEDS ORDERED: ONDANSETRON INJ 2 MG/ML 2 ML VIAL IV PRN ×4 (01:15→21:15)
[2017-06-21] MEDS ORDERED: POLYETHYLENE (MIRALAX) 17 GM PACK PO PRN (01:15)
[2017-06-21] MEDS ORDERED: BISACODYL 10 MG SUPP PR PRN ×2 (01:15→21:15)
[2017-06-21] MEDS ORDERED: NALOXONE HCL 0.4 MG/1 ML VIAL/CARP IV PRN ×2 (01:15→17:30)
[2017-06-21] MEDS ORDERED: OXYCODONE HCL IR 5 MG TAB (IMMEDIATE RELEASE) PO PRN ×2 (01:15→21:15)
--- NOTE | 2017-06-21 01:23 | EMERGENCY ROOM VISIT NOTE ---
History Report prepared by Ivette: Sung Patel Under the Supervision of: Dr. Garrett Rob M.D. First contact with patient: 21:25 Chief Complaint: FALL Stated Complaint: FALL, L THIGH PAIN History of Present Illness The patient is an 86 year old male with a history of diabetes and prostate cancer who presents to the Emergency Room via EMS with complaints of a sudden mechanical fall that occurred earlier tonight. The patient states that he was carrying something while walking up the stairs, and lost his balance because a cat ran past him, and he fell on the steps. He notes that he did hit his head on the steps. The patient states that he has had persistent left knee pain that he rates as a 5 out of 10 in severity ever since the fall. He says that he hit his right elbow as well and has an abrasion there. The patient says that his left knee pain is nonradiating, but he was complaining earlier of left hip pain. He is on Plavix and Aspirin. Per the patient's family, the patient has never broken any bones before. Pt and family denies LOC, headache, visual changes, neck pain, chest pain, breathing difficulties, nausea, vomiting, abdominal pain, back pain, numbness, weakness, open wounds, active bleeding, or other complaints. Source of History: patient, family, nursing staff Onset: Earlier tonight Position: other (global) Symptom Intensity: did hit head on fall Quality: other (mechanical fall) Timing: other (sudden) Note: Associated symptoms: Left knee pain. Right elbow abrasion. Review of Systems See HPI for pertinent positives and negatives. A total of ten systems were reviewed and were otherwise negative. Past Medical & Surgical Medical Problems: (1) Benign prostatic hypertrophy (2) CAD (coronary artery disease) (3) DM2 (diabetes mellitus, type 2) (4) HTN (hypertension) (5) Prostate cancer Surgical Problems: (1) History of carpal tunnel repair (2) S/P cholecystectomy (3) Stented coronary artery Family History FH: cancer Social History Smoking Status: Never Smoker Alcohol Use: none Drug Use: none Marital Status: Housing Status: lives with family Occupation Status: retired Current/Historical Medications Scheduled Aspirin (Aspirin Ec), 81 MG PO QAM Atorvastatin (Lipitor), 80 MG PO QAM Cholecalciferol (Vitamin D), 5,000 UNIT PO DAILY Clopidogrel Bisulfate (Plavix), 75 MG PO QAM Lisinopril (Zestril), 5 MG PO QAM Metformin Hcl (Glucophage), 500 MG PO BID Multivitamin (Multivitamin), 1 TAB PO DAILY Scheduled PRN Nitroglycerin (Nitrostat), 1 TAB SL UD PRN for Chest Pain Allergies Coded Allergies: Pea (Verified Allergy, Severe, FRESH/RAW GREEN PEAS-THROAT SHUTDOWN, ) Physical Exam Vital Signs Date Time Temp Pulse Resp B/P (MAP) Pulse Ox O2 Delivery O2 Flow Rate FiO2 06/21/17 01:12 66 106/56 96 Room Air 06/21/17 01:09 66 06/21/17 00:50 69 16 117/43 06/21/17 00:36 68 18 117/43 98 Room Air 06/21/17 00:29 68 16 101/50 99 Room Air 06/21/17 00:24 64 77/46 06/21/17 00:12 62 19 77/46 96 Room Air 06/20/17 23:44 55 18 72/33 94 Room Air 06/20/17 23:37 53 18 73/34 93 Room Air 06/20/17 23:34 52 71/32 95 Room Air 06/20/17 23:33 56 16 70/35 94 Room Air 06/20/17 22:52 55 16 130/53 94 Room Air 06/20/17 22:23 53 18 121/53 98 Room Air 06/20/17 21:22 55 06/20/17 21:06 36.8 54 16 128/44 97 Room Air Physical Exam GENERAL: Awake, alert, uncomfortable-appearing, in no acute distress HENT: Normocephalic, atraumatic. Oropharynx unremarkable. EYES: Normal conjunctiva. Sclera non-icteric. NECK: Nontender and supple. No nuchal rigidity. FROM. No masses. RESPIRATORY: Clear to auscultation. No wheezes. CARDIAC: Normal rate. Normal rhythm. No murmurs. No rubs. Extremities warm and well perfused. Pulses equal. No JVD. GI: Soft, non-distended. No tenderness to palpation. No rebound or guarding. No masses. RECTAL: Deferred. MUSCULOSKELETAL: Chest examination reveals no tenderness. No joint edema. LOWER EXTREMITIES: Shortened externally rotated left leg. Calves are equal size bilaterally and non-tender. No edema. No discoloration. NEURO: Normal sensorium. No sensory or motor deficits noted. SKIN: No rash or jaundice noted. Medical Decision & Procedures ER Provider Diagnostic Interpretation: Radiology results as stated below per my review and radiologist interpretation: CT HEAD: Compared with 03/06/16. No acute intracranial abnormality. No significant change from prior study. Radiologist: Brenna Nagy MD Imaging studies: Chest x-ray. Findings: A chest x-ray was performed and revealed no pneumothorax, effusion, infiltrate, pulmonary edema, free air under the diaphragm, or wide mediastinum. Impression: No acute disease. X-ray imaging of the left hip reveals a spiral fracture of the proximal femur just inferior to the lesser trochanter. No evidence of dislocation. Laboratory Results 06/20/17 22:41 Red Blood Count 3.13, Mean Corpuscular Volume 101.9, Mean Corpuscular Hemoglobin 32.9, Mean Corpuscular Hemoglobin Concent 32.3, Mean Platelet Volume 9.6, Neutrophils (%) (Auto) 86.3, Lymphocytes (%) (Auto) 8.2, Monocytes (%) ( Auto) 4.7, Eosinophils (%) (Auto) 0.4, Basophils (%) (Auto) 0.2, Neutrophils # ( Auto) 14.04, Lymphocytes # (Auto) 1.33, Monocytes # (Auto) 0.76, Eosinophils # ( Auto) 0.06, Basophils # (Auto) 0.03 06/20/17 22:41 Test 06/20/17 22:41 06/20/17 23:59 White Blood Count 16.26 K/uL (4.8-10.8) Red Blood Count 3.13 M/uL (4.7-6.1) Hemoglobin 10.3 g/dL (14.0-18.0) Hematocrit 31.9 % (42-52) Mean Corpuscular Volume 101.9 fL (80-100) Mean Corpuscular Hemoglobin 32.9 pg (25-34) Mean Corpuscular Hemoglobin Concent 32.3 g/dl (32-36) Platelet Count 182 K/uL (130-400) Mean Platelet Volume 9.6 fL (7.4-10.4) Neutrophils (%) (Auto) 86.3 % Lymphocytes (%) (Auto) 8.2 % Monocytes (%) (Auto) 4.7 % Eosinophils (%) (Auto) 0.4 % Basophils (%) (Auto) 0.2 % Neutrophils # (Auto) 14.04 K/uL (1.4-6.5) Lymphocytes # (Auto) 1.33 K/uL (1.2-3.4) Monocytes # (Auto) 0.76 K/uL (0.11-0.59) Eosinophils # (Auto) 0.06 K/uL (0-0.5) Basophils # (Auto) 0.03 K/uL (0-0.2) RDW Standard Deviation 51.0 fL (36.4-46.3) RDW Coefficient of Variation 13.6 % (11.5-14.5) Immature Granulocyte % (Auto) 0.2 % Immature Granulocyte # (Auto) 0.04 K/uL (0.00-0.02) Prothrombin Time 11.0 SECONDS (9.0-12.0) Prothromb Time International Ratio 1.0 (0.9-1.1) Activated Partial Thromboplast Time 21.5 SECONDS (21.0-31.0) Partial Thromboplastin Ratio 0.8 Anion Gap 6.0 mmol/L (3-11) Est Creatinine Clear Calc Drug Dose 41.4 ml/min Estimated GFR () 57.5 Estimated GFR (Non- 49.6 BUN/Creatinine Ratio 16.3 (10-20) Calcium Level 9.0 mg/dl (8.5-10.1) Troponin I < 0.015 ng/ml (0-0.045) Urine Color YELLOW Urine Appearance CLEAR (CLEAR) Urine pH 5.0 (4.5-7.5) Urine Specific [place] 1.013 (1.000-1.030) Urine Protein NEG (NEG) Urine Glucose (UA) NEG (NEG) Urine Ketones NEG (NEG) Urine Occult Blood NEG (NEG) Urine Nitrite NEG (NEG) Urine Bilirubin NEG (NEG) Urine Urobilinogen NEG (NEG) Urine Leukocyte Esterase NEG (NEG) Laboratory results reviewed by me Medications Administered Medications (Trade) Dose Ordered Sig/Yudelka Route Start Time Stop Time Status Last Admin Dose Admin Sodium Chloride 1,000 ml @ 75 mls/hr [id number] ONCE IV 06/20/17 22:25 06/21/17 11:44 06/20/17 22:44 75 MLS/HR Hydromorphone HCl (Dilaudid Inj) 0.5 mg Q20M PRN IV 06/20/17 22:30 07/04/17 22:29 06/20/17 22:45 0.5 MG Ondansetron HCl (Zofran Inj) 4 mg NOW STAT IV 06/20/17 22:25 06/20/17 22:29 DC 06/20/17 22:44 4 MG Sodium Chloride 1,000 ml @ 999 mls/hr Q1H1M STAT IV 06/20/17 23:40 06/21/17 00:40 DC 06/20/17 23:40 999 MLS/HR ECG Per My Interpretation Indication: weakness, other (hypotension) Rate (beats per minute): 57 Rhythm: sinus bradycardia Findings: no acute ischemic change, no ectopy Change: 2nd ECG: Normal sinus rhythm at 61 bpm, nonspecific ST abnormality, no ectopy, normal intervals. Nonspecific ST is prominent now when compared to first ECG. ED Course 2150: The medical student, Odalis Sigala, evaluated the patient. 2216: The patient was evaluated in room B2. A complete history and physical exam was performed. 2225: Zofran Inj 4 mg IV, NSS 1000 ml @ 75 mls/hr IV. 2230: Dilaudid Inj 0.5 mg IV PRN, Dilaudid Inj 0.25 mg IV PRN, Tylenol Tab 1000 mg PO PRN. 2340: NSS 1000 ml @ 999 mls/hr IV. 2340: I discussed the patient with Dr. Gaby LI - he agrees with hospitalization, and he will consult with the hospitalist service. 2350: Upon reexamination, the patient's blood pressure was low so he will get a fluid bolus. We will do repeat labs and a repeat EKG. I discussed the test results and treatment plan with the patient and family. The patient will be evaluated for further management. 0000: I reevaluated the patient and his blood pressure is still low but is improving with IV fluids. 0025: I reevaluated the patient and he was updated. His hypotension has resolved , and he is more alert. He is denying any pain at the moment. 0035: I discussed the patient with Dr. Alejandro Valente hospitalist - she will evaluate the patient for further treatment. Medical Decision Prior records reviewed and summarized above. Triage Nursing notes reviewed and agree them. Additional history obtained from family. The patient's history was concerning for traumatic injury. Differential diagnosis: Etiologies such as fracture, dislocation, neurovascular compromise, compartment syndrome, soft tissue injury, as well as others were entertained. Physical examination: Consistent with an isolated hip injury. ER treatment provided: IV lock Zofran 4mg IV Normal saline hydration IV Dilaudid NPO Bedrest The patient had an episode of hypotension about 40-45 Minutes after receiving his Dilaudid. Normal saline bolus. On reassessment the patient felt better. Blood pressure improved. Diagnostics interpreted by me: ECG: Sinus bradycardia. No acute ischemic change. Repeat ECG did not reveal any significant change other than a nonspecific ST. The labs revealed an unremarkable chemistry panel. The CBC revealed a moderate leukocytosis and mild anemia. Repeat blood work after hydration secondary to his hypotension revealed a unremarkable chemistry profile however his hemoglobin did drop down to 8.5. The patient had a normal troponin. Urinalysis by catheter specimen was negative. Imaging studies: CT scan and Xrays as above. The patient has a left proximal humerus fracture femur fracture. He will need admission to the hospital. No significant head injury was found. He did have a period of hypotension after receiving Dilaudid. The patient did not have any respiratory distress or tachycardia. Consultation: A consultation was placed with Dr. Griffin of [facility] and he recommended admission to the hospitalist service. A consultation was made with Dr. Allen . The case was discussed and diagnostics were reviewed. The patient was evaluated in the ER for further treatment. Medication Reconcilliation Current Medication List: was personally reviewed by me Blood Pressure Screening Patient's blood pressure: Normal blood pressure Consults Time Called: [phone] Consulting Physician: Dr. Gaby LI Returned Call: [phone] discussed the patient with Dr. Gaby LI - he agrees with hospitalization, and he will consult with the hospitalist service. Additional Consults: Time Called: 0025 Consulted Physician: Dr. Alejandro Valente hospitalist Returned Call: [phone] Additional Comments: I discussed the patient with Dr. Alejandro cameron - she will evaluate the patient for further treatment. Impression Primary Impression: Fracture of proximal end of left femur Additional Impressions: Accidental fall Closed head injury Scribe Attestation The scribe's documentation has been prepared under my direction and personally reviewed by me in its entirety. I confirm that the note above accurately reflects all work, treatment, procedures, and medical decision making performed by me. Departure Information Dispostion Being Evaluated By Hospitalist Referrals No Doctor, Assigned (PCP) Patient Instructions My [facility] Problem Qualifiers
[2017-06-21 01:24] LABS: ISTAT CREATININE 1.4 mg/dl (0.6-1.3); ISTAT IONIZED CALCIUM 1.08 mmol/l (1.12-1.32); ISTAT POTASSIUM 4.3 mEq/L (3.3-5.0)
[2017-06-21] MEDS ORDERED: GLUCOSE 40% GEL 15 GM TUBE PO PRN (03:45)
[2017-06-21] MEDS ORDERED: DEXTROSE 50% 50 ML SYR IV PRN (03:45)
[2017-06-21] MEDS ORDERED: NITROGLYCERIN 0.4 MG SL PER TAB CHARGE SL PRN (03:45)
[2017-06-21] MEDS ORDERED: GLUCAGON FOR INJ 1 MG VIAL SQ PRN (03:45)
[2017-06-21] MEDS ORDERED: GLUCOSE 10 TABS/TUBE PO PRN (03:45)
--- NOTE | 2017-06-21 03:45 | History and Physical ---
History & Physical Date & Time of Service: Jun 21, 2017 at 03:37 Chief Complaint: Fall, L Thigh Pain Primary Care Physician: Get Henderson M.D. History of Present Illness Source: patient, family, clinic records, hospital records The patient is an 86-year-old male who presents with a left hip fracture after mechanical fall at home. The patient reports he was carrying something while walking up the stairs and lost his balance because a cat ran past him. He fell on the steps and notes hitting his head. He has had persistent left knee pain ever since that fall and states he hit his right elbow as well and has a number he is on Plavix and aspirin. He has had cardiac stents 2 years ago. Patient denies loss of consciousness, headache, visual changes, neck pain, chest pain, breathing difficulties, nausea, vomiting, abdominal pain, back pain, numbness, weakness, open wounds, active bleeding or other complaints. Daughter is at bedside and corroborates his story. The patient is functional and lives with his at home. In the last 6 months he denies any chest pain or shortness of breath episodes. His exercise tolerance is reported to be good, he can climb a flight of stairs without an issue typically. Past Medical/Surgical History Medical Problems: (1) Benign prostatic hypertrophy Status: Chronic (2) CAD (coronary artery disease) Permanent Comment: s/p stent placement Status: Chronic (3) DM2 (diabetes mellitus, type 2) Status: Chronic (4) HTN (hypertension) Status: Chronic (5) Prostate cancer Permanent Comment: Diagnosed with adenocarcinoma of the prostate in 11/2013. bone scan 12/06/13 was negative for metastasis. Ongoing treatment with Lupron injections. S/P radiation therapy completed on 06/08/2014. Status: Chronic Surgical Problems: (1) History of carpal tunnel repair Status: Resolved (2) S/P cholecystectomy Status: Chronic (3) Stented coronary artery Status: Resolved Family History FH: cancer Social History Smoking Status: Never Smoker Smokeless Tobacco Use: No Alcohol Use: none Drug Use: none Marital Status: Housing status: lives with significant other Occupational Status: retired Immunizations History of Influenza Vaccine: Yes Influenza Vaccine Date: Feb 12, 2016 History of Tetanus Vaccine?: Yes Tetanus Immunization Date: Sep 27, 2014 History of Pneumococcal: Yes Pneumococcal Date: Sep 27, 2014 History of Hepatitis B Vaccine: No Allergies Coded Allergies: Pea (Verified Allergy, Severe, FRESH/RAW GREEN PEAS-THROAT SHUTDOWN, ) Home Medications Scheduled Aspirin (Aspirin Ec), 81 MG PO QAM Atorvastatin (Lipitor), 80 MG PO QAM Cholecalciferol (Vitamin D), 5,000 UNIT PO DAILY Clopidogrel Bisulfate (Plavix), 75 MG PO QAM Lisinopril (Zestril), 5 MG PO QAM Metformin Hcl (Glucophage), 500 MG PO BID Multivitamin (Multivitamin), 1 TAB PO DAILY Scheduled PRN Nitroglycerin (Nitrostat), 1 TAB SL UD PRN for Chest Pain Review of Systems At least 10 systems were reviewed and negative except as indicated in HPI Physical Exam Vital Signs Date Time Temp Pulse Resp B/P (MAP) Pulse Ox O2 Delivery O2 Flow Rate FiO2 06/21/17 03:00 67 16 101/47 Room Air 06/21/17 01:12 66 106/56 96 Room Air 06/21/17 01:09 66 06/21/17 00:50 69 16 117/43 06/21/17 00:36 68 18 117/43 98 Room Air 06/21/17 00:29 68 16 101/50 99 Room Air 06/21/17 00:24 64 77/46 06/21/17 00:12 62 19 77/46 96 Room Air 06/20/17 23:44 55 18 72/33 94 Room Air 06/20/17 23:37 53 18 73/34 93 Room Air 06/20/17 23:34 52 71/32 95 Room Air 06/20/17 23:33 56 16 70/35 94 Room Air 06/20/17 22:52 55 16 130/53 94 Room Air 06/20/17 22:23 53 18 121/53 98 Room Air 06/20/17 21:22 55 06/20/17 21:06 36.8 54 16 128/44 97 Room Air General Appearance: WD/WN, no apparent distress Head: normocephalic, atraumatic Eyes: normal inspection, PERRL, sclerae normal ENT: pharynx normal, + pertinent finding (Mucous membranes moist) Neck: supple, no adenopathy, no JVD, trachea midline Respiratory/Chest: chest non-tender, lungs clear, normal breath sounds, no respiratory distress, no accessory muscle use Cardiovascular: regular rate, rhythm, no edema, no gallop, no JVD, no murmur, normal peripheral pulses Abdomen/GI: normal bowel sounds, non tender, soft, no organomegaly Extremities/Musculoskelatal: normal inspection, no calf tenderness, normal capillary refill, no pedal edema, normal range of motion Neurologic/Psych: yard caller II-XII nml as tested, no motor/sensory deficits, alert, normal mood/affect, oriented x 3 Skin: normal color, warm/dry, no rash Diagnostics Laboratory Results 06/20/17 22:41 Red Blood Count 3.13, Mean Corpuscular Volume 101.9, Mean Corpuscular Hemoglobin 32.9, Mean Corpuscular Hemoglobin Concent 32.3, Mean Platelet Volume 9.6, Neutrophils (%) (Auto) 86.3, Lymphocytes (%) (Auto) 8.2, Monocytes (%) ( Auto) 4.7, Eosinophils (%) (Auto) 0.4, Basophils (%) (Auto) 0.2, Neutrophils # ( Auto) 14.04, Lymphocytes # (Auto) 1.33, Monocytes # (Auto) 0.76, Eosinophils # ( Auto) 0.06, Basophils # (Auto) 0.03 06/20/17 22:41 Test 06/20/17 22:41 06/20/17 23:59 06/21/17 00:26 White Blood Count 16.26 K/uL (4.8-10.8) Red Blood Count 3.13 M/uL (4.7-6.1) Hemoglobin 10.3 g/dL (14.0-18.0) Hematocrit 31.9 % (42-52) Mean Corpuscular Volume 101.9 fL (80-100) Mean Corpuscular Hemoglobin 32.9 pg (25-34) Mean Corpuscular Hemoglobin Concent 32.3 g/dl (32-36) Platelet Count 182 K/uL (130-400) Mean Platelet Volume 9.6 fL (7.4-10.4) Neutrophils (%) (Auto) 86.3 % Lymphocytes (%) (Auto) 8.2 % Monocytes (%) (Auto) 4.7 % Eosinophils (%) (Auto) 0.4 % Basophils (%) (Auto) 0.2 % Neutrophils # (Auto) 14.04 K/uL (1.4-6.5) Lymphocytes # (Auto) 1.33 K/uL (1.2-3.4) Monocytes # (Auto) 0.76 K/uL (0.11-0.59) Eosinophils # (Auto) 0.06 K/uL (0-0.5) Basophils # (Auto) 0.03 K/uL (0-0.2) RDW Standard Deviation 51.0 fL (36.4-46.3) RDW Coefficient of Variation 13.6 % (11.5-14.5) Immature Granulocyte % (Auto) 0.2 % Immature Granulocyte # (Auto) 0.04 K/uL (0.00-0.02) Prothrombin Time 11.0 SECONDS (9.0-12.0) Prothromb Time International Ratio 1.0 (0.9-1.1) Activated Partial Thromboplast Time 21.5 SECONDS (21.0-31.0) Partial Thromboplastin Ratio 0.8 Est Creatinine Clear Calc Drug Dose 41.4 ml/min Estimated GFR () 57.5 Estimated GFR (Non- 49.6 BUN/Creatinine Ratio 16.3 (10-20) Calcium Level 9.0 mg/dl (8.5-10.1) Troponin I < 0.015 ng/ml (0-0.045) Urine Color YELLOW Urine Appearance CLEAR (CLEAR) Urine pH 5.0 (4.5-7.5) Urine Specific [place] 1.013 (1.000-1.030) Urine Protein NEG (NEG) Urine Glucose (UA) NEG (NEG) Urine Ketones NEG (NEG) Urine Occult Blood NEG (NEG) Urine Nitrite NEG (NEG) Urine Bilirubin NEG (NEG) Urine Urobilinogen NEG (NEG) Urine Leukocyte Esterase NEG (NEG) Bedside Hemoglobin 8.5 g/dl (14.0-18.0) Bedside Hematocrit 25 % (42-52) Bedside Sodium 139 mEq/L (135-144) Bedside Potassium 4.3 mEq/L (3.3-5.0) Bedside Chloride 106 mEq/L (101-112) Bedside Total CO2 19 mEq/l (24-31) Anion Gap 19.0 mmol/L (16-25) Bedside Blood Urea Nitrogen 24 mg/dl (7-18) Bedside Creatinine 1.4 mg/dl (0.6-1.3) Bedside Glucose (other) 167 mg/dl (70-99) Bedside Ionized Calcium ([place]) 1.08 mmol/l (1.12-1.32) Date/Time Source Procedure Growth Status 06/20/17 23:59 Urine,Catheterized Urine Culture Pending Received Results Past 24 Hours Test 06/20/17 22:41 06/20/17 23:59 06/21/17 00:26 Range/Units White Blood Count 16.26 4.8-10.8 K/uL Red Blood Count 3.13 4.7-6.1 M/uL Hemoglobin 10.3 14.0-18.0 g/dL Hematocrit 31.9 42-52 % Mean Corpuscular Volume 101.9 80-100 fL Mean Corpuscular Hemoglobin 32.9 25-34 pg Mean Corpuscular Hemoglobin Concent 32.3 32-36 g/dl Platelet Count 182 130-400 K/uL Mean Platelet Volume 9.6 7.4-10.4 fL Neutrophils (%) (Auto) 86.3 % Lymphocytes (%) (Auto) 8.2 % Monocytes (%) (Auto) 4.7 % Eosinophils (%) (Auto) 0.4 % Basophils (%) (Auto) 0.2 % Neutrophils # (Auto) 14.04 1.4-6.5 K/uL Lymphocytes # (Auto) 1.33 1.2-3.4 K/uL Monocytes # (Auto) 0.76 0.11-0.59 K/uL Eosinophils # (Auto) 0.06 0-0.5 K/uL Basophils # (Auto) 0.03 0-0.2 K/uL RDW Standard Deviation 51.0 36.4-46.3 fL RDW Coefficient of Variation 13.6 11.5-14.5 % Immature Granulocyte % (Auto) 0.2 % Immature Granulocyte # (Auto) 0.04 0.00-0.02 K/uL Prothrombin Time 11.0 9.0-12.0 SECONDS Prothromb Time International Ratio 1.0 0.9-1.1 Activated Partial Thromboplast Time 21.5 21.0-31.0 SECONDS Partial Thromboplastin Ratio 0.8 Sodium Level 137 136-145 mmol/L Potassium Level 4.2 3.5-5.1 mmol/L Chloride Level 104 98-107 mmol/L Carbon Dioxide Level 27 21-32 mmol/L Anion Gap 6.0 19.0 16-25 mmol/L Blood Urea Nitrogen 21 7-18 mg/dl Creatinine 1.31 0.60-1.40 mg/dl Est Creatinine Clear Calc Drug Dose 41.4 ml/min Estimated GFR () 57.5 Estimated GFR (Non- 49.6 BUN/Creatinine Ratio 16.3 10-20 Random Glucose 182 70-99 mg/dl Calcium Level 9.0 8.5-10.1 mg/dl Troponin I < 0.015 0-0.045 ng/ml Urine Color YELLOW Urine Appearance CLEAR CLEAR Urine pH 5.0 4.5-7.5 Urine Specific [place] 1.013 1.000-1.030 Urine Protein NEG NEG Urine Glucose (UA) NEG NEG Urine Ketones NEG NEG Urine Occult Blood NEG NEG Urine Nitrite NEG NEG Urine Bilirubin NEG NEG Urine Urobilinogen NEG NEG Urine Leukocyte Esterase NEG NEG Bedside Hemoglobin 8.5 14.0-18.0 g/dl Bedside Hematocrit 25 42-52 % Bedside Sodium 139 135-144 mEq/L Bedside Potassium 4.3 3.3-5.0 mEq/L Bedside Chloride 106 101-112 mEq/L Bedside Total CO2 19 24-31 mEq/l Bedside Blood Urea Nitrogen 24 7-18 mg/dl Bedside Creatinine 1.4 0.6-1.3 mg/dl Bedside Glucose (other) 167 70-99 mg/dl Bedside Ionized Calcium ([place]) 1.08 1.12-1.32 mmol/l Microbiology Results 06/20/17 Urine Culture, Received Pending Diagnostic Radiology CHEST ONE VIEW PORTABLE CLINICAL HISTORY: Trauma. HIP PAIN COMPARISON STUDY: 05/02/2016 FINDINGS: The cardiac and mediastinal contours appear stable given the supine technique. There is no focal pulmonary consolidation. There are no selective pleural effusions. No pneumothorax is visualized on the supine study.[ IMPRESSION: Portable supine study. No acute findings CT HEAD WITHOUT CONTRAST (CT) CLINICAL HISTORY: Head pain status post trauma COMPARISON STUDY: February 2016 TECHNIQUE: Axial CT of the brain is performed from the vertex to the skull base. IV contrast was not administered for this examination. A dose lowering technique was utilized adhering to the principles of ALARA. CT DOSE: 537.48 mGy.cm FINDINGS: No intra or extra-axial mass lesions are visualized. There is no CT evidence of acute cortical infarction. There is no evidence of midline shift. There is no acute hemorrhage. No calvarial fractures are visualized. There are patchy white minimal hypodensities likely on a small vessel basis. There is mild particular prominence, in keeping with the degree of volume loss There is no evidence of acute sinusitis IMPRESSION: No acute intracranial findings \ LEFT HIP 4 VIEWS CLINICAL HISTORY: Left hip pain status post trauma COMPARISON STUDY: No previous studies for comparison. FINDINGS: There is a spiral fracture of the proximal femoral shaft width extension to the intertrochanteric region. There is no dislocation. IMPRESSION: Spiral fracture of the proximal femoral shaft width superior extension to the intertrochanteric region EKG SR61 Impression Assessment and Plan 86-year-old male presents with L hip fracture s/p mechanical fall at home. 1. Left hip fracture status post mechanical fall-Ortho consulted and aware of patient. Per ER physician, Ortho recommended 5 pounds of Billings's traction which was ordered. Pain control with Tylenol and oxycodone. Further management per Ortho. Patient is n.p.o. in preparation for possible surgery. Anemia was present in the OR after some IVF, would repeat H/H in am. However, aside from this being stable in the morning, pt has a RCRI of 0.9% risk for major cardiac event based on h/o heart disease. This is stable, and the patient has good functional capacity, able to climb stairs without issue and denying any symptoms of chest pain or shortness of breath. I would recommend proceeding to surgery without further cardiac evaluation at this time, once H/H has returned in am. 2. Leukocytosis-no reports of recent infectious symptoms, patient not on steroids, likely stress response. 3. Diabetes mellitus type 2-insulin sliding scale with carb coverage, holding any Lantus while patient n.p.o. in the perioperative state. 4. CAD status post PCI 2 years ago-stable no chest pain or other symptoms. Continue medical management with aspirin 81 Lipitor 80 Plavix was on hold in preparation for surgery, lisinopril DVT prophylaxis-SCDs, no chemoprophylaxis in preparation for surgery Full code as discussed with patient and his daughter on admission Disposition-MedSur with possible OR tomorrow DO [facility] Resuscitation Status VTE Prophylaxis Will order VTE Prophylaxis: No Reason for no VTE drug order: Contraindicated Reason no Mechanical VTE Order: Contraindicated
[2017-06-21] MEDS ORDERED: NURSING DECISION MEDICATION ORDER SCH (04:45)
[2017-06-21] MEDS ORDERED: CEFAZOLIN IV 2,000 MG in DEXTROSE 5% 50ML 50 ML IV SCH (06:00)
[2017-06-21] MEDS ORDERED: CEFAZOLIN 2000MG IV PUSH 15 ML IV SCH (06:00)
[2017-06-21] MEDS: INSULIN ASPART 100 UNITS/ML 3 ML PEN SC SCH ×2 (06:03→12:00)
[2017-06-21] MEDS: ACETAMINOPHEN 500 MG TAB PO SCH ×3 (06:11→13:35)
--- NOTE | 2017-06-21 06:34 | DIAGNOSTIC IMAGING REPORT ---
CHEST ONE VIEW PORTABLE CLINICAL HISTORY: Trauma. HIP PAIN COMPARISON STUDY: 05/02/2016 FINDINGS: The cardiac and mediastinal contours appear stable given the supine technique. There is no focal pulmonary consolidation. There are no selective pleural effusions. No pneumothorax is visualized on the supine study.[ IMPRESSION: Portable supine study. No acute findings Electronically signed by: Eduardo Burnham M.D. 06/21/2017 6:33 AM Dictated Date/Time: 06/21/2017 6:32 AM
--- NOTE | 2017-06-21 06:39 | DIAGNOSTIC IMAGING REPORT ---
LEFT HIP 4 VIEWS CLINICAL HISTORY: Left hip pain status post trauma COMPARISON STUDY: No previous studies for comparison. FINDINGS: There is a spiral fracture of the proximal femoral shaft width extension to the intertrochanteric region. There is no dislocation. IMPRESSION: Spiral fracture of the proximal femoral shaft width superior extension to the intertrochanteric region Electronically signed by: Eduardo Burnham M.D. 06/21/2017 6:37 AM Dictated Date/Time: 06/21/2017 6:36 AM
--- NOTE | 2017-06-21 06:40 | DIAGNOSTIC IMAGING REPORT ---
CT HEAD WITHOUT CONTRAST (CT) CLINICAL HISTORY: Head pain status post trauma COMPARISON STUDY: February 2016 TECHNIQUE: Axial CT of the brain is performed from the vertex to the skull base. IV contrast was not administered for this examination. A dose lowering technique was utilized adhering to the principles of ALARA. CT DOSE: 537.48 mGy.cm FINDINGS: No intra or extra-axial mass lesions are visualized. There is no CT evidence of acute cortical infarction. There is no evidence of midline shift. There is no acute hemorrhage. No calvarial fractures are visualized. There are patchy white minimal hypodensities likely on a small vessel basis. There is mild particular prominence, in keeping with the degree of volume loss There is no evidence of acute sinusitis IMPRESSION: No acute intracranial findings Electronically signed by: Eduardo Burnham M.D. 06/21/2017 6:39 AM Dictated Date/Time: 06/21/2017 6:38 AM
[2017-06-21] MEDS ORDERED: INFLUENZA VACCINE HIGH DOSE 65+ 0.5 ML SYR IM. ONE (07:00)
[2017-06-21] MEDS ORDERED: INFLUENZA ADMINISTRATION CHARGE ONE (07:00)
[2017-06-21] MEDS ORDERED: INSULIN ASPART 100 UNITS/ML 3 ML PEN SC SCH (08:00)
[2017-06-21 08:11] LABS: BASO % 0.1 %; BASO ABS # 0.01 K/uL (0-0.2); HEMATOCRIT 24.9 % (42-52); HEMOGLOBIN 8.5 g/dL (14.0-18.0); IG# 0.01 K/uL (0.00-0.02); LYMPH % 5.9 %; LYMPH ABS # 0.52 K/uL (1.2-3.4); MEAN CELL VOLUME 101.6 fL (80-100); MEAN CORPUSCULAR HEMOGLOBIN 34.7 pg (25-34); MEAN CORPUSCULAR HGB CONC 34.1 g/dl (32-36); MEAN PLATELET VOLUME 9.9 fL (7.4-10.4); MONO % 5.9 %; MONO ABS # 0.52 K/uL (0.11-0.59); NEUT ABS # 7.72 K/uL (1.4-6.5); PLATELET COUNT 138 K/uL (130-400); RED CELL DISTRIBUTION WIDTH CV 13.6 % (11.5-14.5); RED CELL DISTRIBUTION WIDTH SD 50.8 fL (36.4-46.3); WHITE BLOOD COUNT 8.78 K/uL (4.8-10.8)
[2017-06-21] MEDS: MULTIVITAMIN TAB PO SCH (09:00)
[2017-06-21] MEDS: ATORVASTATIN 40 MG TAB PO SCH (09:00)
[2017-06-21] MEDS: LISINOPRIL 5 MG TAB PO SCH (09:00)
[2017-06-21] MEDS: ASPIRIN 81 MG ECTAB PO SCH (09:00)
[2017-06-21] MEDS: CHOLECALCIFEROL 1000 INTER.UNIT TAB PO SCH (09:00)
--- NOTE | 2017-06-21 11:45 | ORTHOPEDIC CONSULTATION ---
DATE OF CONSULTATION: 06/21/2017 HISTORY OF PRESENT ILLNESS: This is an 86-year-old gentleman seen at request of Dr. Lawrence and Dr. Get Henderson for a left displaced proximal femur fracture. Apparently, the patient had a mechanical fall at home when he was carrying something while walking upstairs, lost his balance because his cat ran past. He fell on the steps and struck his head. He had no loss of consciousness, no headaches, no visual changes, no neck pain. He had no chest pain, breathing difficulties, nausea, vomiting, diarrhea or abdominal pain. The patient had been transported to [facility], seen by the Emergency Department and radiographs and he was evaluated and noted to have a left proximal femur fracture with angulation and slight displacement. He was then admitted to the hospital for medical optimization and surgical fixation. The patient was reasonably comfortable at this time lying in bed in supine with his left lower extremity in traction. His daughter and his granddaughter present at bedside. PAST MEDICAL HISTORY: Benign prostatic hypertrophy, coronary artery disease, diabetes mellitus type 2, hypertension, and prostate CA. PAST SURGICAL HISTORY: Carpal tunnel release, cholecystectomy, and coronary artery stents. ALLERGIES: PEAS AND FRESH RAW GREEN PEAS WITH THROAT SWELLING. MEDICATIONS: Enteric coated aspirin 81 mg daily, Lipitor 80 mg daily, vitamin D 5000 units daily, Plavix 75 mg daily, Zestril 5 mg daily, Glucophage 500 mg p.o. b.i.d., multivitamin daily, and Nitrostat 1 tab sublingual p.r.n. chest pain. SOCIAL HISTORY: Denies tobacco, alcohol or drug use. He is and lives with his . He is retired. PHYSICAL EXAMINATION: GENERAL: This is an 86-year-old gentleman lying supine in his hospital room bed in traction with his daughter and granddaughter present. He is alert and oriented x3. Speech clear and fluent. Affect is appropriate. He does have slowed speech; however, content and content of thoughts appears appropriate. EXTREMITIES: The left lower extremity has minor bruising around the left greater trochanter. Left lower extremity is slightly angulated and externally rotated and shortened. Dorsalis pedis and posterior pulses are palpable. Feet are warm. Cap refill is approximately 3 seconds. He has tenderness to palpation of the left proximal femur in the peritrochanteric region. Positive log roll test. IMAGING DATA: Radiographs demonstrate a spiral proximal femoral fracture just in the subtrochanteric region with extension into the intertrochanteric region, left lower extremity. LABORATORIES: Reviewed. IMPRESSION: Left displaced proximal femoral fracture subtrochanteric/intertrochanteric region. RECOMMENDATIONS: Open reduction internal fixation, left proximal femur fracture with a trochanteric nailing. Discussed the above with the patient and his family. Consent was obtained and the informed consent process was completed at bedside. The patient was scheduled for surgical fixation when deemed medically stable for surgery. Thank you for the opportunity to consult in the care of this patient.
[2017-06-21] MEDS ORDERED: EpHEDrine SULFATE INJ 50 MG/ML AMP IV PRN ×2 (17:30→17:45)
[2017-06-21] MEDS ORDERED: MEPERIDINE HCL 25 MG/ML CARP IV PRN (17:30)
[2017-06-21] MEDS ORDERED: HYDROmorphone INJ 2 MG/ML SYR/VIAL IV PRN (17:30)
[2017-06-21] MEDS ORDERED: FENTANYL CITRATE INJ 50 MCG/1 ML 2 ML VIAL ONE ×2 (17:30→18:52)
[2017-06-21] MEDS ORDERED: FENTANYL CITRATE INJ 50 MCG/1 ML 2 ML VIAL IV PRN ×2 (17:30→17:45)
[2017-06-21] MEDS ORDERED: LABETALOL HCL IV 5 MG/ML 20ML IV PRN (17:30)
[2017-06-21] MEDS ORDERED: ATROPINE SULFATE 0.1 MG/ML 5ML SYR IV PRN ×2 (17:30→17:45)
[2017-06-21] MEDS ORDERED: FLUMAZENIL 0.1 MG/1 ML 10 ML VIAL IV PRN (17:30)
[2017-06-21] MEDS ORDERED: PHENYLEPHRINE 100MCG/ML 5ML SYR IV PRN (17:30)
[2017-06-21] MEDS ORDERED: LIDOCAINE HCL 2% 2 ML VIAL (20MG/ML) ONE (17:33)
[2017-06-21] MEDS ORDERED: DEXAMETHASONE SOD INJ 4 MG/ML VIAL ONE (17:33)
[2017-06-21] MEDS ORDERED: PROPOFOL IV EMULSION 10 MG/ML 20 ML VIAL IV ONE (17:33)
[2017-06-21] MEDS ORDERED: ONDANSETRON INJ 2 MG/ML 2 ML VIAL ONE (17:33)
[2017-06-21] MEDS ORDERED: BUPIVACAINE 0.5 % 5 MG/1 ML MPF 30ML VIAL ONE (17:34)
[2017-06-21] MEDS ORDERED: SUCCINYLCHOLINE 100MG/5ML SYR IV ONE (17:38)
[2017-06-21] MEDS ORDERED: HYDROmorphone INJ 1 MG/ML SYR IV PRN (17:45)
[2017-06-21] MEDS ORDERED: CEFAZOLIN SOD 1 GM VIAL ONE (18:02)
--- NOTE | 2017-06-21 20:48 | [facility] Post Operative Brief Note ---
Immediate Operative Summary Operative Date Jun 21, 2017. Pre-Operative Diagnosis Left displaced proximal femoral fracture subtrochanteric/intertrochanteric region Post-Operative Diagnosis Left displaced proximal femoral fracture subtrochanteric/intertrochanteric region Procedure(s) Performed 1. ORIF Left Subtrochanteric/ Intertrochanteric Femur fracture with Synthes Long interlocked Fixation Nail. 2.Application Synthes 1.7mm bone cable Surgeon Dr Heriberto Griffin Relief Map Modeler Surgeon(s) Zuly Wooten PA-C Estimated Blood Loss 200ml Findings Consistent with Post-Op Diagnosis Specimens None Drains None Anesthesia Type General (GETT w/ local) Complication(s) none Disposition Accompanied Pt To Recover: no Disposition: Recovery Room / PACU
[2017-06-21] MEDS ORDERED: DOCUSATE SODIUM/SENNA 50/8.6MG TAB PO SCH (21:00)
[2017-06-21] MEDS ORDERED: METOCLOPRAMIDE HCL INJ 5 MG/ML 2 ML VIAL IV PRN (21:15)
[2017-06-21] MEDS ORDERED: MoRPHine SULFATE 2 MG/ML CARP IV PRN (21:15)
[2017-06-21] MEDS ORDERED: ACETAMINOPHEN 500 MG TAB PO SCH (21:15)
[2017-06-21] MEDS ORDERED: ALUMINUM/MAGNESIUM/SIMETH (MAALOX MAX) 30 ML UDC PO PRN (21:15)
[2017-06-21] MEDS ORDERED: ZOLPIDEM TARTRATE 5 MG TAB PO PRN (21:15)
[2017-06-21] MEDS ORDERED: DiphenhydrAMINE HCL 50 MG/ML VIAL IV PRN (21:15)
[2017-06-21 21:40] LABS: HEMATOCRIT 24.2 % (42-52)
--- NOTE | 2017-06-21 21:43 | DIAGNOSTIC IMAGING REPORT ---
INTRAOPERATIVE LEFT FEMUR 6 VIEWS CLINICAL HISTORY: Left proximal femoral fracture COMPARISON: L radiographic study dated 06/20/2017 DISCUSSION: 6 intraoperative fluoroscopic spot images are provided for interpretation. These demonstrate an trochanteric now and interlocking intramedullary marcelino fixating the patient's proximal femoral fracture. There is a proximal cerclage wire. The medullary marcelino is fixated distally with 2 screws IMPRESSION: Intraoperative fluoroscopic spot images demonstrating internal fixation of a proximal femoral fracture Electronically signed by: Eduardo Burnham M.D. 06/21/2017 9:42 PM Dictated Date/Time: 06/21/2017 9:40 PM
--- NOTE | 2017-06-21 21:55 | OPERATIVE REPORT ---
DATE OF OPERATION: 06/21/2017 PREOPERATIVE DIAGNOSES: Left displaced subtrochanteric/intertrochanteric femur fracture. POSTOPERATIVE DIAGNOSIS: Left displaced subtrochanteric/intertrochanteric femur fracture. PROCEDURE PERFORMED: 1. Open reduction and internal fixation left subtrochanteric/intertrochanteric femur fracture with implantation of a Synthes long interlocked fixation nail. 2. Application of Synthes 1.7 mm bone cable via separate incision. SURGEON: Tin Griffin DO. ADVERTISING SPECIALIST: Zuly Schilling PA-C, PA-C who was present for patient positioning, sterile prep and drape, management of retractors and instruments. He was present through the critical portions of the case including wound closure, application of sterile dressing and transport of the patient to recovery. ANESTHESIA: General endotracheal tube with local. SPECIMENS: None. DRAINS: None. COMPLICATIONS: None. BLOOD LOSS: 200 mL. PERTINENT HISTORY: This is an 86-year-old gentleman who had a mechanical fall. He had no head or neck trauma. He presented to [facility] via EMS. He was evaluated and radiographed and noted to have a displaced subtrochanteric/intertrochanteric femur fracture. He was then admitted to the hospital for medical optimization and eventual surgical fixation. All potential risks, benefits, complications, alternatives, rehab, potential for incomplete relief of symptoms, need for further surgery, DVT, PE, , nonunion, malunion, hardware failure, wound complications were discussed with the patient and his family. They all decided to proceed with procedure as indicated. IMPLANTS USED: An 11.0 x 95 mm helical blade, 11 x 240 mm titanium trochanteric fixation nail, two 5 mm locking screws and a 1.7 mm Synthes cable with crimp. DESCRIPTION OF THE PROCEDURE: The patient was transferred to the operative suite. The proper site was identified. The consent was reviewed, the patient was then administered sedation and spinal anesthetic. Once appropriate, the patient then transferred to the fracture table where the lower extremity was placed in fracture table traction and the nonoperative leg was placed in the well leg blake. All bony prominences were properly padded and protected. The padded post was placed in the peroneal and the patient was positioned appropriately. Next the left leg was placed on traction and reduction of the fracture was performed under fluoroscopic control. Next the operative hip was then sterilely prepped and draped in the usual fashion. Next a 10-blade scalpel incision was used to make an incision proximal to the greater trochanter. The incision was deep in the subcutaneous tissue and fascia and the tip of the greater trochanter was then palpated followed by placement of a guide pin under fluoroscopic control driven into the greater trochanter down to the level of the less trochanter. This was confirmed in AP and lateral projections followed by placement of the proximal reamer over the cannulated guide pin. Next the reamer was then removed using the soft tissue protector, which was also removed. Next the ball tip guide marcelino was placed into the proximal femur under fluoroscopic control confirmed with AP and lateral fluoroscope projections. Next the nail was then passed over the guide marcelino into the femur, the guide marcelino was removed and then under fluoroscopic control appropriate level of the femoral nail was then placed in AP projections. Next the targeting device was then fixed to the driving handle and 10-blade scalpel incision was made in the lateral aspect of the thigh. Next the tissue protector and cannulated guide system was then passed into the soft tissue until it was securely fixed against a lateral aspect of the femoral cortex. This was also confirmed under C-arm. Next the guide pin for the spiral blade was driven into the lateral aspect of the femur confirming this with AP lateral projections until the guide pin was in the center of the femoral neck and head approximately 5 mm from the subcortical bone of the femur. Next the spiral blade was then measured and then the lateral cortex was then drilled with the cortex reamer followed by use of the triple reamer with the depth stop set at appropriate depth. In this case a 11.0 x 95 mm helical blade was then inserted over the cannulated guide marcelino under fluoroscopic control. This was seated appropriately then traction was reduced from the limb and the fracture was then gently compressed and then locked proximally with the flexible screwdriver. Next the spiral blade was then disengaged from its insertion handle, insertion handle was then removed and the guide pin was removed from the femoral neck and head. Next the lateral targeting arm was used to insert the distal locking screw. First a 10-blade scalpel incision was made in the lateral aspect of the thigh, captured drill sleeves were then tamped gently to the lateral aspect of the femoral cortex then the locking screw hole was then drilled, measured and then an appropriate length screw was placed to lock the distal aspect of the nail. Next targeting sleeves were then removed. The insertion arm was then removed from the nail and final x-rays were obtained in AP and lateral projections. All incisions were then copiously irrigated with sterile normal saline. The proximal gluteus fascia was then closed using interrupted #1 Vicryl, the dermis was closed using buried interrupted 2-0 Vicryl sutures in all three incisions and the skin was then closed using skin susanne. A sterile compressive dressing consisting of Xeroform gauze, sterile 4 x 4's and Tegaderm was applied. The patient was then awakened and taken to recovery in stable condition. I attest to the content of the Intraoperative Record and any orders documented therein. Any exception s are noted below.
[2017-06-21] MEDS ORDERED: ERGOCALCIFEROL 50,000 INTER.UNIT CAP PO ONE (22:00)
[2017-06-21] MEDS ORDERED: ACETAMINOPHEN 325 MG TAB PO SCH (22:00)
--- NOTE | 2017-06-21 22:04 | Anesthesiology Progress Note ---
Anesthesia Post Op Note Date & Time Jun 21, 2017 at 21:54 Vital Signs Pain Intensity: 0 Vital Signs Past 12 Hours Date Time Temp Pulse Resp B/P (MAP) Pulse Ox O2 Delivery O2 Flow Rate FiO2 06/21/17 21:30 96 18 95/48 100 Nasal Cannula 2 06/21/17 21:20 84 18 100 Nasal Cannula 2 06/21/17 21:12 36.2 111 18 91/62 100 Oxymask 10 06/21/17 15:45 93 Room Air 06/21/17 15:34 37.4 73 18 124/57 (79) 93 Room Air 06/21/17 13:57 36.8 68 19 116/94 94 06/21/17 13:04 37.4 69 19 119/65 94 06/21/17 12:00 36.9 82 18 110/56 93 06/21/17 11:35 36.9 73 18 109/57 95 06/21/17 11:17 36.2 73 20 108/58 95 06/21/17 10:59 36.9 75 20 107/50 95 Notes Mental Status: alert / awake / arousable, participated in evaluation Pt Amnestic to Procedure: Yes Nausea / Vomiting: adequately controlled Pain: adequately controlled Airway Patency, RR, SpO2: stable & adequate BP & HR: stable & adequate Hydration State: stable & adequate Anesthetic Complications: no major complications apparent The patient is an 86 y/o male with a h/o CAD, PR s/p JOEL stent x2 in 2015, HTN , DLD, PVD, IDDM and prostate CA who is s/p L IM marcelino with Dr. Griffin. The patient was placed under GA as his Plavix had not been stopped for more than one day. Preoperatively, the patient was not oriented to his date of or the year so consent was obtained form his . Intraoperatively, he did require several boluses of 0.1 o 0.2mg IV of phenylephrine to maintain SBP > 100. Preoperatively, he had received 1 UPRBC for a Hgb of 8.5 on the floor. His EBL intraop was 200cc and he received 1400cc crystalloid. The patient was extubated at the end of the case and taken to the PACU. The patient continued to be confused in recovery. His SBP was in the 90s-100s and his HR was in the 90s-100s. An H&H was drawn and showed a hemoglobin of 8.0. A full report was given to Dr. Francisca Allen who has been following the patient on the floor. The patient will be transferred to telemetry for close monitoring and he will receive another unit of PRBCs.
[2017-06-21] MEDS ORDERED: ACETAMINOPHEN IV 650 MG in EMPTY BAG 0 ML IV SCH (23:15)
[2017-06-22] VITALS (19 sets, daily range): BP systolic 68–118; BP diastolic 43–71; PULSE 70–122; TEMP 36.4–37.4; O2SAT 93–98
[2017-06-22] MEDS: INSULIN ASPART 100 UNITS/ML 3 ML PEN SC SCH ×5 (00:15→20:25)
[2017-06-22] MEDS: CEFAZOLIN IV 2,000 MG in SYRINGE 0 ML IV SCH ×2 (02:08→13:13)
[2017-06-22] MEDS: ACETAMINOPHEN 500 MG TAB PO SCH ×3 (05:56→22:27)
[2017-06-22 07:15] LABS: HEMATOCRIT 25.1 % (42-52); HEMOGLOBIN 8.5 g/dL (14.0-18.0); MEAN CELL VOLUME 94.4 fL (80-100); MEAN CORPUSCULAR HGB CONC 33.9 g/dl (32-36); MEAN PLATELET VOLUME 9.7 fL (7.4-10.4); PLATELET COUNT 144 K/uL (130-400); RED CELL DISTRIBUTION WIDTH CV 17.8 % (11.5-14.5); RED CELL DISTRIBUTION WIDTH SD 60.7 fL (36.4-46.3); WHITE BLOOD COUNT 11.01 K/uL (4.8-10.8)
[2017-06-22 07:35] LABS: CARBON DIOXIDE 22 mmol/L (21-32); CREATININE 1.46 mg/dl (0.60-1.40); GLUCOSE 164 mg/dl (70-99); POTASSIUM 4.8 mmol/L (3.5-5.1); SODIUM 137 mmol/L (136-145)
[2017-06-22 07:47] LABS: HEMOGLOBIN A1C 5.4 % (4.5-5.6)
[2017-06-22 07:48] LABS: BLOOD UREA NITROGEN 37 mg/dl (7-18)
[2017-06-22] MEDS: LISINOPRIL 5 MG TAB PO SCH (08:03)
[2017-06-22] MEDS: FERROUS GLUCONATE 324 MG TAB PO SCH ×3 (08:03→16:45)
[2017-06-22] MEDS: DOCUSATE SODIUM 100 MG CAP PO SCH ×2 (08:03→20:26)
[2017-06-22] MEDS: ASPIRIN 81 MG ECTAB PO SCH (08:03)
[2017-06-22] MEDS: PANTOprazole SOD 40 MG TAB PO SCH (08:03)
[2017-06-22] MEDS: MULTIVITAMIN TAB PO SCH (08:03)
[2017-06-22] MEDS: ATORVASTATIN 40 MG TAB PO SCH (08:03)
[2017-06-22] MEDS: CHOLECALCIFEROL 1000 INTER.UNIT TAB PO SCH (08:03)
--- NOTE | 2017-06-22 08:19 | Orthopedic Progress Note ---
Orthopedic Progress Note Date of Service Jun 22, 2017. Subjective Post OP Day: 1 Additional Notes: Pt sitting up in bed. Nursing present taking care of pt. Pt seems a bit confused but pleasant. After asking several times how his left hip feels and if he was having pain, he states "it's fine". Pt looks comfortable. Objective calves soft nontender, N/V intact, dressing C/D/I, A&O x3, toes mobile Date Time Temp Pulse Resp B/P (MAP) Pulse Ox O2 Delivery O2 Flow Rate FiO2 06/22/17 07:49 37.3 89 19 117/71 (86) 94 Room Air 06/22/17 04:06 Room Air 06/22/17 03:21 37.4 90 17 108/64 (79) 95 Room Air 06/22/17 01:50 37.2 87 16 118/67 96 06/22/17 01:20 37.4 86 16 105/63 96 06/22/17 00:50 37.0 89 16 105/64 98 06/22/17 00:35 37.2 86 16 100/62 97 06/22/17 00:20 36.6 84 16 101/61 97 06/22/17 00:05 37.1 84 16 95/59 97 06/22/17 00:02 Room Air 06/21/17 23:50 36.9 86 16 92/59 96 06/21/17 23:14 36.5 87 16 89/57 (68) 97 Room Air 06/21/17 21:57 36.6 06/21/17 21:50 96 18 97/40 100 Nasal Cannula 2 06/21/17 21:40 96 18 100 Nasal Cannula 2 06/21/17 21:30 84 16 84/51 (62) 95 Room Air 06/21/17 21:30 96 18 95/48 100 Nasal Cannula 2 06/21/17 21:20 84 18 100 Nasal Cannula 2 06/21/17 21:12 36.2 111 18 91/62 100 Oxymask 10 06/21/17 21:00 36.7 89 16 93/50 (64) 91 Room Air 06/21/17 15:45 93 Room Air 06/21/17 15:34 37.4 73 18 124/57 (79) 93 Room Air 06/21/17 13:57 36.8 68 19 116/94 94 06/21/17 13:04 37.4 69 19 119/65 94 06/21/17 12:00 36.9 82 18 110/56 93 06/21/17 11:35 36.9 73 18 109/57 95 06/21/17 11:17 36.2 73 20 108/58 95 06/21/17 10:59 36.9 75 20 107/50 95 06/21/17 09:17 72 102/54 (70) Laboratory Results 24 Hours: Test 06/21/17 21:32 06/22/17 06:37 Hematocrit 24.2 % 25.1 % Hemoglobin 8.0 g/dL 8.5 g/dL Assessment & Plan Assessment: POD 1 s/p Left TFN Anemia - pt was anemic on admission. Plan: PT/OT as able Anemia - Pt received a total of 2 units PRBC's yesterday. He has one on hold. Hgb 8.5. Transfuse as per Med Service DVT Proph - Will order ADDI campos; has SCD's ; On Plavix but with blood loss and surgery done late last night, would hold Plavix today or until later this afternoon if ok with Med Service. Also on ASA daily ADDENDUM: PATIENT HYPOTENSIVE WHEN SITTING UP IN BED THIS AM. GOING TO GIVE ANOTHER UNIT PRBCS. HOLDING PLAVIX AND ASA FOR NOW PER DR. VAZQUEZ. [facility] UPON DISCHARGE IF ACCEPTED. Inhouse Planning Pain Management: Oxy IR DVT Prophylaxis: TEDs, SCDs, ASA, other (Plavix) Discharge Planning Discharge Planning: uncertain
[2017-06-22] MEDS ORDERED: CLOPIDOGREL BISULFATE 75 MG TAB PO SCH (09:00)
[2017-06-22] MEDS ORDERED: MULTIVITAMIN TAB PO SCH (09:00)
[2017-06-22 10:54] LABS: HEMATOCRIT 22.4 % (42-52); HEMOGLOBIN 7.7 g/dL (14.0-18.0)
--- NOTE | 2017-06-22 11:25 | Progress Note ---
Internal Med Progress Note Date of Service: Jun 22, 2017. Provider Documentation: SUBJECTIVE: Patient had a hypotensive episode this morning, with physical therapy blood pressure dropped 68/43 standing/tachycardic heart rate 101 Patient felt dizzy and lightheaded Physical therapy was discontinued -Patient evaluated at bedside, very pale and diaphoretic -Keeping his eyes closed, very slow to response to questions denies of any chest pain, chest heaviness, or shortness of breath Knows that he is in a Hospital Can recall the events that led him to fall fracture his hip and admission to hospital OBJECTIVE: Vital Signs-as noted below Exam: General-elderly male, pale, diaphoretic Eyes-sclera nonicteric, PERRLA/EOMI ENT-moist oral mucosa Neck-no JVD no carotid bruit, no thyromegaly Lungs-no wheeze or rales auscultated Heart-regular, tachycardic Abdomen-soft, nontender, bowel sounds active Extremities-status post left hip ORIF surgery, surgical tape on the left hip site intact, no bleeding or drainage noted Neuro-increased lethargy, generalized weakness, slow to response, no focal neurological deficit noted Lab data as noted below. ASSESSMENT & PLAN: 1. Mechanical fall status post left femur fracture: - Presented with left hip fracture after sustaining a mechanical fall/losing balance while walking up stairs Went ORIF left subtrochanteric/intertrochanteric femur fracture with implementation of his Synthes long interlocked fixation nail . Appreciate input from orthopedics Plavix will be kept on hold because of recent surgical procedure 2. Acute blood loss anemia: Due to recent postop status/left femur ORIF -Patient has known diagnosis of chronic anemia baseline hemoglobin approximately 10 - Patient was given 1 unit of PRBC preoperatively (Hb 8.5) - Postop hemoglobin was 8 with hypotensive episode Given 1 unit of PRBC yesterday -Stat H&H check today due to hypotensive episode Shows hemoglobin 7.7, hematocrit 22.4 -Ordered for 1 unit of PRBC to be transfused -Return volume status -Repeat H&H check at 1800 today -Continue to hold aspirin/Plavix 3. Hypotension: -Due to acute blood loss anemia/postop volume loss/dehydration Patient had significant orthostatic hypotension with physical therapy today Sitting blood pressure 89/56, heart rate 122 Standing blood pressure 68/43, heart rate 101 Supine blood pressure 98/55, heart rate 91 --Stat H&H: Hemoglobin 7.7, hematocrit 22.4 -Ordered for 1 unit of PRBC to be transfused -Continue to hold lisinopril -Patient will need continued monitoring 4. Acute kidney failure on CKD stage III: Creatinine elevated 1.31-->1.46 Secondary to dehydration/intravascular volume depletion./Acute blood loss anemia -NONI inhibitor has been kept on hold since admission -Getting 1 unit of blood transfusion -Repeat PRP at 1800 -May need IV fluids, if blood pressure remains low after transfusion -Monitor daily Isik metabolic panel -Avoid NSAIDs /diuretics/contrast studies 5. Coronary artery disease history of elevated inferior MT in 2016 status post RCA stent History of ST elevated inferior MT in 07/2015 Had code heart alert; underwent emergent cardiac cath by Dr. Payton -Cardiac cath shows: -Severe coronary artery disease 100% thrombotic occlusion of mid RCA , 50% distal stenosis 70% occlusion of LAD status post x2 drug-eluting stent placed in mid and proximal RCA --Medical management was recommended for 70% LAD occlusion, for lack of symptom -Cardiology recommendation: Aspirin 81 mg daily to be continued lifelong. Plavix 75 mg daily to be continued without interruption for at least 12 months Patient's been on aspirin Plavix statin NONI Not on beta-peggy for baseline bradycardia Patient is 2 years post JOEL stent Aspirin and Plavix kept on hold preoperatively/and postop for bleeding complications -At baseline patient denies of any angina symptoms Was very active, had increased exercise tolerance -Had mild EKG change ST depression on anterior lateral lead on admission ST depression resolved after correction of anemia -Preop troponin 2 were negative Due to a.m. episode of hypotension We will check stat EKG, troponin -Ordered for resting echo -Continue to monitor in telemetry - 6. Chronic CHF with diastolic dysfunction: Echo: 08/04/2015 Left ventricular systolic function is normal. Hypokinesis of the proximal and mid inferior septum. Ejection fraction 55-60%. Diastolic dysfunction, grade 2 pseudonormalization pattern. There is mild mitral regurgitation -Currently intravascular volume depleted/hypotension/acute blood loss anemia -NONI inhibitor been kept on hold -Getting blood transfusion, -Monitor volume status(getting PRBC transfusion), intake and output, daily weight -echo to assess -LV function 7. Type 2 diabetes: Well controlled, hemoglobin A1c 5.4 -Insulin sliding scale CODE STATUS: Full code DVT PROPHYLAXIS Moderate to high risk for DVT-Postop recent hip surgery Pharmacological anticoagulation avoided due to acute blood loss anemia/ hypotension Ordered for SCDs and teds Aspirin twice daily will be resumed as soon as possible as anemia is corrected/ vitals remained stable DISPOSITION Hold PT OT today: Anemia /hypotension resume PT OT tomorrow if patient remains clinically stable Continue to monitor in telemetry Patient will need rehab after discharge from [facility] consulted for discharge planning Plan of care discussed with daughter Lula and son at bedside Medicine follow-up with Dr. Willis at [facility] Vital Signs: Date Time Temp Pulse Resp B/P (MAP) Pulse Ox O2 Delivery O2 Flow Rate FiO2 06/22/17 11:40 37.3 79 16 93/56 93 06/22/17 08:30 37.3 122 89/56 (67) Room Air 2.0 101 68/43 (51) 91 98/55 (69) 06/22/17 08:00 Room Air 06/22/17 07:49 37.3 89 19 117/71 (86) 94 Room Air 06/22/17 04:06 Room Air 06/22/17 03:21 37.4 90 17 108/64 (79) 95 Room Air 06/22/17 01:50 37.2 87 16 118/67 96 06/22/17 01:20 37.4 86 16 105/63 96 06/22/17 00:50 37.0 89 16 105/64 98 06/22/17 00:35 37.2 86 16 100/62 97 06/22/17 00:20 36.6 84 16 101/61 97 06/22/17 00:05 37.1 84 16 95/59 97 06/22/17 00:02 Room Air 06/21/17 23:50 36.9 86 16 92/59 96 06/21/17 23:14 36.5 87 16 89/57 (68) 97 Room Air 06/21/17 21:57 36.6 06/21/17 21:50 96 18 97/40 100 Nasal Cannula 2 06/21/17 21:40 96 18 100 Nasal Cannula 2 06/21/17 21:30 84 16 84/51 (62) 95 Room Air 06/21/17 21:30 96 18 95/48 100 Nasal Cannula 2 06/21/17 21:20 84 18 100 Nasal Cannula 2 06/21/17 21:12 36.2 111 18 91/62 100 Oxymask 10 06/21/17 21:00 36.7 89 16 93/50 (64) 91 Room Air 06/21/17 15:45 93 Room Air 06/21/17 15:34 37.4 73 18 124/57 (79) 93 Room Air 06/21/17 13:57 36.8 68 19 116/94 94 06/21/17 13:04 37.4 69 19 119/65 94 Lab Results: Results Past 24 Hours Test 06/21/17 12:15 06/21/17 17:57 06/21/17 21:23 06/21/17 21:24 Range/Units Troponin I < 0.015 0-0.045 ng/ml Bedside Glucose 116 211 70-99 mg/dl Calcium Level 7.9 8.5-10.1 mg/dl Test 06/21/17 21:32 06/22/17 00:11 06/22/17 00:20 06/22/17 06:10 Range/Units Hemoglobin 8.0 14.0-18.0 g/dL Hematocrit 24.2 42-52 % Troponin I < 0.015 < 0.015 0-0.045 ng/ml 25-Hydroxy Vitamin D Total 63.0 30-100 ng/ml Bedside Glucose 221 174 70-99 mg/dl Test 06/22/17 06:37 06/22/17 10:42 06/22/17 11:46 Range/Units White Blood Count 11.01 4.8-10.8 K/uL Red Blood Count 2.66 4.7-6.1 M/uL Hemoglobin 8.5 7.7 14.0-18.0 g/dL Hematocrit 25.1 22.4 42-52 % Mean Corpuscular Volume 94.4 80-100 fL Mean Corpuscular Hemoglobin 32.0 25-34 pg Mean Corpuscular Hemoglobin Concent 33.9 32-36 g/dl RDW Standard Deviation 60.7 36.4-46.3 fL RDW Coefficient of Variation 17.8 11.5-14.5 % Platelet Count 144 130-400 K/uL Mean Platelet Volume 9.7 7.4-10.4 fL Sodium Level 137 136-145 mmol/L Potassium Level 4.8 3.5-5.1 mmol/L Chloride Level 105 98-107 mmol/L Carbon Dioxide Level 22 21-32 mmol/L Anion Gap 10.0 3-11 mmol/L Blood Urea Nitrogen 37 7-18 mg/dl Creatinine 1.46 0.60-1.40 mg/dl Est Creatinine Clear Calc Drug Dose 38.0 ml/min Estimated GFR () 50.5 Estimated GFR (Non- 43.5 BUN/Creatinine Ratio 25.3 10-20 Random Glucose 164 70-99 mg/dl Calcium Level 8.0 8.5-10.1 mg/dl Troponin I < 0.015 0-0.045 ng/ml
[2017-06-22] MEDS ORDERED: NURSING VERBAL MED ORDER ONE (16:30)
[2017-06-22] MEDS ORDERED: SODIUM CHLORIDE 0.9% 150ML 150 ML IV ONE (17:15)
[2017-06-22 17:51] LABS: HEMATOCRIT 23.9 % (42-52); HEMOGLOBIN 8.2 g/dL (14.0-18.0)
[2017-06-22 18:33] LABS: CALCIUM 7.5 mg/dl (8.5-10.1); CREATININE 1.99 mg/dl (0.60-1.40); POTASSIUM 4.3 mmol/L (3.5-5.1)
--- NOTE | 2017-06-22 19:06 | Progress Note ---
Progress Note Date of Service Jun 22, 2017. Progress Note Patient remains hypotensive Systolic blood pressure in low 90s/80s -Status post total 3 units of PRBC transfusion -Given 150 mL normal saline bolus -Concern for possible ongoing bleeding at the left hip surgical site -Ordered for stat CT of left pelvis without contrast -Monitor H&H every 12 hours Patient remains lethargic/delayed response -Mental status waxing and waning -Earlier this morning until his name that he is in this hospital Later part of the evening-appears to be more confused, staring at the ceiling, unable to finish the meal as patient was pocketing food in mouth encephalopathy secondary to hypotension, postop status? Continue to monitor will need CT head without contrast if mental status declines CT head without contrast done preop/on admission was negative for any acute change
--- NOTE | 2017-06-22 19:31 | DIAGNOSTIC IMAGING REPORT ---
CHEST ONE VIEW PORTABLE HISTORY: 86 years-old Male SOb acute shortness of breath COMPARISON: Chest radiograph 06/20/2017 TECHNIQUE: Portable AP view of the chest FINDINGS: Cardiomediastinal and hilar silhouettes are within normal limits. There is no pneumothorax, large pleural effusion, focal airspace consolidation or overt pulmonary edema. Unchanged mild blunting of the right costophrenic angle. Bones of the chest appear grossly intact. Degenerative changes noted within the shoulders and spine. IMPRESSION: No acute process. The above report was generated using voice recognition software. It may contain grammatical, syntax or spelling errors. Electronically signed by: Nitish Khalil M.D. 06/22/2017 7:29 PM Dictated Date/Time: 06/22/2017 7:28 PM
--- NOTE | 2017-06-22 20:18 | DIAGNOSTIC IMAGING REPORT ---
LEFT HIP CT CT DOSE: 1665.70 mGy.cm HISTORY: anemia /post hip surgery TECHNIQUE: Multiaxial CT images of the left were performed and reformatted in the sagittal and coronal plane without the use of contrast. A dose lowering technique was utilized adhering to the principles of ALARA. COMPARISON: Left hip 06/21/2017. FINDINGS: The patient is status post recent internal fixation of a proximal left femur fracture with an intramedullary marcelino and interlocking femoral neck pin. There ia a cerclage wire at the proximal shaft of the femur. The hardware appears intact. The alignment is near-anatomic. No fractures within the visualized pelvic bones. Skin susanne along the lateral aspect of the left hip/thigh. Soft tissue gas within the left hip is likely due to the recent postoperative change. Dolan catheter within the decompressed bladder. Subcutaneous edema throughout the left hip/thigh. There is also deep soft tissue edema within the proximal left thigh. This is also likely due to the recent postoperative change. There are few bony fragments anterior to the left hip. Punctate foci of increased density along the incision site of the left hip is also likely due to the postoperative change. No large hip effusion. No large hematoma identified within the left hip/thigh. IMPRESSION: 1. No evidence for a large hematoma within the left hip/thigh. 2. Additional findings as described above are likely explained by the recent postoperative change. Electronically signed by: Diomedes Chavez M.D. 06/22/2017 8:17 PM Dictated Date/Time: 06/22/2017 8:12 PM
[2017-06-22] MEDS: SENNA 8.6 MG TAB PO SCH (20:26)
[2017-06-22] MEDS: SODIUM CHLORIDE 0.9% 1000ML 1,000 ML IV SCH (20:27)
[2017-06-23] VITALS (14 sets, daily range): BP systolic 113–158; BP diastolic 54–76; PULSE 64–85; TEMP 36.5–38.2; O2SAT 94–98
[2017-06-23] MEDS: ACETAMINOPHEN 500 MG TAB PO SCH ×3 (05:11→20:52)
[2017-06-23] MEDS: INSULIN ASPART 100 UNITS/ML 3 ML PEN SC SCH ×4 (07:00→20:53)
--- NOTE | 2017-06-23 07:04 | NEPHROLOGY CONSULTATION ---
DATE OF CONSULTATION: 06/23/2017 ATTENDING OF RECORD: Dina Lawrence MD. REASON FOR CONSULTATION: COLEEN. HISTORY OF PRESENT ILLNESS: This is an 86-year-old male with underlying CKD stage III, who presented with a left hip fracture. The patient does have underlying diabetes and hypertension as well as history of prostate cancer in 2013, on Lupron. The patient underwent surgery on the , underwent an ORIF. The patient did require blood transfusions with 2 units on the and 1 on the . Hemoglobin level did present at 10.3, dropped down to 8 on the . After 2 units, it went up to 8.5, trended down to 7.7, received another unit and was 8.2. Today's labs are pending. The patient currently on normal saline at 80 mL an hour for 1 L and had 600 mL of urine output overnight, which is an improvement in urination. Weight is up 4 kilos. Appetite is not great, and the patient is not the best narrator. REVIEW OF SYSTEMS: The patient knows name and knows location, but does not know year. Unreliable review of systems, although the patient does appear comfortable and with no specific complaints. PAST MEDICAL AND SURGICAL HISTORY: Heart disease, status post stents; BPH; prostate cancer in 2013, currently on Lupron; diabetes; hypertension; history of cholecystectomy; stents to the heart as well as carpal tunnel repair. FAMILY HISTORY: Significant for cancer. SOCIAL HISTORY: No smoking, no alcohol, no drugs. CURRENT MEDICATIONS: Boost 1 can 3 times a day with meals, senna 1 at night, normal saline at 80 an hour, sliding scale insulin, Colace 100 mg p.o. b.i.d., Protonix 40 mg daily, iron 324 mg p.o. t.i.d. with meals, Lipitor 80 mg at night, multivitamin daily, and vitamin D 1000 units daily. PHYSICAL EXAMINATION: VITAL SIGNS: Temperature 36.5, pulse 70, respiratory rate is 17, blood pressure 132/54, and satting 98% on room air. GENERAL: Awake, alert, and oriented x2. EYES: No scleral icterus. ENT: Mucous membranes are moist. NECK: Supple. PULMONARY: Decreased breath sounds at the bases, although poor inspiratory effort. CARDIAC: Regular rate and rhythm. ABDOMEN: Bowel sounds positive, soft, nontender. EXTREMITIES: No clubbing, cyanosis, or edema. NEUROLOGICAL: Oriented x2. However, following commands. DERMATOLOGIC: No rash or ulcers noted. LABORATORY DATA: Labs are pending for this morning. UA on admission was bland. Creatinine went from 1.31 on the 10th to 1.46 on the 12th of the morning and then to 1.99. Urine cultures negative. Chest x-ray from the 12th shows no acute process. IMPRESSION: 1. Acute kidney injury, on chronic kidney disease stage III with baseline creatinine of 1.1 to 1.2, comes in at 1.31 and last check was up to 1.99. However, urination appears to be improving, tolerating the IV fluids well. Likely, had acute tubular necrosis from hemodynamic compromise with low hemoglobin levels, subsequently transfused and hydrating. Hopefully, creatinine eventually peaks and starts to improve. No indication at this point for dialysis, however, we will follow the labs closely. I would like to obtain a renal ultrasound to be thorough and continue supportive measures. 2. Calcium level has dropped from 9 to 7.5. However, would like to check ionized calcium since albumin levels are likely low as well and may correct to normal. We will see what this morning's labs show. I would continue the low rate of IV fluids, appears to be tolerating it well and with his poor appetite, likely does have an element of volume depletion on top of acute tubular necrosis from hemodynamic compromise in the setting of low hemoglobin levels. Appreciate consultation. MARLEN
[2017-06-23 07:35] LABS: CALCIUM 7.3 mg/dl (8.5-10.1); CREATININE 1.27 mg/dl (0.60-1.40)
[2017-06-23 07:44] LABS: HEMATOCRIT 20.3 % (42-52); HEMOGLOBIN 6.9 g/dL (14.0-18.0); MEAN CELL VOLUME 94.4 fL (80-100); MEAN CORPUSCULAR HEMOGLOBIN 32.1 pg (25-34); MEAN PLATELET VOLUME 9.3 fL (7.4-10.4); PLATELET COUNT 93 K/uL (130-400); RED CELL DISTRIBUTION WIDTH SD 57.7 fL (36.4-46.3); WHITE BLOOD COUNT 5.31 K/uL (4.8-10.8)
[2017-06-23] MEDS: BOOST GLUCOSE CONTROL PO SCH ×3 (07:44→16:52)
[2017-06-23] MEDS: ATORVASTATIN 40 MG TAB PO SCH (07:44)
[2017-06-23] MEDS: CHOLECALCIFEROL 1000 INTER.UNIT TAB PO SCH (07:44)
[2017-06-23] MEDS: DOCUSATE SODIUM 100 MG CAP PO SCH ×2 (07:45→20:51)
[2017-06-23] MEDS: FERROUS GLUCONATE 324 MG TAB PO SCH ×3 (07:45→16:52)
[2017-06-23] MEDS: PANTOprazole SOD 40 MG TAB PO SCH (07:45)
[2017-06-23] MEDS: MULTIVITAMIN TAB PO SCH (07:45)
[2017-06-23] MEDS: SODIUM CHLORIDE 0.9% 1000ML 1,000 ML IV SCH ×2 (07:46→20:54)
--- NOTE | 2017-06-23 08:11 | Orthopedic Progress Note ---
Orthopedic Progress Note Date of Service Jun 23, 2017. Subjective Post OP Day: 2 Additional Notes: Pt lying in bed sleeping. Pt awakens with verbal stimuli but goes back to sleep easily. Does not answer questions. Appears comfortable. Objective calves soft nontender, N/V intact, dressing C/D/I, toes mobile thigh with swelling but not tense. Touching his feet causes him to move his toes/ankles. Date Time Temp Pulse Resp B/P (MAP) Pulse Ox O2 Delivery O2 Flow Rate FiO2 06/23/17 04:00 98 Room Air 06/23/17 03:30 36.5 70 17 132/54 (80) 98 Room Air 06/22/17 23:59 97 Room Air 06/22/17 23:03 37.4 70 17 107/48 (67) 97 Room Air 06/22/17 20:29 36.6 79 16 115/56 (75) 96 Room Air 06/22/17 20:00 93 Room Air 06/22/17 17:00 36.4 76 16 82/44 (57) 93 Room Air 06/22/17 16:00 Room Air 06/22/17 13:36 36.4 78 18 93/62 98 06/22/17 12:36 37.4 74 16 103/60 95 06/22/17 11:59 36.8 74 16 90/51 93 06/22/17 11:48 36.6 93 18 91/48 (62) 98 06/22/17 11:40 37.3 79 16 93/56 93 06/22/17 08:30 37.3 122 89/56 (67) Room Air 2.0 101 68/43 (51) 91 98/55 (69) 06/22/17 08:00 Room Air Laboratory Results 24 Hours: Test 06/22/17 10:42 06/22/17 17:35 06/23/17 06:37 Hematocrit 22.4 % 23.9 % 20.3 % Hemoglobin 7.7 g/dL 8.2 g/dL 6.9 g/dL Assessment & Plan Assessment: POD 2 s/p Left TFN Anemia - Hgb 6.9 this AM Plan: Follow thigh swelling. Anemia - Pt received a total of 3 units PRBC's so far. Transfuse as per Med Service DVT Proph - ADDI's/SCD's; Plavix and ASA on hold for now Inhouse Planning Pain Management: Oxy IR DVT Prophylaxis: TEDs, SCDs, ASA, other (Plavix) Discharge Planning Discharge Planning: uncertain
[2017-06-23] MEDS ORDERED: IRON SUCROSE INJ 200 MG in SODIUM CHLORIDE 0.9% 100ML 100 ML IV ONE (09:00)
--- NOTE | 2017-06-23 10:08 | DIAGNOSTIC IMAGING REPORT ---
(RENAL)RETROPERITON COMP HISTORY: Renal insufficiency mari COMPARISON: None. FINDINGS: Right kidney: Maximum dimension 10.5 cm. No evidence for hydronephrosis. Normal corticomedullary differentiation and cortical thickness. Left kidney: Maximum dimension 10.7 cm. No evidence for hydronephrosis. Normal corticomedullary differentiation and cortical thickness. Bladder: No bladder wall thickening. The bilateral ureteral jets were identified. IMPRESSION: Normal renal ultrasound. The above report was generated using voice recognition software. It may contain grammatical, syntax or spelling errors. Electronically signed by: Barry Drew M.D. 06/23/2017 10:06 AM Dictated Date/Time: 06/23/2017 10:05 AM
--- NOTE | 2017-06-23 11:16 | ECHOCARDIOGRAM REPORT ---
*NOTICE TO RECEIVING CONSTITUTION PARTY AGENCY This information is strictly Confidential and protected under [place] law. [place] law prohibits you from making any further disclosure of this information unless further disclosure is expressly permitted by the written consent of the person to whom it pertains or is authorized by law. A general authorization for the release of medical or other information is not sufficient for this purpose. Hospital accepts no responsibility if the information is made available to any other person, INCLUDING THE PATIENT. Interpretation Summary * Name: BONG ARAGON Study Date: 06/23/2017 06:48 AM BP: 113/55 mmHg * Patient Location: C.2T\S\S229\S\1 HR: 62 * : 1930 (M/d/yyyy) Gender: Male Height: 65 in * Age: 86 yrs Ethnicity: [place] Weight: 190 lb * Ordering Physician: Dina Lawrence * Referring Physician: Self, Referred * Performed By: Mela Gloria RCS * * Reason For Study: CAD / NSTEMI / L HIP FX * BSA: 1.9 m2 * -- Conclusions -- * There is mild concentric left ventricular hypertrophy. * Left ventricular systolic function is normal. * Grade I diastolic dysfunction, (abnormal relaxation pattern). * Compared to study performed in 2016, diastolic function appears to be slightly better. Procedure Details * A complete two-dimensional transthoracic echocardiogram was performed (2D, M-mode, Doppler and color flow Doppler). * The study was technically difficult. * There were technical limitations due to patient'spoor positioning * A contrast injection of Definity was performed to improve assessment of LV function. * Contrast was injected into an intravenous site in the left arm. * One vial of Definity ultrasound contrast was diluted in normal saline to a total volume of 10 ml. A total of '4' ml of solution was administered during imaging. * Lot # [id number] of Definity utilized for procedure. * Expiration date 1 JUN 01. * The attending nurse who injected the contrast agent was SOFIA FARAH, RN. Left Ventricle * The left ventricle is normal in size. * There is mild concentric left ventricular hypertrophy. * Left ventricular systolic function is normal. * Ejection Fraction = 60-65%. * Grade I diastolic dysfunction, (abnormal relaxation pattern). * The left ventricular wall motion is normal. Right Ventricle * The right ventricle is grossly normal size. * The right ventricular systolic function is normal. Atria * The left atrial size is normal. * Right atrial size is normal. Mitral Valve * The mitral valve anatomy is normal. * There is no mitral regurgitation noted. Tricuspid Valve * The tricuspid valve is not well visualized, but is grossly normal. * No tricuspid regurgitation. Aortic Valve * Aortic valve sclerosis mild, without significant aortic valvular stenosis. * No Doppler evaluation of the aortic valve was performed, but 2D images suggest normal opening and the absence of stenosis * There is no significant aortic regurgitation. Great Vessels * The aortic root is normal size. Pericardium/Pleural * There is no pericardial effusion. Great Vessels * Normal inferior vena cava diameter and respiratory variation suggests normal central venous pressure. MMode 2D Measurements and Calculations IVSd 1.3 cm IVSs 1.6 cm LVIDd 4.1 cm LVIDs 3.0 cm LVPWd 1.4 cm LVPWs 1.5 cm IVS/LVPW 0.95 FS 26.2 % EDV(Teich) 74.7 ml ESV(Teich) 36.0 ml EF(Teich) 51.8 % EDV(cubed) 69.5 ml ESV(cubed) 27.9 ml EF(cubed) 59.8 % % IVS thick 27.9 % % LVPW thick 13.7 % LV mass(C)d 198.6 grams LV mass(C)dI 102.6 grams/m\S\2 LV mass(C)s 177.1 grams LV mass(C)sI 91.5 grams/m\S\2 SV(Teich) 38.7 ml SI(Teich) 20.0 ml/m\S\2 SV(cubed) 41.6 ml SI(cubed) 21.5 ml/m\S\2 Ao root diam 3.1 cm Ao root area 7.3 cm\S\2 ACS 2.2 cm LA dimension 3.1 cm LA/Ao 1.0 LVOT diam 2.0 cm LVOT area 3.1 cm\S\2
--- NOTE | 2017-06-23 11:22 | Progress Note ---
Subjective Date of Service: Jun 23, 2017. Subjective Pt evaluation today including: conversation w/ patient, physical exam, lab review, review of studies, review of inpatient medication list Saw/examined the patient in room 229, daughter at bedside. Patient is doing okay, intermittently confused as per daughter. c/o L hip pain and L knee/thigh swelling. Denies chest pain/shortness of breath. Does get dizzy upon standing or sitting up. Problem List Medical Problems: (1) Accidental fall Status: Acute (2) Anemia Status: Acute (3) Closed head injury Status: Acute (4) Dehydration Status: Acute (5) Fracture of proximal end of left femur Status: Acute (6) STEMI (ST elevation myocardial infarction) Status: Acute (7) Weakness Status: Acute Surgical Problems: (1) S/P cholecystectomy Status: Chronic Review of Systems Respiratory: No shortness of breath Cardiac: No chest pain Musculoskeletal: + see HPI, + joint pain, + swelling Medications Current Inpatient Medications Medications (Trade) Dose Ordered Sig/Yudelka Route Start Time Stop Time Status Last Admin Dose Admin Acetaminophen (Tylenol Tab) 1,000 mg Q8 PO 06/21/17 06:00 07/21/17 05:59 06/23/17 05:11 1,000 MG Naloxone HCl (Narcan Inj) 0.1 mg PRN PRN IV 06/21/17 01:15 07/21/17 01:14 Polyethylene (Miralax Powder Packet) 17 gm DAILY PRN PO 06/21/17 01:15 07/21/17 01:14 Aspirin (Ecotrin Tab) 81 mg QAM PO 06/21/17 09:00 07/21/17 08:59 Future Hold 06/22/17 08:03 81 MG Atorvastatin Calcium (Lipitor Tab) 80 mg QAM PO 06/21/17 09:00 07/21/17 08:59 06/23/17 07:44 80 MG Multivitamins (Multivitamin Tab) 1 tab DAILY PO 06/21/17 09:00 07/21/17 08:59 06/23/17 07:45 1 TAB Nitroglycerin (Nitrostat Tab) 0.4 mg UD PRN SL 06/21/17 03:45 07/21/17 03:44 Cholecalciferol (Vitamin D Tab) 1,000 inter.unit QAM PO 3/11/18 09:00 07/21/17 08:59 06/23/17 07:44 1,000 INTER.UNIT Glucose (Glucose 40% Gel) 15-30 GRAMS 15 GRAMS... UD PRN PO 06/21/17 03:45 07/21/17 03:44 Glucose (Glucose Chew Tab) 4-8 Tablets 4 Tabl... UD PRN PO 06/21/17 03:45 07/21/17 03:44 Dextrose (Dextrose 50% 50ML Syringe) 25-50ML OF 50% DW IV FOR... UD PRN IV 06/21/17 03:45 07/21/17 03:44 Glucagon (Glucagon Inj) 1 mg UD PRN SQ 06/21/17 03:45 07/21/17 03:44 Oxycodone HCl (Roxicodone Immediate Rel Tab) 1-2 TABS FOR PAIN 1 TABLET ... Q4H PRN PO 06/21/17 21:15 07/05/17 21:14 Magnesium Hydroxide (Milk Of Magnesia Susp) 30 ml Q6H PRN PO 06/21/17 21:15 07/21/17 21:14 Bisacodyl (Dulcolax Supp) 10 mg DAILY PRN AL 06/21/17 21:15 07/21/17 21:14 Sodium Biphosphate/ Sodium Phosphate (Fleet Enema) 132 ml DAILY PRN AL 06/21/17 21:15 07/21/17 21:14 Senna (Senokot Tab) 17.2 mg HS PO 06/22/17 21:00 07/22/17 20:59 06/22/17 20:26 17.2 MG Docusate Sodium (coLACE CAP) 100 mg BID PO 06/22/17 09:00 07/22/17 08:59 06/23/17 07:45 100 MG Diphenhydramine HCl (Benadryl Inj) 25 mg Q8H PRN IV 06/21/17 21:15 07/21/17 21:14 Al Hydrox/Mg Hydrox/Simethicone (Maalox Max Susp) 15 ml Q4H PRN PO 06/21/17 21:15 07/21/17 21:14 Ondansetron HCl (Zofran Inj) 4 mg Q6H PRN IV 06/21/17 21:15 07/21/17 21:14 Metoclopramide HCl (Reglan Inj) 10 mg Q6H PRN IV 06/21/17 21:15 07/21/17 21:14 Ferrous Gluconate (Ferrous Gluconate Tab) 324 mg TIDM PO 06/22/17 07:30 07/22/17 08:29 06/23/17 07:45 324 MG Pantoprazole Sodium (Protonix Tab) 40 mg QAM PO 06/22/17 09:00 06/25/17 09:01 06/23/17 07:45 40 MG Insulin Aspart (novoLOG ASPART) SLIDING SCALE If C... ACHS SC 06/22/17 16:30 07/22/17 16:29 06/22/17 17:31 1 UNITS Enteral Nutritional Formula (Boost Glucose Control) 1 can TIDM PO 06/23/17 07:30 07/23/17 07:29 06/23/17 07:44 1 CAN Sodium Chloride 1,000 ml @ 80 mls/hr [id number] IV 06/22/17 20:00 07/22/17 19:59 06/23/17 07:46 80 MLS/HR Objective Vital Signs Date Time Temp Pulse Resp B/P (MAP) Pulse Ox O2 Delivery O2 Flow Rate FiO2 06/23/17 08:00 98 Room Air 2.0 06/23/17 07:13 37.3 64 20 113/55 (74) 98 Room Air 06/23/17 04:00 98 Room Air 06/23/17 03:30 36.5 70 17 132/54 (80) 98 Room Air 06/22/17 23:59 97 Room Air 06/22/17 23:03 37.4 70 17 107/48 (67) 97 Room Air 06/22/17 20:29 36.6 79 16 115/56 (75) 96 Room Air 06/22/17 20:00 93 Room Air 06/22/17 17:00 36.4 76 16 82/44 (57) 93 Room Air 06/22/17 16:00 Room Air 06/22/17 13:36 36.4 78 18 93/62 98 06/22/17 12:36 37.4 74 16 103/60 95 06/22/17 11:59 36.8 74 16 90/51 93 06/22/17 11:48 36.6 93 18 91/48 (62) 98 06/22/17 11:40 37.3 79 16 93/56 93 Physical Exam General Appearance: no apparent distress, + pertinent finding (intermittent confusion during exam) Respiratory/Chest: no respiratory distress, no accessory muscle use Cardiovascular: regular rate, rhythm, no edema, no murmur Extremities: + swelling (L thigh swelling), + pertinent finding Neurologic/Psychiatric: alert, + disoriented Laboratory Results Last 24 Hours Test 06/22/17 11:20 06/22/17 11:46 06/22/17 15:52 06/22/17 17:35 Bedside Glucose 231 mg/dl 213 mg/dl Troponin I < 0.015 ng/ml Hemoglobin 8.2 g/dL Hematocrit 23.9 % Sodium Level 135 mmol/L Potassium Level 4.3 mmol/L Chloride Level 103 mmol/L Carbon Dioxide Level 22 mmol/L Anion Gap 10.0 mmol/L Blood Urea Nitrogen 51 mg/dl Creatinine 1.99 mg/dl Est Creatinine Clear Calc Drug Dose 27.9 ml/min Estimated GFR () 34.7 Estimated GFR (Non- 29.9 BUN/Creatinine Ratio 25.6 Random Glucose 193 mg/dl Calcium Level 7.5 mg/dl Test 06/22/17 20:25 06/23/17 06:35 06/23/17 06:37 Bedside Glucose 154 mg/dl 134 mg/dl White Blood Count 5.31 K/uL Red Blood Count 2.15 M/uL Hemoglobin 6.9 g/dL Hematocrit 20.3 % Mean Corpuscular Volume 94.4 fL Mean Corpuscular Hemoglobin 32.1 pg Mean Corpuscular Hemoglobin Concent 34.0 g/dl RDW Standard Deviation 57.7 fL RDW Coefficient of Variation 17.0 % Platelet Count 93 K/uL Mean Platelet Volume 9.3 fL Sodium Level 136 mmol/L Potassium Level 4.0 mmol/L Chloride Level 105 mmol/L Carbon Dioxide Level 26 mmol/L Anion Gap 5.0 mmol/L Blood Urea Nitrogen 44 mg/dl Creatinine 1.27 mg/dl Est Creatinine Clear Calc Drug Dose 43.5 ml/min Estimated GFR () 59.7 Estimated GFR (Non- 51.5 BUN/Creatinine Ratio 34.6 Random Glucose 121 mg/dl Calcium Level 7.3 mg/dl Ionized Calcium 1.05 mmol/l Magnesium Level 2.3 mg/dl Assessment and Plan This is an 86 year old male with a PMH of CAD s/p stents, DM2, hx. of prostate cancer, hx. of anemia - presents with a mechanical fall and L hip fracture, subsequently repaired and now here with ongoing hypotension and anemia. Multifactorial Anemia 06/23 * patient with ongoing anemia; Hgb today (06/23) is 6.9 * patient has received 3 units of pRBCs in total during this admission * going back to previous records, patient has had issues with anemia in the past ; in April 2016, after a cholecystectomy, patient had been anemic and was given IV Venofer - was seen as an outpatient by hematology around that time and was told to stop taking oral iron supplements. Hgb has been stable since * currently, acute blood loss anemia and iron deficiency are playing a part. Will transfuse another unit of pRBC. Will give IV Venofer x1 now. Recheck Hgb 4 hours post-transfusion. * continue to hold Plavix and aspirin Hypotension 06/23 * intermittently hypotensive at rest, orthostatic hypotension, secondary to anemia as above * will continue IVFs 80 mL/hr, transfuse another unit to total 4 units of packed red blood cells * try PT/OT after transfusion, check orthostatics after transfusion * goal is to transfer to SNF/rehab Mechanical Fall s/p L femur repair 06/23 * appreciate orthopedics management * thigh swelling noted today; as per ortho, this is not an unusual swelling, but will continue to monitor * CT of the L hip - no hematoma noted Acute Kidney Injury superimposed on CKD stage 3 06/23 * creatinine at baseline is around 1.0 * creatinine annabel to 1.99 on 06/22 * creatinine is now down to 1.2 - appreciate nephrology input; the blood loss anemia is likely playing a part CAD s/p stenting * hx. of STEMI * severe CAD; takes Plavix, aspirin, NONI-I - no b-peggy due to bradycardia * currently holding Plavix, aspirin due to anemia * holding Lisinopril due to kidney injury * denies any symptoms; troponin negative x3, EKG with no significant changes noted on 06/23 * no need for a cardiology consultation at this time Chronic Diastolic CHF * grade 2 diastolic dysfunction, normal LVEF as per last echo on records * currently dehydrated and will give more fluids and pRBC transfusion * monitor for overload DM2 * hold oral agents, insulin sliding scale DVT ppx * SCDs, restart aspirin BID dosing once anemia is improved FULL CODE
[2017-06-23 19:03] LABS: HEMATOCRIT 23.4 % (42-52)
[2017-06-23] MEDS: SENNA 8.6 MG TAB PO SCH (20:51)
[2017-06-24 03:12] VITALS: BP 147/69; PULSE 70; TEMP 36.5; O2SAT 96
[2017-06-24] MEDS: ACETAMINOPHEN 500 MG TAB PO SCH ×3 (05:13→21:19)
[2017-06-24 05:41] LABS: HEMATOCRIT 25.1 % (42-52); HEMOGLOBIN 8.2 g/dL (14.0-18.0); MEAN CELL VOLUME 95.1 fL (80-100); MEAN CORPUSCULAR HEMOGLOBIN 31.1 pg (25-34); MEAN CORPUSCULAR HGB CONC 32.7 g/dl (32-36); MEAN PLATELET VOLUME 9.7 fL (7.4-10.4); PLATELET COUNT 103 K/uL (130-400); RED CELL DISTRIBUTION WIDTH CV 16.2 % (11.5-14.5); RED CELL DISTRIBUTION WIDTH SD 55.2 fL (36.4-46.3); WHITE BLOOD COUNT 4.82 K/uL (4.8-10.8)
[2017-06-24 06:21] LABS: CALCIUM 7.6 mg/dl (8.5-10.1); CREATININE 0.97 mg/dl (0.60-1.40); POTASSIUM 3.9 mmol/L (3.5-5.1)
[2017-06-24] MEDS: BOOST GLUCOSE CONTROL PO SCH ×3 (07:30→18:17)
[2017-06-24 08:33] VITALS: BP 127/58; PULSE 70; TEMP 36.6; O2SAT 97
[2017-06-24] MEDS: ATORVASTATIN 40 MG TAB PO SCH (08:53)
[2017-06-24] MEDS: MULTIVITAMIN TAB PO SCH (08:53)
[2017-06-24] MEDS: CHOLECALCIFEROL 1000 INTER.UNIT TAB PO SCH (08:53)
[2017-06-24] MEDS: FERROUS GLUCONATE 324 MG TAB PO SCH ×3 (08:53→18:16)
[2017-06-24] MEDS: DOCUSATE SODIUM 100 MG CAP PO SCH ×2 (08:53→20:48)
[2017-06-24] MEDS: PANTOprazole SOD 40 MG TAB PO SCH (08:54)
[2017-06-24] MEDS: INSULIN ASPART 100 UNITS/ML 3 ML PEN SC SCH ×4 (08:57→20:50)
--- NOTE | 2017-06-24 09:10 | Nephrology Progress Note ---
Nephrology Progress Note Date of Service: Jun 24, 2017. Subjective 86 yo male with coleen on ckd stage 3 with creatinine that has peaked and now back to baseline. has required 4 units of blood and a dose of iv venofer as well to help maintain hg levels. pt appears more awake today compared to yesterday. daughter in the room. questions answered. Objective Date Time Temp Pulse Resp B/P (MAP) Pulse Ox O2 Delivery O2 Flow Rate FiO2 06/24/17 03:40 Room Air 06/24/17 03:12 36.5 70 18 147/69 (95) 96 Room Air 06/23/17 23:56 37.6 73 18 126/56 (79) 96 Room Air 06/23/17 23:20 Room Air 06/23/17 20:06 38.2 85 18 143/59 (87) 95 Room Air 06/23/17 20:00 Room Air 06/23/17 16:05 37.9 79 20 158/62 (94) 95 Room Air 06/23/17 16:00 Room Air 06/23/17 13:12 37.4 78 18 130/68 06/23/17 12:26 37.2 77 18 128/63 96 06/23/17 12:00 98 Room Air 2.0 06/23/17 12:00 37.2 85 20 124/68 (86) 98 Room Air 06/23/17 11:32 37.6 75 20 128/63 (84) 94 Room Air 06/23/17 11:26 37.3 66 20 128/76 98 06/23/17 10:56 37.4 76 18 133/76 96 06/23/17 10:43 37.5 83 18 129/64 95 Physical Exam: General-aaox2, more awake Eyes-no scleral icterus ENT-mmm Neck-supple Lungs-cta Heart-rrr Abdomen-bs+ s/nt/nd Extremities-hip bandaged Neuro-nonfocal Current Inpatient Medications Medications (Trade) Dose Ordered Sig/Yudelka Route Start Time Stop Time Status Last Admin Dose Admin Acetaminophen (Tylenol Tab) 1,000 mg Q8 PO 06/21/17 06:00 07/21/17 05:59 06/24/17 05:13 1,000 MG Naloxone HCl (Narcan Inj) 0.1 mg PRN PRN IV 06/21/17 01:15 07/21/17 01:14 Polyethylene (Miralax Powder Packet) 17 gm DAILY PRN PO 06/21/17 01:15 07/21/17 01:14 Aspirin (Ecotrin Tab) 81 mg QAM PO 06/21/17 09:00 07/21/17 08:59 Future Hold 06/22/17 08:03 81 MG Atorvastatin Calcium (Lipitor Tab) 80 mg QAM PO 06/21/17 09:00 07/21/17 08:59 06/23/17 07:44 80 MG Multivitamins (Multivitamin Tab) 1 tab DAILY PO 06/21/17 09:00 07/21/17 08:59 06/23/17 07:45 1 TAB Nitroglycerin (Nitrostat Tab) 0.4 mg UD PRN SL 06/21/17 03:45 07/21/17 03:44 Cholecalciferol (Vitamin D Tab) 1,000 inter.unit QAM PO 06/21/17 09:00 07/21/17 08:59 06/23/17 07:44 1,000 INTER.UNIT Glucose (Glucose 40% Gel) 15-30 GRAMS 15 GRAMS... UD PRN PO 06/21/17 03:45 07/21/17 03:44 Glucose (Glucose Chew Tab) 4-8 Tablets 4 Tabl... UD PRN PO 06/21/17 03:45 07/21/17 03:44 Dextrose (Dextrose 50% 50ML Syringe) 25-50ML OF 50% DW IV FOR... UD PRN IV 06/21/17 03:45 07/21/17 03:44 Glucagon (Glucagon Inj) 1 mg UD PRN SQ 06/21/17 03:45 07/21/17 03:44 Oxycodone HCl (Roxicodone Immediate Rel Tab) 1-2 TABS FOR PAIN 1 TABLET ... Q4H PRN PO 06/21/17 21:15 07/05/17 21:14 Magnesium Hydroxide (Milk Of Magnesia Susp) 30 ml Q6H PRN PO 06/21/17 21:15 07/21/17 21:14 Bisacodyl (Dulcolax Supp) 10 mg DAILY PRN SD 06/21/17 21:15 07/21/17 21:14 Sodium Biphosphate/ Sodium Phosphate (Fleet Enema) 132 ml DAILY PRN SD 06/21/17 21:15 07/21/17 21:14 Senna (Senokot Tab) 17.2 mg HS PO 06/22/17 21:00 07/22/17 20:59 06/23/17 20:51 17.2 MG Docusate Sodium (coLACE CAP) 100 mg BID PO 06/22/17 09:00 07/22/17 08:59 06/23/17 20:51 100 MG Diphenhydramine HCl (Benadryl Inj) 25 mg Q8H PRN IV 06/21/17 21:15 07/21/17 21:14 Al Hydrox/Mg Hydrox/Simethicone (Maalox Max Susp) 15 ml Q4H PRN PO 06/21/17 21:15 07/21/17 21:14 Ondansetron HCl (Zofran Inj) 4 mg Q6H PRN IV 06/21/17 21:15 07/21/17 21:14 Metoclopramide HCl (Reglan Inj) 10 mg Q6H PRN IV 06/21/17 21:15 07/21/17 21:14 Ferrous Gluconate (Ferrous Gluconate Tab) 324 mg TIDM PO 06/22/17 07:30 07/22/17 08:29 06/23/17 16:52 324 MG Pantoprazole Sodium (Protonix Tab) 40 mg QAM PO 06/22/17 09:00 06/25/17 09:01 06/23/17 07:45 40 MG Insulin Aspart (novoLOG ASPART) SLIDING SCALE If C... ACHS SC 06/22/17 16:30 07/22/17 16:29 06/23/17 20:53 1 UNITS Enteral Nutritional Formula (Boost Glucose Control) 1 can TIDM PO 06/23/17 07:30 07/23/17 07:29 06/23/17 16:52 1 CAN Sodium Chloride 1,000 ml @ 80 mls/hr [id number] IV 06/22/17 20:00 07/22/17 19:59 06/23/17 20:54 80 MLS/HR Last 24 Hours Test 06/23/17 11:48 06/23/17 16:37 06/23/17 18:46 06/23/17 20:33 Bedside Glucose 134 mg/dl 126 mg/dl 211 mg/dl Hemoglobin 8.0 g/dL Hematocrit 23.4 % Test 06/24/17 05:12 06/24/17 06:46 White Blood Count 4.82 K/uL Red Blood Count 2.64 M/uL Hemoglobin 8.2 g/dL Hematocrit 25.1 % Mean Corpuscular Volume 95.1 fL Mean Corpuscular Hemoglobin 31.1 pg Mean Corpuscular Hemoglobin Concent 32.7 g/dl RDW Standard Deviation 55.2 fL RDW Coefficient of Variation 16.2 % Platelet Count 103 K/uL Mean Platelet Volume 9.7 fL Sodium Level 139 mmol/L Potassium Level 3.9 mmol/L Chloride Level 107 mmol/L Carbon Dioxide Level 27 mmol/L Anion Gap 5.0 mmol/L Blood Urea Nitrogen 25 mg/dl Creatinine 0.97 mg/dl Est Creatinine Clear Calc Drug Dose 56.3 ml/min Estimated GFR () 82.7 Estimated GFR (Non- 71.4 BUN/Creatinine Ratio 26.1 Random Glucose 121 mg/dl Calcium Level 7.6 mg/dl Magnesium Level 2.3 mg/dl Bedside Glucose 130 mg/dl Assessment & Plan COLEEN-creatinine peaked and improved back to baseline. on iv fluids given episodes of hypotension. bp appears more stable this morning. will stop the iv f luids. Anemia-given another unit of blood. would follow hg levels for another 24 hours documenting stability before considering discharge. hypocalcemia-calcium levels dropped likely from the transfusions. giving one gram of calcium gluconate.
[2017-06-24] MEDS ORDERED: CALCIUM GLUCONATE 10% 1,000 MG in SODIUM CHLORIDE 0.9% 50ML 50 ML IV ONE (09:15)
--- NOTE | 2017-06-24 10:35 | Orthopedic Progress Note ---
Orthopedic Progress Note Date of Service Jun 24, 2017. Subjective Denies: complaints, nausea / vomiting, calf pain Objective calves soft nontender, capillary refill less than 2 sec., incision C/D/I, toes mobile Patient confused. Incision c/d/i, no erythema, no drainage. Date Time Temp Pulse Resp B/P (MAP) Pulse Ox O2 Delivery O2 Flow Rate FiO2 06/24/17 08:33 36.6 70 20 127/58 (81) 97 Room Air 06/24/17 03:40 Room Air 06/24/17 03:12 36.5 70 18 147/69 (95) 96 Room Air 06/23/17 23:56 37.6 73 18 126/56 (79) 96 Room Air 06/23/17 23:20 Room Air 06/23/17 20:06 38.2 85 18 143/59 (87) 95 Room Air 06/23/17 20:00 Room Air 06/23/17 16:05 37.9 79 20 158/62 (94) 95 Room Air 06/23/17 16:00 Room Air 06/23/17 13:12 37.4 78 18 130/68 06/23/17 12:26 37.2 77 18 128/63 96 06/23/17 12:00 98 Room Air 2.0 06/23/17 12:00 37.2 85 20 124/68 (86) 98 Room Air 06/23/17 11:32 37.6 75 20 128/63 (84) 94 Room Air 06/23/17 11:26 37.3 66 20 128/76 98 06/23/17 10:56 37.4 76 18 133/76 96 06/23/17 10:43 37.5 83 18 129/64 95 Laboratory Results 24 Hours: Test 06/23/17 18:46 06/24/17 05:12 Hematocrit 23.4 % 25.1 % Hemoglobin 8.0 g/dL 8.2 g/dL Assessment & Plan Assessment: POD 3 s/p Left TFN Anemia - Hgb 8.2 this AM Plan: Follow thigh swelling- CT negative for hematoma Anemia - Pt received a total of 3 units PRBC's so far. Transfuse as per Med Service DVT Proph - ADDI's/SCD's; Plavix and ASA on hold for now Inhouse Planning Pain Management: Oxy IR DVT Prophylaxis: TEDs, SCDs, ASA, other (Plavix) Discharge Planning Discharge Planning: uncertain
--- NOTE | 2017-06-24 10:59 | DIAGNOSTIC IMAGING REPORT ---
L FEMUR 2 VIEWS ROUTINE HISTORY: 86 years-old Male post-op postoperative exam of the left femur. COMPARISON: Left hip radiographs 06/22/2017 TECHNIQUE: 2 views of the left femur FINDINGS: Intertrochanteric nail with medullary is noted with fixation of the previously described femoral fracture. Alignment is satisfactory. Bone fragments are again seen inferior to the left femoral neck. Lateral skin susanne are noted in addition to expected postsurgical soft tissue swelling and deep tissue air. No acute fracture or subluxation. Peripheral vascular disease. IMPRESSION: Satisfactory alignment of the left hip status post internal fixation. The above report was generated using voice recognition software. It may contain grammatical, syntax or spelling errors. Electronically signed by: Nitish Khalil M.D. 06/24/2017 10:58 AM Dictated Date/Time: 06/24/2017 10:56 AM
[2017-06-24 11:07] VITALS: BP 147/69; PULSE 67; TEMP 36.7; O2SAT 96
--- NOTE | 2017-06-24 12:08 | Progress Note ---
Subjective Date of Service: Jun 24, 2017. Subjective Pt evaluation today including: conversation w/ patient, physical exam, lab review, review of studies, review of inpatient medication list Saw/examined the patient in room 229 He's seated in a chair at bedside; daughter in the room with him Pain controlled; no other issues at this time did have a low grade fever on the evening of 06/23 Denies any chest pain/shortness of breath Problem List Medical Problems: (1) Accidental fall Status: Acute (2) Anemia Status: Acute (3) Closed head injury Status: Acute (4) Dehydration Status: Acute (5) Fracture of proximal end of left femur Status: Acute (6) STEMI (ST elevation myocardial infarction) Status: Acute (7) Weakness Status: Acute Surgical Problems: (1) S/P cholecystectomy Status: Chronic Review of Systems Respiratory: No cough, No sputum, No shortness of breath Cardiac: No chest pain Abdomen: No pain, No nausea, No vomiting, No diarrhea Medications Current Inpatient Medications Medications (Trade) Dose Ordered Sig/Yudelka Route Start Time Stop Time Status Last Admin Dose Admin Acetaminophen (Tylenol Tab) 1,000 mg Q8 PO 06/21/17 06:00 07/21/17 05:59 06/24/17 05:13 1,000 MG Naloxone HCl (Narcan Inj) 0.1 mg PRN PRN IV 06/21/17 01:15 07/21/17 01:14 Polyethylene (Miralax Powder Packet) 17 gm DAILY PRN PO 06/21/17 01:15 07/21/17 01:14 Atorvastatin Calcium (Lipitor Tab) 80 mg QAM PO 06/21/17 09:00 07/21/17 08:59 06/24/17 08:53 80 MG Multivitamins (Multivitamin Tab) 1 tab DAILY PO 06/21/17 09:00 07/21/17 08:59 06/24/17 08:53 1 TAB Nitroglycerin (Nitrostat Tab) 0.4 mg UD PRN SL 06/21/17 03:45 07/21/17 03:44 Cholecalciferol (Vitamin D Tab) 1,000 inter.unit QAM PO 06/21/17 09:00 07/21/17 08:59 06/24/17 08:53 1,000 INTER.UNIT Glucose (Glucose 40% Gel) 15-30 GRAMS 15 GRAMS... UD PRN PO 06/21/17 03:45 07/21/17 03:44 Glucose (Glucose Chew Tab) 4-8 Tablets 4 Tabl... UD PRN PO 06/21/17 03:45 07/21/17 03:44 Dextrose (Dextrose 50% 50ML Syringe) 25-50ML OF 50% DW IV FOR... UD PRN IV 06/21/17 03:45 07/21/17 03:44 Glucagon (Glucagon Inj) 1 mg UD PRN SQ 06/21/17 03:45 07/21/17 03:44 Oxycodone HCl (Roxicodone Immediate Rel Tab) 1-2 TABS FOR PAIN 1 TABLET ... Q4H PRN PO 06/21/17 21:15 07/05/17 21:14 Magnesium Hydroxide (Milk Of Magnesia Susp) 30 ml Q6H PRN PO 06/21/17 21:15 07/21/17 21:14 Bisacodyl (Dulcolax Supp) 10 mg DAILY PRN MO 06/21/17 21:15 07/21/17 21:14 Sodium Biphosphate/ Sodium Phosphate (Fleet Enema) 132 ml DAILY PRN MO 06/21/17 21:15 07/21/17 21:14 Senna (Senokot Tab) 17.2 mg HS PO 06/22/17 21:00 07/22/17 20:59 06/23/17 20:51 17.2 MG Docusate Sodium (coLACE CAP) 100 mg BID PO 06/22/17 09:00 07/22/17 08:59 06/24/17 08:53 100 MG Diphenhydramine HCl (Benadryl Inj) 25 mg Q8H PRN IV 06/21/17 21:15 07/21/17 21:14 Al Hydrox/Mg Hydrox/Simethicone (Maalox Max Susp) 15 ml Q4H PRN PO 06/21/17 21:15 07/21/17 21:14 Ondansetron HCl (Zofran Inj) 4 mg Q6H PRN IV 06/21/17 21:15 07/21/17 21:14 Metoclopramide HCl (Reglan Inj) 10 mg Q6H PRN IV 06/21/17 21:15 07/21/17 21:14 Ferrous Gluconate (Ferrous Gluconate Tab) 324 mg TIDM PO 06/22/17 07:30 07/22/17 08:29 06/24/17 11:50 324 MG Pantoprazole Sodium (Protonix Tab) 40 mg QAM PO 06/22/17 09:00 06/25/17 09:01 06/24/17 08:54 40 MG Insulin Aspart (novoLOG ASPART) SLIDING SCALE If C... ACHS SC 06/22/17 16:30 07/22/17 16:29 06/24/17 11:51 1 UNITS Enteral Nutritional Formula (Boost Glucose Control) 1 can TIDM PO 06/23/17 07:30 07/23/17 07:29 06/23/17 16:52 1 CAN Objective Vital Signs Date Time Temp Pulse Resp B/P (MAP) Pulse Ox O2 Delivery O2 Flow Rate FiO2 06/24/17 08:33 36.6 70 20 127/58 (81) 97 Room Air 06/24/17 08:00 Room Air 06/24/17 03:40 Room Air 06/24/17 03:12 36.5 70 18 147/69 (95) 96 Room Air 06/23/17 23:56 37.6 73 18 126/56 (79) 96 Room Air 06/23/17 23:20 Room Air 06/23/17 20:06 38.2 85 18 143/59 (87) 95 Room Air 06/23/17 20:00 Room Air 06/23/17 16:05 37.9 79 20 158/62 (94) 95 Room Air 06/23/17 16:00 Room Air 06/23/17 13:12 37.4 78 18 130/68 06/23/17 12:26 37.2 77 18 128/63 96 Physical Exam General Appearance: no apparent distress Respiratory/Chest: lungs clear, normal breath sounds, no respiratory distress, no accessory muscle use Cardiovascular: regular rate, rhythm, no murmur Extremities: + swelling (L thigh) Neurologic/Psychiatric: no motor/sensory deficits, alert, normal mood/affect Laboratory Results Last 24 Hours Test 06/23/17 16:37 06/23/17 18:46 06/23/17 20:33 06/24/17 05:12 Bedside Glucose 126 mg/dl 211 mg/dl Hemoglobin 8.0 g/dL 8.2 g/dL Hematocrit 23.4 % 25.1 % White Blood Count 4.82 K/uL Red Blood Count 2.64 M/uL Mean Corpuscular Volume 95.1 fL Mean Corpuscular Hemoglobin 31.1 pg Mean Corpuscular Hemoglobin Concent 32.7 g/dl RDW Standard Deviation 55.2 fL RDW Coefficient of Variation 16.2 % Platelet Count 103 K/uL Mean Platelet Volume 9.7 fL Sodium Level 139 mmol/L Potassium Level 3.9 mmol/L Chloride Level 107 mmol/L Carbon Dioxide Level 27 mmol/L Anion Gap 5.0 mmol/L Blood Urea Nitrogen 25 mg/dl Creatinine 0.97 mg/dl Est Creatinine Clear Calc Drug Dose 56.3 ml/min Estimated GFR () 82.7 Estimated GFR (Non- 71.4 BUN/Creatinine Ratio 26.1 Random Glucose 121 mg/dl Calcium Level 7.6 mg/dl Magnesium Level 2.3 mg/dl Test 06/24/17 06:46 Bedside Glucose 130 mg/dl Assessment and Plan This is an 86 year old male with a PMH of CAD s/p stents, DM2, hx. of prostate cancer, hx. of anemia - presents with a mechanical fall and L hip fracture, subsequently repaired and now here with ongoing hypotension and anemia. Multifactorial Anemia s/p 4 units of pRBCs 06/24 * Hgb is 8.2 this morning * will recheck CBC in AM, if stable, can d/c to SNF/rehab * continue PT/OT * appreciate nephrology input; calcium gluconate given * holding aspirin + Plavix now, will need to restart aspirin prior to discharge to prevent DVTs 06/23 * patient with ongoing anemia; Hgb today (06/23) is 6.9 * patient has received 3 units of pRBCs in total during this admission * going back to previous records, patient has had issues with anemia in the past ; in April 2016, after a cholecystectomy, patient had been anemic and was given IV Venofer - was seen as an outpatient by hematology around that time and was told to stop taking oral iron supplements. Hgb has been stable since * currently, acute blood loss anemia and iron deficiency are playing a part. Will transfuse another unit of pRBC. Will give IV Venofer x1 now. Recheck Hgb 4 hours post-transfusion. * continue to hold Plavix and aspirin Hypotension 06/24 * blood pressure is much improved * now off of IVFs 06/23 * intermittently hypotensive at rest, orthostatic hypotension, secondary to anemia as above * will continue IVFs 80 mL/hr, transfuse another unit to total 4 units of packed red blood cells * try PT/OT after transfusion, check orthostatics after transfusion * goal is to transfer to SNF/rehab Mechanical Fall s/p L femur repair 06/23 * appreciate orthopedics management * thigh swelling noted today; as per ortho, this is not an unusual swelling, but will continue to monitor * CT of the L hip - no hematoma noted Acute Kidney Injury superimposed on CKD stage 3 06/24 * creatinine is less than 1; now off of IVFs * appreciate nephrology input 06/23 * creatinine at baseline is around 1.0 * creatinine annabel to 1.99 on 06/22 * creatinine is now down to 1.2 - appreciate nephrology input; the blood loss anemia is likely playing a part CAD s/p stenting * hx. of STEMI * severe CAD; takes Plavix, aspirin, NONI-I - no b-peggy due to bradycardia * currently holding Plavix, aspirin due to anemia * holding Lisinopril due to kidney injury * denies any symptoms; troponin negative x3, EKG with no significant changes noted on 06/23 * no need for a cardiology consultation at this time Chronic Diastolic CHF * grade 2 diastolic dysfunction, normal LVEF as per last echo on records * currently dehydrated and will give more fluids and pRBC transfusion * monitor for overload DM2 * hold oral agents, insulin sliding scale DVT ppx * SCDs, restart aspirin BID dosing once anemia is improved FULL CODE
[2017-06-24 13:54] VITALS: BP 161/63; PULSE 67; TEMP 37; O2SAT 96
[2017-06-24 15:09] VITALS: BP 153/79; PULSE 70; TEMP 37.1; O2SAT 94
[2017-06-24] MEDS: SENNA 8.6 MG TAB PO SCH (20:48)
[2017-06-24 23:10] VITALS: BP 148/55; PULSE 67; TEMP 37.2; O2SAT 95
[2017-06-25] MEDS: ACETAMINOPHEN 500 MG TAB PO SCH ×3 (05:47→22:08)
[2017-06-25 06:31] LABS: HEMATOCRIT 24.4 % (42-52); MEAN CELL VOLUME 96.4 fL (80-100); MEAN CORPUSCULAR HEMOGLOBIN 31.6 pg (25-34); MEAN CORPUSCULAR HGB CONC 32.8 g/dl (32-36); PLATELET COUNT 108 K/uL (130-400); RED CELL DISTRIBUTION WIDTH CV 15.9 % (11.5-14.5); RED CELL DISTRIBUTION WIDTH SD 54.7 fL (36.4-46.3); WHITE BLOOD COUNT 4.16 K/uL (4.8-10.8)
[2017-06-25 06:55] LABS: CALCIUM 8.1 mg/dl (8.5-10.1); CREATININE 0.81 mg/dl (0.60-1.40); POTASSIUM 3.9 mmol/L (3.5-5.1)
[2017-06-25 07:49] VITALS: BP 160/62; PULSE 62; TEMP 37; O2SAT 95
--- NOTE | 2017-06-25 07:49 | Orthopedic Progress Note ---
Orthopedic Progress Note Date of Service Jun 25, 2017. Subjective Post OP Day: 4 Additional Notes: Pt sleeping upon arrival. Easily awoken. Does not answer some questions. Appears comfortable. Objective calves soft nontender, N/V intact, toes mobile Thigh swollen but not tense. Does not appear any larger than the last time I saw him. Mild serous drainage on dressing which is to be expected with the swelling he has. No overt erythema. Date Time Temp Pulse Resp B/P (MAP) Pulse Ox O2 Delivery O2 Flow Rate FiO2 06/24/17 23:35 Room Air 06/24/17 23:10 37.2 67 18 148/55 (86) 95 Room Air 06/24/17 16:00 Room Air 06/24/17 15:09 37.1 70 18 153/79 (103) 94 Room Air 06/24/17 13:54 37.0 67 18 161/63 (95) 96 Room Air 06/24/17 13:16 36.7 67 20 96 2.0 06/24/17 12:00 Room Air 06/24/17 11:07 36.7 67 20 147/69 (95) 96 06/24/17 08:33 36.6 70 20 127/58 (81) 97 Room Air 06/24/17 08:00 Room Air Laboratory Results 24 Hours: Test 06/25/17 06:11 Hematocrit 24.4 % Hemoglobin 8.0 g/dL Assessment & Plan Assessment: POD 4 s/p Left TFN Anemia - Hgb 8.0 this AM Plan: CT negative for hematoma in the left thigh Anemia - Although hgb is 8, appears to be stabilizing Transfuse as per Med Service DVT Proph - ADDI's/SCD's; Plavix and ASA on hold. Resume as per Med Service. Planning for [facility] vs SNF [facility]TH[facility] WILL SIGN OFF FOR NOW. PLEASE CALL WITH ANY QUESTIONS. Inhouse Planning Pain Management: Oxy IR DVT Prophylaxis: TEDs, SCDs, ASA, other (Plavix) Additional Notes: PLAVIX AND ASA ON HOLD Discharge Planning Discharge Planning: uncertain
--- NOTE | 2017-06-25 07:52 | Consultant Recommendations ---
Supervisor Cytology Recommendations Date of Service Jun 25, 2017. Supervisor Cytology Recommendations [facility] DISCHARGE INSTRUCTIONS: HIP FRACTURE SELF CARE INSTRUCTIONS: A. You are to ambulate with a walker or crutches for approximately 6 weeks. B. You are TOE TOUCH WEIGHT BEARING on your operative lower extremity for at least 6 weeks. C. Wear low heeled shoes with non-slip soles D. Be sure that your floors are free of things that could trip you throw rugs, electrical cords, and small objects. Avoid wet and waxed floors, especially with crutches/walker/cane. E. Try to walk several times a day with rest periods between. F. You may shower 48 hours after surgery and get the incision area wet, but DO NOT soak or submerge incision area in water. (No baths, swimming pools, hot tubs ) G. You may have a large, band-aid like dressing over your incision (Aquacel). This will remain on your incision for 7 days, and then can be removed. You CAN shower with this on. If incision is leaking through the dressing, please call the office . H. Do NOT apply soap or any ointment/lotions directly over incision. I. You may use ice as needed to operative site. SPECIAL CARE INSTRUCTIONS: VERY IMPORTANT TO READ AND REVIEW A. You may be at risk for phlebitis or blood clots. a. Wear surgical stockings (ADDI hose) for 2 weeks after surgery to improve circulation and reduce swelling. b. Take ASPIRIN 81 mg twice daily 4 weeks along with your Plavix daily or as directed. This is your blood thinner. c. If you are on Coumadin- you will have daily/weekly blood work to monitor your levels. This will be done by either your family physician/ submarine element coordinator (if you are on Coumadin chronically) versus your orthopedic surgeon. Expect a phone call the day of or the day after your blood work is drawn to adjust your dose accordingly. B. There are a few signs you need to watch for after you are home. Call [facility] at [phone] if you experience any of the following: a. If you have a temperature of 101 degrees or higher. b. Sudden increase in pain in your hip not relieved by rest or pain medication. c. Any fluid or drainage from the incision; redness of the incision. d. Shortness of breath or chest pain. . C. Call your physician if: a. Temperature is greater than 101 degrees (F). b. Pain is not relieved by prescribed pain medications. c. Increase drainage or redness from incision. d. Unanswered questions or concerns. D. Pain Medication: a. You will be prescribed pain medication upon discharge that should last till your first post-operative appointment. b. If you experience nausea and/or skin rash, discontinue this medication and contact our office for an alternative medication. c. Caution- narcotic pain medication can cause constipation. FOLLOW UP VISIT: Please call [facility] at [phone] to schedule a follow up appointment with Dr Griffin in 10-14 days from the date of your surgery date.
[2017-06-25] MEDS: INSULIN ASPART 100 UNITS/ML 3 ML PEN SC SCH ×4 (08:00→20:41)
[2017-06-25] MEDS: BOOST GLUCOSE CONTROL PO SCH ×3 (08:30→18:28)
[2017-06-25] MEDS: FERROUS GLUCONATE 324 MG TAB PO SCH ×3 (09:31→18:16)
[2017-06-25] MEDS: DOCUSATE SODIUM 100 MG CAP PO SCH ×2 (09:31→20:41)
[2017-06-25] MEDS: PANTOprazole SOD 40 MG TAB PO SCH (09:31)
[2017-06-25] MEDS: CHOLECALCIFEROL 1000 INTER.UNIT TAB PO SCH (09:31)
[2017-06-25] MEDS: ATORVASTATIN 40 MG TAB PO SCH (09:31)
[2017-06-25] MEDS: MULTIVITAMIN TAB PO SCH (09:31)
--- NOTE | 2017-06-25 11:55 | Progress Note ---
Subjective Date of Service: Jun 25, 2017. Subjective Pt evaluation today including: conversation w/ patient, physical exam, lab review, review of studies, review of inpatient medication list Saw/examined the patient in room 352 No problems/issues at this time; he is seated in a chair Denies any pain +constipation Problem List Medical Problems: (1) Accidental fall Status: Acute (2) Anemia Status: Acute (3) Closed head injury Status: Acute (4) Dehydration Status: Acute (5) Fracture of proximal end of left femur Status: Acute (6) STEMI (ST elevation myocardial infarction) Status: Acute (7) Weakness Status: Acute Surgical Problems: (1) S/P cholecystectomy Status: Chronic Review of Systems Constitutional: No fever, No chills Abdomen: + constipation, No pain, No nausea, No vomiting, No diarrhea Heme: No abnormal bleeding/bruising Medications Current Inpatient Medications Medications (Trade) Dose Ordered Sig/Yudelka Route Start Time Stop Time Status Last Admin Dose Admin Acetaminophen (Tylenol Tab) 1,000 mg Q8 PO 06/21/17 06:00 07/21/17 05:59 06/25/17 05:47 1,000 MG Naloxone HCl (Narcan Inj) 0.1 mg PRN PRN IV 06/21/17 01:15 07/21/17 01:14 Polyethylene (Miralax Powder Packet) 17 gm DAILY PRN PO 06/21/17 01:15 07/21/17 01:14 Atorvastatin Calcium (Lipitor Tab) 80 mg QAM PO 06/21/17 09:00 07/21/17 08:59 06/25/17 09:31 80 MG Multivitamins (Multivitamin Tab) 1 tab DAILY PO 06/21/17 09:00 07/21/17 08:59 06/25/17 09:31 1 TAB Nitroglycerin (Nitrostat Tab) 0.4 mg UD PRN SL 06/21/17 03:45 07/21/17 03:44 Cholecalciferol (Vitamin D Tab) 1,000 inter.unit QAM PO 06/21/17 09:00 07/21/17 08:59 06/25/17 09:31 1,000 INTER.UNIT Glucose (Glucose 40% Gel) 15-30 GRAMS 15 GRAMS... UD PRN PO 06/21/17 03:45 07/21/17 03:44 Glucose (Glucose Chew Tab) 4-8 Tablets 4 Tabl... UD PRN PO 06/21/17 03:45 07/21/17 03:44 Dextrose (Dextrose 50% 50ML Syringe) 25-50ML OF 50% DW IV FOR... UD PRN IV 06/21/17 03:45 07/21/17 03:44 Glucagon (Glucagon Inj) 1 mg UD PRN SQ 06/21/17 03:45 07/21/17 03:44 Oxycodone HCl (Roxicodone Immediate Rel Tab) 1-2 TABS FOR PAIN 1 TABLET ... Q4H PRN PO 06/21/17 21:15 07/05/17 21:14 Magnesium Hydroxide (Milk Of Magnesia Susp) 30 ml Q6H PRN PO 06/21/17 21:15 07/21/17 21:14 Bisacodyl (Dulcolax Supp) 10 mg DAILY PRN MT 06/21/17 21:15 07/21/17 21:14 Sodium Biphosphate/ Sodium Phosphate (Fleet Enema) 132 ml DAILY PRN MT 06/21/17 21:15 07/21/17 21:14 Senna (Senokot Tab) 17.2 mg HS PO 06/22/17 21:00 07/22/17 20:59 06/24/17 20:48 17.2 MG Docusate Sodium (coLACE CAP) 100 mg BID PO 06/22/17 09:00 07/22/17 08:59 06/25/17 09:31 100 MG Diphenhydramine HCl (Benadryl Inj) 25 mg Q8H PRN IV 06/21/17 21:15 07/21/17 21:14 Al Hydrox/Mg Hydrox/Simethicone (Maalox Max Susp) 15 ml Q4H PRN PO 06/21/17 21:15 07/21/17 21:14 Ondansetron HCl (Zofran Inj) 4 mg Q6H PRN IV 06/21/17 21:15 07/21/17 21:14 Metoclopramide HCl (Reglan Inj) 10 mg Q6H PRN IV 06/21/17 21:15 07/21/17 21:14 Ferrous Gluconate (Ferrous Gluconate Tab) 324 mg TIDM PO 06/22/17 07:30 07/22/17 08:29 06/25/17 09:31 324 MG Insulin Aspart (novoLOG ASPART) SLIDING SCALE If C... ACHS SC 06/22/17 16:30 07/22/17 16:29 06/24/17 20:50 1 UNITS Enteral Nutritional Formula (Boost Glucose Control) 1 can TIDM PO 06/23/17 07:30 07/23/17 07:29 06/24/17 18:17 1 CAN Objective Vital Signs Date Time Temp Pulse Resp B/P (MAP) Pulse Ox O2 Delivery O2 Flow Rate FiO2 06/25/17 09:21 Room Air 06/25/17 07:49 37.0 62 16 160/62 (94) 95 Room Air 06/24/17 23:35 Room Air 06/24/17 23:10 37.2 67 18 148/55 (86) 95 Room Air 06/24/17 16:00 Room Air 06/24/17 15:09 37.1 70 18 153/79 (103) 94 Room Air 06/24/17 13:54 37.0 67 18 161/63 (95) 96 Room Air 06/24/17 13:16 36.7 67 20 96 2.0 06/24/17 12:00 Room Air Physical Exam General Appearance: no apparent distress Respiratory/Chest: chest non-tender, lungs clear, normal breath sounds, no respiratory distress, no accessory muscle use Cardiovascular: regular rate, rhythm, no edema, no murmur Extremities: non-tender, normal inspection, no pedal edema Neurologic/Psychiatric: no motor/sensory deficits, alert, normal mood/affect Laboratory Results Last 24 Hours Test 06/24/17 17:02 06/24/17 20:37 06/25/17 06:11 Bedside Glucose 125 mg/dl 201 mg/dl White Blood Count 4.16 K/uL Red Blood Count 2.53 M/uL Hemoglobin 8.0 g/dL Hematocrit 24.4 % Mean Corpuscular Volume 96.4 fL Mean Corpuscular Hemoglobin 31.6 pg Mean Corpuscular Hemoglobin Concent 32.8 g/dl RDW Standard Deviation 54.7 fL RDW Coefficient of Variation 15.9 % Platelet Count 108 K/uL Mean Platelet Volume 10.0 fL Sodium Level 138 mmol/L Potassium Level 3.9 mmol/L Chloride Level 105 mmol/L Carbon Dioxide Level 29 mmol/L Anion Gap 5.0 mmol/L Blood Urea Nitrogen 17 mg/dl Creatinine 0.81 mg/dl Est Creatinine Clear Calc Drug Dose 67.4 ml/min Estimated GFR () 94.6 Estimated GFR (Non- 81.6 BUN/Creatinine Ratio 21.1 Random Glucose 123 mg/dl Calcium Level 8.1 mg/dl Magnesium Level 2.2 mg/dl Assessment and Plan This is an 86 year old male with a PMH of CAD s/p stents, DM2, hx. of prostate cancer, hx. of anemia - presents with a mechanical fall and L hip fracture, subsequently repaired and now here with ongoing hypotension and anemia. Multifactorial Anemia s/p 4 units of pRBCs 06/25 * Hgb stable at around 8.0 this morning * can likely d/c to [facility] today * restart aspirin on discharge for DVT ppx * CBC in one week as outpatient 06/24 * Hgb is 8.2 this morning * will recheck CBC in AM, if stable, can d/c to SNF/rehab * continue PT/OT * appreciate nephrology input; calcium gluconate given * holding aspirin + Plavix now, will need to restart aspirin prior to discharge to prevent DVTs 06/23 * patient with ongoing anemia; Hgb today (06/23) is 6.9 * patient has received 3 units of pRBCs in total during this admission * going back to previous records, patient has had issues with anemia in the past ; in April 2016, after a cholecystectomy, patient had been anemic and was given IV Venofer - was seen as an outpatient by hematology around that time and was told to stop taking oral iron supplements. Hgb has been stable since * currently, acute blood loss anemia and iron deficiency are playing a part. Will transfuse another unit of pRBC. Will give IV Venofer x1 now. Recheck Hgb 4 hours post-transfusion. * continue to hold Plavix and aspirin Hypotension - resolved 06/24 * blood pressure is much improved * now off of IVFs 06/23 * intermittently hypotensive at rest, orthostatic hypotension, secondary to anemia as above * will continue IVFs 80 mL/hr, transfuse another unit to total 4 units of packed red blood cells * try PT/OT after transfusion, check orthostatics after transfusion * goal is to transfer to SNF/rehab Mechanical Fall s/p L femur repair 06/23 * appreciate orthopedics management * thigh swelling noted today; as per ortho, this is not an unusual swelling, but will continue to monitor * CT of the L hip - no hematoma noted Acute Kidney Injury superimposed on CKD stage 3 - resolved 06/24 * creatinine is less than 1; now off of IVFs * appreciate nephrology input 06/23 * creatinine at baseline is around 1.0 * creatinine annabel to 1.99 on 06/22 * creatinine is now down to 1.2 - appreciate nephrology input; the blood loss anemia is likely playing a part CAD s/p stenting * hx. of STEMI * severe CAD; takes Plavix, aspirin, NONI-I - no b-peggy due to bradycardia * currently holding Plavix, aspirin due to anemia * holding Lisinopril due to kidney injury * denies any symptoms; troponin negative x3, EKG with no significant changes noted on 06/23 * no need for a cardiology consultation at this time Chronic Diastolic CHF * grade 2 diastolic dysfunction, normal LVEF as per last echo on records * currently dehydrated and will give more fluids and pRBC transfusion * monitor for overload DM2 * hold oral agents, insulin sliding scale DVT ppx * SCDs, restart aspirin BID dosing once anemia is improved FULL CODE
[2017-06-25] MEDS ORDERED: POLYETHYLENE (MIRALAX) 17 GM PACK PO ONE (12:00)
[2017-06-25 15:21] VITALS: BP 150/62; PULSE 63; TEMP 36.3; O2SAT 97
[2017-06-25 16:00] VITALS: O2SAT 97
[2017-06-25] MEDS: SENNA 8.6 MG TAB PO SCH (20:41)
[2017-06-25 22:52] VITALS: BP 129/56; PULSE 64; TEMP 37.5; O2SAT 94
[2017-06-26] MEDS: ACETAMINOPHEN 500 MG TAB PO SCH ×3 (05:42→21:56)
[2017-06-26 07:51] VITALS: BP 120/56; PULSE 59; TEMP 36.8; O2SAT 95
[2017-06-26 08:03] VITALS: O2SAT 95
[2017-06-26 09:08] LABS: HEMATOCRIT 26.3 % (42-52); HEMOGLOBIN 8.9 g/dL (14.0-18.0); MEAN CELL VOLUME 95.6 fL (80-100); MEAN CORPUSCULAR HEMOGLOBIN 32.4 pg (25-34); MEAN CORPUSCULAR HGB CONC 33.8 g/dl (32-36); MEAN PLATELET VOLUME 9.6 fL (7.4-10.4); PLATELET COUNT 134 K/uL (130-400); RED CELL DISTRIBUTION WIDTH CV 16.4 % (11.5-14.5); RED CELL DISTRIBUTION WIDTH SD 54.8 fL (36.4-46.3); WHITE BLOOD COUNT 4.78 K/uL (4.8-10.8)
[2017-06-26] MEDS: ATORVASTATIN 40 MG TAB PO SCH (09:13)
[2017-06-26] MEDS: CHOLECALCIFEROL 1000 INTER.UNIT TAB PO SCH (09:13)
[2017-06-26] MEDS: MULTIVITAMIN TAB PO SCH (09:13)
[2017-06-26] MEDS: FERROUS GLUCONATE 324 MG TAB PO SCH ×3 (09:13→18:07)
[2017-06-26] MEDS: DOCUSATE SODIUM 100 MG CAP PO SCH ×2 (09:13→21:55)
[2017-06-26] MEDS: INSULIN ASPART 100 UNITS/ML 3 ML PEN SC SCH ×4 (09:20→22:03)
[2017-06-26] MEDS: BOOST GLUCOSE CONTROL PO SCH ×3 (09:22→18:07)
[2017-06-26 09:48] LABS: CALCIUM 8.4 mg/dl (8.5-10.1); CREATININE 0.82 mg/dl (0.60-1.40); POTASSIUM 3.9 mmol/L (3.5-5.1)
[2017-06-26 15:56] VITALS: BP 138/68; PULSE 69; TEMP 37; O2SAT 94
--- NOTE | 2017-06-26 16:53 | Progress Note ---
Subjective Date of Service: Jun 26, 2017. Subjective Pt evaluation today including: conversation w/ patient, physical exam, lab review, review of studies, review of inpatient medication list Saw/examined the patient in room 352 He is doing better tells me while he was seated, someone stepped on his foot; but pain improved after oxycodone No other issues at this time daughter tells me that they prefer [facility] Problem List Medical Problems: (1) Accidental fall Status: Acute (2) Anemia Status: Acute (3) Closed head injury Status: Acute (4) Dehydration Status: Acute (5) Fracture of proximal end of left femur Status: Acute (6) STEMI (ST elevation myocardial infarction) Status: Acute (7) Weakness Status: Acute Surgical Problems: (1) S/P cholecystectomy Status: Chronic Review of Systems Constitutional: No fever, No chills Respiratory: No shortness of breath Cardiac: No chest pain Musculoskeletal: + joint pain (controlled with medications) Heme: No abnormal bleeding/bruising Medications Current Inpatient Medications Medications (Trade) Dose Ordered Sig/Yudelka Route Start Time Stop Time Status Last Admin Dose Admin Acetaminophen (Tylenol Tab) 1,000 mg Q8 PO 06/21/17 06:00 07/21/17 05:59 06/26/17 13:33 1,000 MG Naloxone HCl (Narcan Inj) 0.1 mg PRN PRN IV 06/21/17 01:15 07/21/17 01:14 Polyethylene (Miralax Powder Packet) 17 gm DAILY PRN PO 06/21/17 01:15 07/21/17 01:14 Atorvastatin Calcium (Lipitor Tab) 80 mg QAM PO 06/21/17 09:00 07/21/17 08:59 06/26/17 09:13 80 MG Multivitamins (Multivitamin Tab) 1 tab DAILY PO 06/21/17 09:00 07/21/17 08:59 06/26/17 09:13 1 TAB Nitroglycerin (Nitrostat Tab) 0.4 mg UD PRN SL 06/21/17 03:45 07/21/17 03:44 Cholecalciferol (Vitamin D Tab) 1,000 inter.unit QAM PO 06/21/17 09:00 07/21/17 08:59 06/26/17 09:13 1,000 INTER.UNIT Glucose (Glucose 40% Gel) 15-30 GRAMS 15 GRAMS... UD PRN PO 06/21/17 03:45 07/21/17 03:44 Glucose (Glucose Chew Tab) 4-8 Tablets 4 Tabl... UD PRN PO 06/21/17 03:45 07/21/17 03:44 Dextrose (Dextrose 50% 50ML Syringe) 25-50ML OF 50% DW IV FOR... UD PRN IV 06/21/17 03:45 07/21/17 03:44 Glucagon (Glucagon Inj) 1 mg UD PRN SQ 06/21/17 03:45 07/21/17 03:44 Oxycodone HCl (Roxicodone Immediate Rel Tab) 1-2 TABS FOR PAIN 1 TABLET ... Q4H PRN PO 06/21/17 21:15 07/05/17 21:14 06/26/17 13:52 5 MG Magnesium Hydroxide (Milk Of Magnesia Susp) 30 ml Q6H PRN PO 06/21/17 21:15 07/21/17 21:14 Bisacodyl (Dulcolax Supp) 10 mg DAILY PRN [place] 06/21/17 21:15 07/21/17 21:14 Sodium Biphosphate/ Sodium Phosphate (Fleet Enema) 132 ml DAILY PRN [place] 06/21/17 21:15 07/21/17 21:14 Senna (Senokot Tab) 17.2 mg HS PO 06/22/17 21:00 07/22/17 20:59 06/25/17 20:41 17.2 MG Docusate Sodium (coLACE CAP) 100 mg BID PO 06/22/17 09:00 07/22/17 08:59 06/26/17 09:13 100 MG Diphenhydramine HCl (Benadryl Inj) 25 mg Q8H PRN IV 06/21/17 21:15 07/21/17 21:14 Al Hydrox/Mg Hydrox/Simethicone (Maalox Max Susp) 15 ml Q4H PRN PO 06/21/17 21:15 07/21/17 21:14 Ondansetron HCl (Zofran Inj) 4 mg Q6H PRN IV 06/21/17 21:15 07/21/17 21:14 Metoclopramide HCl (Reglan Inj) 10 mg Q6H PRN IV 06/21/17 21:15 07/21/17 21:14 Ferrous Gluconate (Ferrous Gluconate Tab) 324 mg TIDM PO 06/22/17 07:30 07/22/17 08:29 06/26/17 13:32 324 MG Insulin Aspart (novoLOG ASPART) SLIDING SCALE If C... ACHS SC 06/22/17 16:30 07/22/17 16:29 06/26/17 13:36 3 UNITS Enteral Nutritional Formula (Boost Glucose Control) 1 can TIDM PO 06/23/17 07:30 07/23/17 07:29 06/26/17 09:22 1 CAN Objective Vital Signs Date Time Temp Pulse Resp B/P (MAP) Pulse Ox O2 Delivery O2 Flow Rate FiO2 06/26/17 15:56 37.0 69 18 138/68 (91) 94 Room Air 06/26/17 08:03 95 Room Air 06/26/17 07:51 36.8 59 16 120/56 (77) 95 Room Air 06/26/17 07:40 Room Air 06/25/17 23:35 Room Air 06/25/17 22:52 37.5 64 16 129/56 (80) 94 Room Air Physical Exam General Appearance: no apparent distress Respiratory/Chest: chest non-tender, lungs clear, normal breath sounds, no respiratory distress, no accessory muscle use Cardiovascular: regular rate, rhythm, no murmur Abdomen: normal bowel sounds, non tender, soft Extremities: normal inspection, no pedal edema Neurologic/Psychiatric: no motor/sensory deficits, alert, normal mood/affect Laboratory Results Last 24 Hours Test 06/25/17 17:03 06/25/17 20:32 06/26/17 08:04 06/26/17 08:50 Bedside Glucose 120 mg/dl 179 mg/dl 123 mg/dl White Blood Count 4.78 K/uL Red Blood Count 2.75 M/uL Hemoglobin 8.9 g/dL Hematocrit 26.3 % Mean Corpuscular Volume 95.6 fL Mean Corpuscular Hemoglobin 32.4 pg Mean Corpuscular Hemoglobin Concent 33.8 g/dl RDW Standard Deviation 54.8 fL RDW Coefficient of Variation 16.4 % Platelet Count 134 K/uL Mean Platelet Volume 9.6 fL Sodium Level 138 mmol/L Potassium Level 3.9 mmol/L Chloride Level 105 mmol/L Carbon Dioxide Level 27 mmol/L Anion Gap 6.0 mmol/L Blood Urea Nitrogen 18 mg/dl Creatinine 0.82 mg/dl Est Creatinine Clear Calc Drug Dose 66.6 ml/min Estimated GFR () 94.1 Estimated GFR (Non- 81.2 BUN/Creatinine Ratio 22.3 Random Glucose 122 mg/dl Calcium Level 8.4 mg/dl Magnesium Level 2.2 mg/dl Test 06/26/17 11:38 Bedside Glucose 154 mg/dl Assessment and Plan This is an 86 year old male with a PMH of CAD s/p stents, DM2, hx. of prostate cancer, hx. of anemia - presents with a mechanical fall and L hip fracture, subsequently repaired and now here with ongoing hypotension and anemia. * patient's family currently in the process of appealing decision by insurance; they prefer patient to go to [facility] for acute rehab Multifactorial Anemia s/p 4 units of pRBCs 06/26 * Hgb up to 8.9 * stable in terms of anemia, no symptoms 06/25 * Hgb stable at around 8.0 this morning * can likely d/c to [facility] today * restart aspirin on discharge for DVT ppx * CBC in one week as outpatient 06/24 * Hgb is 8.2 this morning * will recheck CBC in AM, if stable, can d/c to SNF/rehab * continue PT/OT * appreciate nephrology input; calcium gluconate given * holding aspirin + Plavix now, will need to restart aspirin prior to discharge to prevent DVTs 06/23 * patient with ongoing anemia; Hgb today (06/23) is 6.9 * patient has received 3 units of pRBCs in total during this admission * going back to previous records, patient has had issues with anemia in the past ; in April 2016, after a cholecystectomy, patient had been anemic and was given IV Venofer - was seen as an outpatient by hematology around that time and was told to stop taking oral iron supplements. Hgb has been stable since * currently, acute blood loss anemia and iron deficiency are playing a part. Will transfuse another unit of pRBC. Will give IV Venofer x1 now. Recheck Hgb 4 hours post-transfusion. * continue to hold Plavix and aspirin Hypotension - resolved 06/24 * blood pressure is much improved * now off of IVFs 06/23 * intermittently hypotensive at rest, orthostatic hypotension, secondary to anemia as above * will continue IVFs 80 mL/hr, transfuse another unit to total 4 units of packed red blood cells * try PT/OT after transfusion, check orthostatics after transfusion * goal is to transfer to SNF/rehab Mechanical Fall s/p L femur repair 06/26 * stable for discharge, toe touch only on the L side 06/23 * appreciate orthopedics management * thigh swelling noted today; as per ortho, this is not an unusual swelling, but will continue to monitor * CT of the L hip - no hematoma noted Acute Kidney Injury superimposed on CKD stage 3 - resolved 06/24 * creatinine is less than 1; now off of IVFs * appreciate nephrology input 06/23 * creatinine at baseline is around 1.0 * creatinine annabel to 1.99 on 06/22 * creatinine is now down to 1.2 - appreciate nephrology input; the blood loss anemia is likely playing a part CAD s/p stenting * hx. of STEMI * severe CAD; takes Plavix, aspirin, ONNI-I - no b-peggy due to bradycardia * currently holding Plavix, aspirin due to anemia * holding Lisinopril due to kidney injury * denies any symptoms; troponin negative x3, EKG with no significant changes noted on 06/23 * no need for a cardiology consultation at this time Chronic Diastolic CHF * grade 2 diastolic dysfunction, normal LVEF as per last echo on records * currently dehydrated and will give more fluids and pRBC transfusion * monitor for overload DM2 * hold oral agents, insulin sliding scale DVT ppx * SCDs, restart aspirin BID dosing once anemia is improved FULL CODE
[2017-06-26] MEDS: SENNA 8.6 MG TAB PO SCH (21:55)
[2017-06-26 23:00] VITALS: BP 121/62; PULSE 78; TEMP 36.8; O2SAT 93
[2017-06-27] MEDS: ACETAMINOPHEN 500 MG TAB PO SCH ×3 (05:30→21:12)
[2017-06-27 06:58] VITALS: BP 148/65; PULSE 70; TEMP 37; O2SAT 95
[2017-06-27] MEDS: CHOLECALCIFEROL 1000 INTER.UNIT TAB PO SCH (09:19)
[2017-06-27] MEDS: BOOST GLUCOSE CONTROL PO SCH ×3 (09:19→18:14)
[2017-06-27] MEDS: DOCUSATE SODIUM 100 MG CAP PO SCH ×2 (09:19→21:12)
[2017-06-27] MEDS: FERROUS GLUCONATE 324 MG TAB PO SCH ×3 (09:19→18:11)
[2017-06-27] MEDS: MULTIVITAMIN TAB PO SCH (09:19)
[2017-06-27] MEDS: ATORVASTATIN 40 MG TAB PO SCH (09:20)
[2017-06-27] MEDS: INSULIN ASPART 100 UNITS/ML 3 ML PEN SC SCH ×4 (09:26→21:14)
[2017-06-27 15:13] VITALS: BP 165/67; PULSE 73; TEMP 36.7; O2SAT 97
--- NOTE | 2017-06-27 17:27 | Progress Note ---
Subjective Date of Service: Jun 27, 2017. Subjective Pt evaluation today including: conversation w/ patient, conversation w/ family , physical exam, lab review, review of studies, review of inpatient medication list Saw/examined the patient in room 352 He's doing well, states his pain is controlled laying comfortably, watching TV spoke with the daughter on the phone; she is upset regarding discharge planning ; but agreeable to wait until Thursday for SNF discharge No other updates to note at this time Problem List Medical Problems: (1) Accidental fall Status: Acute (2) Anemia Status: Acute (3) Closed head injury Status: Acute (4) Dehydration Status: Acute (5) Fracture of proximal end of left femur Status: Acute (6) STEMI (ST elevation myocardial infarction) Status: Acute (7) Weakness Status: Acute Surgical Problems: (1) S/P cholecystectomy Status: Chronic Review of Systems Constitutional: No fever, No chills Respiratory: No shortness of breath Cardiac: No chest pain Abdomen: No pain, No nausea, No vomiting, No diarrhea, No constipation Musculoskeletal: + swelling, No joint pain Medications Current Inpatient Medications Medications (Trade) Dose Ordered Sig/Yudelka Route Start Time Stop Time Status Last Admin Dose Admin Acetaminophen (Tylenol Tab) 1,000 mg Q8 PO 06/21/17 06:00 07/21/17 05:59 06/27/17 13:24 1,000 MG Naloxone HCl (Narcan Inj) 0.1 mg PRN PRN IV 06/21/17 01:15 07/21/17 01:14 Polyethylene (Miralax Powder Packet) 17 gm DAILY PRN PO 06/21/17 01:15 07/21/17 01:14 Atorvastatin Calcium (Lipitor Tab) 80 mg QAM PO 06/21/17 09:00 07/21/17 08:59 06/27/17 09:20 80 MG Multivitamins (Multivitamin Tab) 1 tab DAILY PO 06/21/17 09:00 07/21/17 08:59 06/27/17 09:19 1 TAB Nitroglycerin (Nitrostat Tab) 0.4 mg UD PRN SL 06/21/17 03:45 07/21/17 03:44 Cholecalciferol (Vitamin D Tab) 1,000 inter.unit QAM PO 06/21/17 09:00 07/21/17 08:59 06/27/17 09:19 1,000 INTER.UNIT Glucose (Glucose 40% Gel) 15-30 GRAMS 15 GRAMS... UD PRN PO 06/21/17 03:45 07/21/17 03:44 Glucose (Glucose Chew Tab) 4-8 Tablets 4 Tabl... UD PRN PO 06/21/17 03:45 07/21/17 03:44 Dextrose (Dextrose 50% 50ML Syringe) 25-50ML OF 50% DW IV FOR... UD PRN IV 06/21/17 03:45 07/21/17 03:44 Glucagon (Glucagon Inj) 1 mg UD PRN SQ 06/21/17 03:45 07/21/17 03:44 Oxycodone HCl (Roxicodone Immediate Rel Tab) 1-2 TABS FOR PAIN 1 TABLET ... Q4H PRN PO 06/21/17 21:15 07/05/17 21:14 06/26/17 13:52 5 MG Magnesium Hydroxide (Milk Of Magnesia Susp) 30 ml Q6H PRN PO 06/21/17 21:15 07/21/17 21:14 Bisacodyl (Dulcolax Supp) 10 mg DAILY PRN [place] 06/21/17 21:15 07/21/17 21:14 Sodium Biphosphate/ Sodium Phosphate (Fleet Enema) 132 ml DAILY PRN [place] 06/21/17 21:15 07/21/17 21:14 Senna (Senokot Tab) 17.2 mg HS PO 06/22/17 21:00 07/22/17 20:59 06/26/17 21:55 17.2 MG Docusate Sodium (coLACE CAP) 100 mg BID PO 06/22/17 09:00 07/22/17 08:59 06/27/17 09:19 100 MG Diphenhydramine HCl (Benadryl Inj) 25 mg Q8H PRN IV 06/21/17 21:15 07/21/17 21:14 Al Hydrox/Mg Hydrox/Simethicone (Maalox Max Susp) 15 ml Q4H PRN PO 06/21/17 21:15 07/21/17 21:14 Ondansetron HCl (Zofran Inj) 4 mg Q6H PRN IV 06/21/17 21:15 07/21/17 21:14 Metoclopramide HCl (Reglan Inj) 10 mg Q6H PRN IV 06/21/17 21:15 07/21/17 21:14 Ferrous Gluconate (Ferrous Gluconate Tab) 324 mg TIDM PO 06/22/17 07:30 07/22/17 08:29 06/27/17 13:23 324 MG Insulin Aspart (novoLOG ASPART) SLIDING SCALE If C... ACHS SC 06/22/17 16:30 07/22/17 16:29 06/27/17 09:26 2 UNITS Enteral Nutritional Formula (Boost Glucose Control) 1 can TIDM PO 06/23/17 07:30 07/23/17 07:29 06/26/17 18:07 1 CAN Objective Vital Signs Date Time Temp Pulse Resp B/P (MAP) Pulse Ox O2 Delivery O2 Flow Rate FiO2 06/27/17 15:36 Room Air 06/27/17 15:13 36.7 73 18 165/67 (99) 97 Room Air 06/27/17 07:45 Room Air 06/27/17 06:58 37.0 70 16 148/65 (92) 95 Room Air 06/26/17 23:45 Room Air 06/26/17 23:00 36.8 78 16 121/62 (81) 93 Room Air Physical Exam General Appearance: no apparent distress Respiratory/Chest: chest non-tender, lungs clear, normal breath sounds, no respiratory distress, no accessory muscle use Cardiovascular: regular rate, rhythm, no murmur Extremities: + swelling (L thigh swelling, improving), + pertinent finding Laboratory Results Last 24 Hours Test 06/26/17 20:31 06/27/17 08:14 06/27/17 11:51 Bedside Glucose 196 mg/dl 124 mg/dl 142 mg/dl Assessment and Plan This is an 86 year old male with a PMH of CAD s/p stents, DM2, hx. of prostate cancer, hx. of anemia - presents with a mechanical fall and L hip fracture, subsequently repaired and now here with ongoing hypotension and anemia. Update for 06/27 * family initially did not want patient to go to [facility] - appealing [facility] for [facility] * she is now agreeable to discharge patient to [facility] while waiting on the appeal; unfortunately, [facility] is unable to take the patient over the weekend * spoke with daughter, gave her the update; plan for d/c on Thursday * clinically stable; will recheck labs in AM 06/26 * patient's family currently in the process of appealing decision by insurance; they prefer [facility] Multifactorial Anemia s/p 4 units of pRBCs 06/26 * Hgb up to 8.9 * stable in terms of anemia, no symptoms 06/25 * Hgb stable at around 8.0 this morning * can likely d/c to [facility] vs. [facility] today * restart aspirin on discharge for DVT ppx * CBC in one week as outpatient 06/24 * Hgb is 8.2 this morning * will recheck CBC in AM, if stable, can d/c to SNF/rehab * continue PT/OT * appreciate nephrology input; calcium gluconate given * holding aspirin + Plavix now, will need to restart aspirin prior to discharge to prevent DVTs 06/23 * patient with ongoing anemia; Hgb today (06/23) is 6.9 * patient has received 3 units of pRBCs in total during this admission * going back to previous records, patient has had issues with anemia in the past ; in April 2016, after a cholecystectomy, patient had been anemic and was given IV Venofer - was seen as an outpatient by hematology around that time and was told to stop taking oral iron supplements. Hgb has been stable since * currently, acute blood loss anemia and iron deficiency are playing a part. Will transfuse another unit of pRBC. Will give IV Venofer x1 now. Recheck Hgb 4 hours post-transfusion. * continue to hold Plavix and aspirin Hypotension - resolved 06/24 * blood pressure is much improved * now off of IVFs 06/23 * intermittently hypotensive at rest, orthostatic hypotension, secondary to anemia as above * will continue IVFs 80 mL/hr, transfuse another unit to total 4 units of packed red blood cells * try PT/OT after transfusion, check orthostatics after transfusion * goal is to transfer to SNF/rehab Mechanical Fall s/p L femur repair 06/26 * stable for discharge, toe touch only on the L side 06/23 * appreciate orthopedics management * thigh swelling noted today; as per ortho, this is not an unusual swelling, but will continue to monitor * CT of the L hip - no hematoma noted Acute Kidney Injury superimposed on CKD stage 3 - resolved 06/24 * creatinine is less than 1; now off of IVFs * appreciate nephrology input 06/23 * creatinine at baseline is around 1.0 * creatinine annabel to 1.99 on 06/22 * creatinine is now down to 1.2 - appreciate nephrology input; the blood loss anemia is likely playing a part CAD s/p stenting * hx. of STEMI * severe CAD; takes Plavix, aspirin, NONI-I - no b-peggy due to bradycardia * currently holding Plavix, aspirin due to anemia * holding Lisinopril due to kidney injury * denies any symptoms; troponin negative x3, EKG with no significant changes noted on 06/23 * no need for a cardiology consultation at this time Chronic Diastolic CHF * grade 2 diastolic dysfunction, normal LVEF as per last echo on records * currently dehydrated and will give more fluids and pRBC transfusion * monitor for overload DM2 * hold oral agents, insulin sliding scale DVT ppx * SCDs, restart aspirin BID dosing once anemia is improved FULL CODE
[2017-06-27] MEDS: SENNA 8.6 MG TAB PO SCH (21:12)
[2017-06-27] MEDS: ASPIRIN 81 MG ECTAB PO SCH (21:12)
[2017-06-27 22:45] VITALS: BP 137/56; PULSE 78; TEMP 37.1; O2SAT 97
[2017-06-28] MEDS: ACETAMINOPHEN 500 MG TAB PO SCH ×3 (05:38→20:45)
[2017-06-28 06:15] LABS: HEMOGLOBIN 8.5 g/dL (14.0-18.0); MEAN CELL VOLUME 97.7 fL (80-100); MEAN CORPUSCULAR HGB CONC 32.7 g/dl (32-36); MEAN PLATELET VOLUME 9.5 fL (7.4-10.4); PLATELET COUNT 168 K/uL (130-400); RED CELL DISTRIBUTION WIDTH CV 16.3 % (11.5-14.5); RED CELL DISTRIBUTION WIDTH SD 55.6 fL (36.4-46.3); WHITE BLOOD COUNT 4.86 K/uL (4.8-10.8)
[2017-06-28 06:35] LABS: CALCIUM 8.4 mg/dl (8.5-10.1); CREATININE 0.8 mg/dl (0.60-1.40); POTASSIUM 3.9 mmol/L (3.5-5.1)
[2017-06-28 07:11] VITALS: BP 158/67; PULSE 62; TEMP 36.4; O2SAT 95
[2017-06-28] MEDS: DOCUSATE SODIUM 100 MG CAP PO SCH ×2 (09:00→20:43)
[2017-06-28] MEDS: BOOST GLUCOSE CONTROL PO SCH ×3 (09:20→18:28)
[2017-06-28] MEDS: MULTIVITAMIN TAB PO SCH (09:21)
[2017-06-28] MEDS: FERROUS GLUCONATE 324 MG TAB PO SCH ×3 (09:21→18:29)
[2017-06-28] MEDS: ATORVASTATIN 40 MG TAB PO SCH (09:22)
[2017-06-28] MEDS: ASPIRIN 81 MG ECTAB PO SCH ×2 (09:22→20:44)
[2017-06-28] MEDS: CHOLECALCIFEROL 1000 INTER.UNIT TAB PO SCH (09:22)
[2017-06-28] MEDS: INSULIN ASPART 100 UNITS/ML 3 ML PEN SC SCH ×4 (09:24→20:43)
--- NOTE | 2017-06-28 10:36 | Progress Note ---
Subjective Date of Service: Jun 28, 2017. Subjective Pt evaluation today including: conversation w/ patient, physical exam, lab review, review of studies, review of inpatient medication list Saw/examined the patient in room 352 +abdominal cramping this AM No significant pain at the L hip, no other issues Problem List Medical Problems: (1) Accidental fall Status: Acute (2) Anemia Status: Acute (3) Closed head injury Status: Acute (4) Dehydration Status: Acute (5) Fracture of proximal end of left femur Status: Acute (6) STEMI (ST elevation myocardial infarction) Status: Acute (7) Weakness Status: Acute Surgical Problems: (1) S/P cholecystectomy Status: Chronic Review of Systems Constitutional: No fever, No chills Respiratory: No shortness of breath Cardiac: No chest pain Abdomen: + see HPI, + pain, No nausea, No vomiting, No diarrhea, No constipation Musculoskeletal: No joint pain Medications Current Inpatient Medications Medications (Trade) Dose Ordered Sig/Yudelka Route Start Time Stop Time Status Last Admin Dose Admin Acetaminophen (Tylenol Tab) 1,000 mg Q8 PO 06/21/17 06:00 07/21/17 05:59 06/28/17 05:38 1,000 MG Naloxone HCl (Narcan Inj) 0.1 mg PRN PRN IV 06/21/17 01:15 07/21/17 01:14 Polyethylene (Miralax Powder Packet) 17 gm DAILY PRN PO 06/21/17 01:15 07/21/17 01:14 Atorvastatin Calcium (Lipitor Tab) 80 mg QAM PO 06/21/17 09:00 07/21/17 08:59 06/28/17 09:22 80 MG Multivitamins (Multivitamin Tab) 1 tab DAILY PO 06/21/17 09:00 07/21/17 08:59 06/28/17 09:21 1 TAB Nitroglycerin (Nitrostat Tab) 0.4 mg UD PRN SL 06/21/17 03:45 07/21/17 03:44 Cholecalciferol (Vitamin D Tab) 1,000 inter.unit QAM PO 06/21/17 09:00 07/21/17 08:59 06/28/17 09:22 1,000 INTER.UNIT Glucose (Glucose 40% Gel) 15-30 GRAMS 15 GRAMS... UD PRN PO 06/21/17 03:45 07/21/17 03:44 Glucose (Glucose Chew Tab) 4-8 Tablets 4 Tabl... UD PRN PO 06/21/17 03:45 07/21/17 03:44 Dextrose (Dextrose 50% 50ML Syringe) 25-50ML OF 50% DW IV FOR... UD PRN IV 06/21/17 03:45 07/21/17 03:44 Glucagon (Glucagon Inj) 1 mg UD PRN SQ 06/21/17 03:45 07/21/17 03:44 Oxycodone HCl (Roxicodone Immediate Rel Tab) 1-2 TABS FOR PAIN 1 TABLET ... Q4H PRN PO 06/21/17 21:15 07/05/17 21:14 06/26/17 13:52 5 MG Magnesium Hydroxide (Milk Of Magnesia Susp) 30 ml Q6H PRN PO 06/21/17 21:15 07/21/17 21:14 Bisacodyl (Dulcolax Supp) 10 mg DAILY PRN MD 06/21/17 21:15 07/21/17 21:14 Sodium Biphosphate/ Sodium Phosphate (Fleet Enema) 132 ml DAILY PRN MD 06/21/17 21:15 07/21/17 21:14 Senna (Senokot Tab) 17.2 mg HS PO 06/22/17 21:00 07/22/17 20:59 06/27/17 21:12 17.2 MG Docusate Sodium (coLACE CAP) 100 mg BID PO 06/22/17 09:00 07/22/17 08:59 06/27/17 21:12 100 MG Diphenhydramine HCl (Benadryl Inj) 25 mg Q8H PRN IV 06/21/17 21:15 07/21/17 21:14 Al Hydrox/Mg Hydrox/Simethicone (Maalox Max Susp) 15 ml Q4H PRN PO 06/21/17 21:15 07/21/17 21:14 Ondansetron HCl (Zofran Inj) 4 mg Q6H PRN IV 06/21/17 21:15 07/21/17 21:14 Metoclopramide HCl (Reglan Inj) 10 mg Q6H PRN IV 06/21/17 21:15 07/21/17 21:14 Ferrous Gluconate (Ferrous Gluconate Tab) 324 mg TIDM PO 06/22/17 07:30 07/22/17 08:29 06/28/17 09:21 324 MG Insulin Aspart (novoLOG ASPART) SLIDING SCALE If C... ACHS SC 06/22/17 16:30 07/22/17 16:29 06/27/17 21:14 1 UNITS Enteral Nutritional Formula (Boost Glucose Control) 1 can TIDM PO 06/23/17 07:30 07/23/17 07:29 06/27/17 18:14 1 CAN Aspirin (Ecotrin Tab) 81 mg BID PO 06/27/17 21:00 07/27/17 20:59 06/28/17 09:22 81 MG Objective Vital Signs Date Time Temp Pulse Resp B/P (MAP) Pulse Ox O2 Delivery O2 Flow Rate FiO2 06/28/17 07:45 Room Air 06/28/17 07:11 36.4 62 16 158/67 (97) 95 Room Air 06/27/17 23:30 Room Air 06/27/17 22:45 37.1 78 16 137/56 (83) 97 Room Air 06/27/17 15:36 Room Air 06/27/17 15:13 36.7 73 18 165/67 (99) 97 Room Air Physical Exam General Appearance: no apparent distress Respiratory/Chest: no respiratory distress, no accessory muscle use Cardiovascular: regular rate, rhythm, no edema, no murmur Extremities: non-tender, no pedal edema, + pertinent finding (+L thigh swelling - improving) Laboratory Results Last 24 Hours Test 06/27/17 11:51 06/27/17 17:08 06/27/17 20:39 06/28/17 05:36 Bedside Glucose 142 mg/dl 165 mg/dl 190 mg/dl White Blood Count 4.86 K/uL Red Blood Count 2.66 M/uL Hemoglobin 8.5 g/dL Hematocrit 26.0 % Mean Corpuscular Volume 97.7 fL Mean Corpuscular Hemoglobin 32.0 pg Mean Corpuscular Hemoglobin Concent 32.7 g/dl RDW Standard Deviation 55.6 fL RDW Coefficient of Variation 16.3 % Platelet Count 168 K/uL Mean Platelet Volume 9.5 fL Sodium Level 138 mmol/L Potassium Level 3.9 mmol/L Chloride Level 104 mmol/L Carbon Dioxide Level 28 mmol/L Anion Gap 6.0 mmol/L Blood Urea Nitrogen 16 mg/dl Creatinine 0.80 mg/dl Est Creatinine Clear Calc Drug Dose 68.2 ml/min Estimated GFR () 95.1 Estimated GFR (Non- 82.0 BUN/Creatinine Ratio 20.4 Random Glucose 115 mg/dl Calcium Level 8.4 mg/dl Test 06/28/17 08:09 Bedside Glucose 127 mg/dl Assessment and Plan This is an 86 year old male with a PMH of CAD s/p stents, DM2, hx. of prostate cancer, hx. of anemia - presents with a mechanical fall and L hip fracture, subsequently repaired and now here with ongoing hypotension and anemia. 06/28 * patient is doing well, Hgb stable * pain controlled * +BM * plan as of now is to discharge to [facility] in AM Update for 06/27 * family initially did not want patient to go to [facility] - appealing decision for [facility] * she is now agreeable to discharge patient to [facility] while waiting on the appeal; unfortunately, [facility] is unable to take the patient over the weekend * spoke with daughter, gave her the update; plan for d/c on Thursday * clinically stable; will recheck labs in AM 06/26 * patient's family currently in the process of appealing decision by insurance; they prefer patient to go to [facility] for acute rehab Multifactorial Anemia s/p 4 units of pRBCs 06/26 * Hgb up to 8.9 * stable in terms of anemia, no symptoms 06/25 * Hgb stable at around 8.0 this morning * can likely d/c to [facility] vs. [facility] today * restart aspirin on discharge for DVT ppx * CBC in one week as outpatient 06/24 * Hgb is 8.2 this morning * will recheck CBC in AM, if stable, can d/c to SNF/rehab * continue PT/OT * appreciate nephrology input; calcium gluconate given * holding aspirin + Plavix now, will need to restart aspirin prior to discharge to prevent DVTs 06/23 * patient with ongoing anemia; Hgb today (06/23) is 6.9 * patient has received 3 units of pRBCs in total during this admission * going back to previous records, patient has had issues with anemia in the past ; in April 2016, after a cholecystectomy, patient had been anemic and was given IV Venofer - was seen as an outpatient by hematology around that time and was told to stop taking oral iron supplements. Hgb has been stable since * currently, acute blood loss anemia and iron deficiency are playing a part. Will transfuse another unit of pRBC. Will give IV Venofer x1 now. Recheck Hgb 4 hours post-transfusion. * continue to hold Plavix and aspirin Hypotension - resolved 06/24 * blood pressure is much improved * now off of IVFs 06/23 * intermittently hypotensive at rest, orthostatic hypotension, secondary to anemia as above * will continue IVFs 80 mL/hr, transfuse another unit to total 4 units of packed red blood cells * try PT/OT after transfusion, check orthostatics after transfusion * goal is to transfer to SNF/rehab Mechanical Fall s/p L femur repair 06/26 * stable for discharge, toe touch only on the L side 06/23 * appreciate orthopedics management * thigh swelling noted today; as per ortho, this is not an unusual swelling, but will continue to monitor * CT of the L hip - no hematoma noted Acute Kidney Injury superimposed on CKD stage 3 - resolved 06/24 * creatinine is less than 1; now off of IVFs * appreciate nephrology input 06/23 * creatinine at baseline is around 1.0 * creatinine annabel to 1.99 on 06/22 * creatinine is now down to 1.2 - appreciate nephrology input; the blood loss anemia is likely playing a part CAD s/p stenting * hx. of STEMI * severe CAD; takes Plavix, aspirin, NONI-I - no b-peggy due to bradycardia * currently holding Plavix, aspirin due to anemia * holding Lisinopril due to kidney injury * denies any symptoms; troponin negative x3, EKG with no significant changes noted on 06/23 * no need for a cardiology consultation at this time Chronic Diastolic CHF * grade 2 diastolic dysfunction, normal LVEF as per last echo on records * currently dehydrated and will give more fluids and pRBC transfusion * monitor for overload DM2 * hold oral agents, insulin sliding scale DVT ppx * SCDs, restart aspirin BID dosing once anemia is improved FULL CODE
[2017-06-28] MEDS ORDERED: ACETAMINOPHEN 500 MG TAB PO ONE (13:55)
[2017-06-28 14:50] VITALS: BP 128/64; PULSE 76; TEMP 36.4; O2SAT 96
[2017-06-28] MEDS: SENNA 8.6 MG TAB PO SCH (20:44)
[2017-06-28 23:17] VITALS: BP 93/46; PULSE 76; TEMP 37.5; O2SAT 94
[2017-06-29] MEDS: ACETAMINOPHEN 500 MG TAB PO SCH (05:12)
[2017-06-29 07:55] VITALS: BP 134/60; PULSE 62; TEMP 36.9; O2SAT 94
[2017-06-29 08:05] VITALS: O2SAT 94
[2017-06-29] MEDS: FERROUS GLUCONATE 324 MG TAB PO SCH (08:59)
[2017-06-29] MEDS: ASPIRIN 81 MG ECTAB PO SCH (09:00)
[2017-06-29] MEDS: DOCUSATE SODIUM 100 MG CAP PO SCH (09:00)
[2017-06-29] MEDS: MULTIVITAMIN TAB PO SCH (09:00)
[2017-06-29] MEDS: ATORVASTATIN 40 MG TAB PO SCH (09:00)
[2017-06-29] MEDS: CHOLECALCIFEROL 1000 INTER.UNIT TAB PO SCH (09:01)
[2017-06-29] MEDS: INSULIN ASPART 100 UNITS/ML 3 ML PEN SC SCH ×2 (09:10→11:51)
[2017-06-29] MEDS: BOOST GLUCOSE CONTROL PO SCH (09:13)
[2017-06-29 10:40] VITALS: BP 134/60; PULSE 62; TEMP 36.9; O2SAT 94
--- NOTE | 2017-06-29 10:55 | Progress Note ---
Subjective Date of Service: Jun 29, 2017. Subjective Pt evaluation today including: conversation w/ patient, physical exam, lab review, review of studies, review of inpatient medication list Saw/examined the patient in room 352 He is doing well, seated in a chair states he has some pain in the L hip area, but not too bad swelling persists in the L upper thigh, but there is improvement Problem List Medical Problems: (1) Accidental fall Status: Acute (2) Anemia Status: Acute (3) Closed head injury Status: Acute (4) Dehydration Status: Acute (5) Fracture of proximal end of left femur Status: Acute (6) STEMI (ST elevation myocardial infarction) Status: Acute (7) Weakness Status: Acute Surgical Problems: (1) S/P cholecystectomy Status: Chronic Review of Systems Constitutional: No fever, No chills Respiratory: No cough, No sputum, No shortness of breath Cardiac: No chest pain, No edema, No palpitations Abdomen: No pain, No nausea, No vomiting, No diarrhea Musculoskeletal: + joint pain Medications Current Inpatient Medications Medications (Trade) Dose Ordered Sig/Yudelka Route Start Time Stop Time Status Last Admin Dose Admin Acetaminophen (Tylenol Tab) 1,000 mg Q8 PO 06/21/17 06:00 07/21/17 05:59 06/29/17 05:12 1,000 MG Naloxone HCl (Narcan Inj) 0.1 mg PRN PRN IV 06/21/17 01:15 07/21/17 01:14 Polyethylene (Miralax Powder Packet) 17 gm DAILY PRN PO 06/21/17 01:15 07/21/17 01:14 Atorvastatin Calcium (Lipitor Tab) 80 mg QAM PO 06/21/17 09:00 07/21/17 08:59 06/29/17 09:00 80 MG Multivitamins (Multivitamin Tab) 1 tab DAILY PO 06/21/17 09:00 07/21/17 08:59 06/29/17 09:00 1 TAB Nitroglycerin (Nitrostat Tab) 0.4 mg UD PRN SL 06/21/17 03:45 07/21/17 03:44 Cholecalciferol (Vitamin D Tab) 1,000 inter.unit QAM PO 06/21/17 09:00 07/21/17 08:59 06/29/17 09:01 1,000 INTER.UNIT Glucose (Glucose 40% Gel) 15-30 GRAMS 15 GRAMS... UD PRN PO 06/21/17 03:45 07/21/17 03:44 Glucose (Glucose Chew Tab) 4-8 Tablets 4 Tabl... UD PRN PO 06/21/17 03:45 07/21/17 03:44 Dextrose (Dextrose 50% 50ML Syringe) 25-50ML OF 50% DW IV FOR... UD PRN IV 06/21/17 03:45 07/21/17 03:44 Glucagon (Glucagon Inj) 1 mg UD PRN SQ 06/21/17 03:45 07/21/17 03:44 Oxycodone HCl (Roxicodone Immediate Rel Tab) 1-2 TABS FOR PAIN 1 TABLET ... Q4H PRN PO 06/21/17 21:15 07/05/17 21:14 06/26/17 13:52 5 MG Magnesium Hydroxide (Milk Of Magnesia Susp) 30 ml Q6H PRN PO 06/21/17 21:15 07/21/17 21:14 Bisacodyl (Dulcolax Supp) 10 mg DAILY PRN PA 06/21/17 21:15 07/21/17 21:14 Sodium Biphosphate/ Sodium Phosphate (Fleet Enema) 132 ml DAILY PRN PA 06/21/17 21:15 07/21/17 21:14 Senna (Senokot Tab) 17.2 mg HS PO 06/22/17 21:00 07/22/17 20:59 06/27/17 21:12 17.2 MG Docusate Sodium (coLACE CAP) 100 mg BID PO 06/22/17 09:00 07/22/17 08:59 06/29/17 09:00 100 MG Diphenhydramine HCl (Benadryl Inj) 25 mg Q8H PRN IV 06/21/17 21:15 07/21/17 21:14 Al Hydrox/Mg Hydrox/Simethicone (Maalox Max Susp) 15 ml Q4H PRN PO 06/21/17 21:15 07/21/17 21:14 Ondansetron HCl (Zofran Inj) 4 mg Q6H PRN IV 06/21/17 21:15 07/21/17 21:14 Metoclopramide HCl (Reglan Inj) 10 mg Q6H PRN IV 06/21/17 21:15 07/21/17 21:14 Ferrous Gluconate (Ferrous Gluconate Tab) 324 mg TIDM PO 06/22/17 07:30 07/22/17 08:29 06/29/17 08:59 324 MG Insulin Aspart (novoLOG ASPART) SLIDING SCALE If C... ACHS SC 06/22/17 16:30 07/22/17 16:29 06/29/17 09:10 2 UNITS Enteral Nutritional Formula (Boost Glucose Control) 1 can TIDM PO 06/23/17 07:30 07/23/17 07:29 06/29/17 09:13 1 CAN Aspirin (Ecotrin Tab) 81 mg BID PO 06/27/17 21:00 07/27/17 20:59 06/29/17 09:00 81 MG Objective Vital Signs Date Time Temp Pulse Resp B/P (MAP) Pulse Ox O2 Delivery O2 Flow Rate FiO2 06/29/17 10:40 36.9 62 20 94 Room Air 06/29/17 08:05 94 Room Air 06/29/17 07:55 36.9 62 20 134/60 (84) 94 Room Air 06/29/17 07:30 Room Air 06/28/17 23:30 Room Air 06/28/17 23:17 37.5 76 18 93/46 (62) 94 Room Air 06/28/17 15:45 Room Air 06/28/17 14:50 36.4 76 18 128/64 (85) 96 Room Air Physical Exam General Appearance: no apparent distress Respiratory/Chest: no respiratory distress, no accessory muscle use Cardiovascular: regular rate, rhythm Neurologic/Psychiatric: no motor/sensory deficits, alert, normal mood/affect Laboratory Results Last 24 Hours Test 06/28/17 11:56 06/28/17 17:06 06/28/17 20:21 06/29/17 07:58 Bedside Glucose 195 mg/dl 121 mg/dl 178 mg/dl 117 mg/dl Assessment and Plan This is an 86 year old male with a PMH of CAD s/p stents, DM2, hx. of prostate cancer, hx. of anemia - presents with a mechanical fall and L hip fracture, subsequently repaired and now here with ongoing hypotension and anemia. 06/29 * toe touch on the L side * pain controlled * will d/c to [facility] today * H/H stable * aspirin 81mg BID for DVT ppx * restart Plavix when okay with ortho 06/28 * patient is doing well, Hgb stable * pain controlled * +BM * plan as of now is to discharge to [facility] in AM Update for 06/27 * family initially did not want patient to go to [facility] - appealing decision for [facility] * she is now agreeable to discharge patient to [facility] while waiting on the appeal; unfortunately, [facility] is unable to take the patient over the weekend * spoke with daughter, gave her the update; plan for d/c on Thursday * clinically stable; will recheck labs in AM 06/26 * patient's family currently in the process of appealing decision by insurance; they prefer patient to go to [facility] for acute rehab Multifactorial Anemia s/p 4 units of pRBCs 06/26 * Hgb up to 8.9 * stable in terms of anemia, no symptoms 06/25 * Hgb stable at around 8.0 this morning * can likely d/c to [facility] vs. [facility] today * restart aspirin on discharge for DVT ppx * CBC in one week as outpatient 06/24 * Hgb is 8.2 this morning * will recheck CBC in AM, if stable, can d/c to SNF/rehab * continue PT/OT * appreciate nephrology input; calcium gluconate given * holding aspirin + Plavix now, will need to restart aspirin prior to discharge to prevent DVTs 06/23 * patient with ongoing anemia; Hgb today (06/23) is 6.9 * patient has received 3 units of pRBCs in total during this admission * going back to previous records, patient has had issues with anemia in the past ; in April 2016, after a cholecystectomy, patient had been anemic and was given IV Venofer - was seen as an outpatient by hematology around that time and was told to stop taking oral iron supplements. Hgb has been stable since * currently, acute blood loss anemia and iron deficiency are playing a part. Will transfuse another unit of pRBC. Will give IV Venofer x1 now. Recheck Hgb 4 hours post-transfusion. * continue to hold Plavix and aspirin Hypotension - resolved 06/24 * blood pressure is much improved * now off of IVFs 06/23 * intermittently hypotensive at rest, orthostatic hypotension, secondary to anemia as above * will continue IVFs 80 mL/hr, transfuse another unit to total 4 units of packed red blood cells * try PT/OT after transfusion, check orthostatics after transfusion * goal is to transfer to SNF/rehab Mechanical Fall s/p L femur repair 06/26 * stable for discharge, toe touch only on the L side 06/23 * appreciate orthopedics management * thigh swelling noted today; as per ortho, this is not an unusual swelling, but will continue to monitor * CT of the L hip - no hematoma noted Acute Kidney Injury superimposed on CKD stage 3 - resolved 06/24 * creatinine is less than 1; now off of IVFs * appreciate nephrology input 06/23 * creatinine at baseline is around 1.0 * creatinine annabel to 1.99 on 06/22 * creatinine is now down to 1.2 - appreciate nephrology input; the blood loss anemia is likely playing a part CAD s/p stenting * hx. of STEMI * severe CAD; takes Plavix, aspirin, NONI-I - no b-peggy due to bradycardia * currently holding Plavix, aspirin due to anemia * holding Lisinopril due to kidney injury * denies any symptoms; troponin negative x3, EKG with no significant changes noted on 06/23 * no need for a cardiology consultation at this time Chronic Diastolic CHF * grade 2 diastolic dysfunction, normal LVEF as per last echo on records * currently dehydrated and will give more fluids and pRBC transfusion * monitor for overload DM2 * hold oral agents, insulin sliding scale DVT ppx * SCDs, restart aspirin BID dosing once anemia is improved FULL CODE
[2017-06-29] MEDS ORDERED: RXC5 PO (11:03)
[2017-06-29] MEDS ORDERED: NUTR-7 PO (11:03)
[2017-06-29] MEDS ORDERED: FRRG PO (11:03)
[2017-06-29] MEDS ORDERED: CLC100 PO (11:03)
[2017-06-29] MEDS ORDERED: ASPI81TA28 PO (11:03)
--- NOTE | 2017-06-29 11:06 | Discharge Instructions ---
Discharge Instructions Date of Service Jun 29, 2017. Admission Reason for Admission: Hip Fracture, Left Discharge Discharge Diagnosis / Problem: L hip fracture, multifactorial anemia Discharge Goals Goal(s): Decrease discomfort, Improve function, Diagnostic testing, Therapeutic intervention Activity Recommendations Activity Level: Up Ad Genny Therapies: Physical Therapy, Weight Bearing Status, Occupational Therapy Weightbearing Status: Left toe touch . Additional Information Patient informed of condition: Yes Advance Directives: No DNR: No Level of Care: Acute Rehab Communicable Disease: No Prognosis: Stable Dolan Catheter: No Instructions / Follow-Up Instructions / Follow-Up [facility] DISCHARGE INSTRUCTIONS: HIP FRACTURE SELF CARE INSTRUCTIONS: A. You are to ambulate with a walker or crutches for approximately 6 weeks. B. You are TOE TOUCH WEIGHT BEARING on your operative lower extremity for at least 6 weeks. C. Wear low heeled shoes with non-slip soles D. Be sure that your floors are free of things that could trip you throw rugs, electrical cords, and small objects. Avoid wet and waxed floors, especially with crutches/walker/cane. E. Try to walk several times a day with rest periods between. F. You may shower 48 hours after surgery and get the incision area wet, but DO NOT soak or submerge incision area in water. (No baths, swimming pools, hot tubs ) G. You may have a large, band-aid like dressing over your incision (Aquacel). This will remain on your incision for 7 days, and then can be removed. You CAN shower with this on. If incision is leaking through the dressing, please call the office . H. Do NOT apply soap or any ointment/lotions directly over incision. I. You may use ice as needed to operative site. SPECIAL CARE INSTRUCTIONS: VERY IMPORTANT TO READ AND REVIEW A. You may be at risk for phlebitis or blood clots. a. Wear surgical stockings (ADDI hose) for 2 weeks after surgery to improve circulation and reduce swelling. b. Take ASPIRIN 81 mg twice daily 4 weeks along with your Plavix daily or as directed. This is your blood thinner. c. If you are on Coumadin- you will have daily/weekly blood work to monitor your levels. This will be done by either your family physician/ special education kindergarten teacher (if you are on Coumadin chronically) versus your orthopedic surgeon. Expect a phone call the day of or the day after your blood work is drawn to adjust your dose accordingly. B. There are a few signs you need to watch for after you are home. Call [facility] at [phone] if you experience any of the following: a. If you have a temperature of 101 degrees or higher. b. Sudden increase in pain in your hip not relieved by rest or pain medication. c. Any fluid or drainage from the incision; redness of the incision. d. Shortness of breath or chest pain. . C. Call your physician if: a. Temperature is greater than 101 degrees (F). b. Pain is not relieved by prescribed pain medications. c. Increase drainage or redness from incision. d. Unanswered questions or concerns. D. Pain Medication: a. You will be prescribed pain medication upon discharge that should last till your first post-operative appointment. b. If you experience nausea and/or skin rash, discontinue this medication and contact our office for an alternative medication. c. Caution- narcotic pain medication can cause constipation. FOLLOW UP VISIT: Please call [facility] at [phone] to schedule a follow up appointment with Dr Griffin in 10-14 days from the date of your surgery date. Current Hospital Diet Patient's current hospital diet: Diabetes Type 2 Diet Discharge Diet Recommended Diet: Diabetes Type 2 Diet Procedures Procedures Performed: 1. ORIF Left Subtrochanteric/ Intertrochanteric Femur fracture with Synthes Long interlocked Fixation Nail. 2.Application Synthes 1.7mm bone cable Pending Studies Studies pending at discharge: no Laboratory Results Hemoglobin A1c Test 06/21/17 05:56 Range/Units Estimated Average Glucose 108 mg/dl Hemoglobin A1c 5.4 4.5-5.6 % Medical Emergencies . Who to Call and When: Medical Emergencies: If at any time you feel your situation is an emergency, please call 911 immediately. . Non-Emergent Contact Non-Emergency issues call your: Primary Care Provider . . "Provider Documentation" section prepared by Melquiades Fried. . Building Appraiser Recommendations Building Appraiser Recommendations: [facility] DISCHARGE INSTRUCTIONS: HIP FRACTURE SELF CARE INSTRUCTIONS: A. You are to ambulate with a walker or crutches for approximately 6 weeks. B. You are TOE TOUCH WEIGHT BEARING on your operative lower extremity for at least 6 weeks. C. Wear low heeled shoes with non-slip soles D. Be sure that your floors are free of things that could trip you throw rugs, electrical cords, and small objects. Avoid wet and waxed floors, especially with crutches/walker/cane. E. Try to walk several times a day with rest periods between. F. You may shower 48 hours after surgery and get the incision area wet, but DO NOT soak or submerge incision area in water. (No baths, swimming pools, hot tubs ) G. You may have a large, band-aid like dressing over your incision (Aquacel). This will remain on your incision for 7 days, and then can be removed. You CAN shower with this on. If incision is leaking through the dressing, please call the office . H. Do NOT apply soap or any ointment/lotions directly over incision. I. You may use ice as needed to operative site. SPECIAL CARE INSTRUCTIONS: VERY IMPORTANT TO READ AND REVIEW A. You may be at risk for phlebitis or blood clots. a. Wear surgical stockings (ADDI hose) for 2 weeks after surgery to improve circulation and reduce swelling. b. Take ASPIRIN 81 mg twice daily 4 weeks along with your Plavix daily or as directed. This is your blood thinner. c. If you are on Coumadin- you will have daily/weekly blood work to monitor your levels. This will be done by either your family physician/ special education kindergarten teacher (if you are on Coumadin chronically) versus your orthopedic surgeon. Expect a phone call the day of or the day after your blood work is drawn to adjust your dose accordingly. B. There are a few signs you need to watch for after you are home. Call [facility] at [phone] if you experience any of the following: a. If you have a temperature of 101 degrees or higher. b. Sudden increase in pain in your hip not relieved by rest or pain medication. c. Any fluid or drainage from the incision; redness of the incision. d. Shortness of breath or chest pain. . C. Call your physician if: a. Temperature is greater than 101 degrees (F). b. Pain is not relieved by prescribed pain medications. c. Increase drainage or redness from incision. d. Unanswered questions or concerns. D. Pain Medication: a. You will be prescribed pain medication upon discharge that should last till your first post-operative appointment. b. If you experience nausea and/or skin rash, discontinue this medication and contact our office for an alternative medication. c. Caution- narcotic pain medication can cause constipation. FOLLOW UP VISIT: Please call [facility] at [phone] to schedule a follow up appointment with Dr Griffin in 10-14 days from the date of your surgery date. Core Measure Problem Core Measures: None
--- NOTE | 2017-06-29 11:11 | Discharge Summary ---
Discharge Summary Date of Service Jun 29, 2017. Discharge Summary Admission Date: Jun 21, 2017 at 03:08 Discharge Date: Jun 29, 2017 Discharge Disposition: care home facility Principal Diagnosis: Mechanical Fall, L Hip Fracture Multifactorial Anemia s/p 4 units pRBCs Hypotension - resolved Acute kidney Injury superimposed on CKD stage 3 - resolved CAD Medication Reconciliation New Medications: Docusate Sodium (Docusate Sodium) 100 Mg Cap 100 MG PO BID for 30 Days, #60 CAP Ferrous Gluconate (Ferrous Gluconate) 324 Mg Tab 324 MG PO TIDM for 30 Days, #90 TAB Nutritional Supplements (Boost) 1 Liq Liq 1 CAN PO TIDM for 30 Days, #90 CAN Oxycodone HCl (Oxycodone HCl) 5 Mg Tab 5 MG PO Q4 PRN for Pain for 5 Days, #30 TAB Changed Medications: Aspirin (Aspirin Ec) 81 Mg Tab 81 MG PO BID for 30 Days, #60 TABS (Changed from: QAM) Continued Medications: Atorvastatin (Lipitor) 80 Mg Tab 80 MG PO QAM, TAB Cholecalciferol (Vitamin D) 5,000 Unit Tab 5000 UNIT PO DAILY Lisinopril (Zestril) 5 Mg Tab 5 MG PO QAM, TAB Metformin Hcl (Glucophage) 500 Mg Tab 500 MG PO BID, TAB Multivitamin (Multivitamin) Tab 1 TAB PO DAILY, TAB Nitroglycerin (Nitrostat) 0.4 Mg Tab 1 TAB SL UD PRN for Chest Pain, TAB PLACE ONE TABLET UNDER THE TONGUE Discontinued Medications: Clopidogrel Bisulfate (Plavix) 75 Mg Tab 75 MG PO QAM, TAB Admission Information HPI (per Admitting provider): The patient is an 86-year-old male who presents with a left hip fracture after mechanical fall at home. The patient reports he was carrying something while walking up the stairs and lost his balance because a cat ran past him. He fell on the steps and notes hitting his head. He has had persistent left knee pain ever since that fall and states he hit his right elbow as well and has a number he is on Plavix and aspirin. He has had cardiac stents 2 years ago. Patient denies loss of consciousness, headache, visual changes, neck pain, chest pain, breathing difficulties, nausea, vomiting, abdominal pain, back pain, numbness, weakness, open wounds, active bleeding or other complaints. Daughter is at bedside and corroborates his story. The patient is functional and lives with his at home. In the last 6 months he denies any chest pain or shortness of breath episodes. His exercise tolerance is reported to be good, he can climb a flight of stairs without an issue typically. Physical Exam (per Admitting): General Appearance: WD/WN, no apparent distress Head: normocephalic, atraumatic Eyes: normal inspection, PERRL, sclerae normal ENT: pharynx normal, + pertinent finding (Mucous membranes moist) Neck: supple, no adenopathy, no JVD, trachea midline Respiratory/Chest: chest non-tender, lungs clear, normal breath sounds, no respiratory distress, no accessory muscle use Cardiovascular: regular rate, rhythm, no edema, no gallop, no JVD, no murmur , normal peripheral pulses Abdomen/GI: normal bowel sounds, non tender, soft, no organomegaly Extremities/Musculoskelatal: normal inspection, no calf tenderness, normal capillary refill, no pedal edema, normal range of motion Neurologic/Psych: customer service analyst II-XII nml as tested, no motor/sensory deficits, alert , normal mood/affect, oriented x 3 Skin: normal color, warm/dry, no rash Hospital Course This is an 86 year old male with a PMH of CAD s/p stents, DM2, hx. of prostate cancer, hx. of anemia - presents with a mechanical fall and L hip fracture, subsequently repaired and now here with ongoing hypotension and anemia. 06/29 * toe touch on the L side * pain controlled * will d/c to [facility] today * H/H stable * aspirin 81mg BID for DVT ppx * restart Plavix when okay with ortho 06/28 * patient is doing well, Hgb stable * pain controlled * +BM * plan as of now is to discharge to [facility] in AM Update for 06/27 * family initially did not want patient to go to [facility] - appealing decision for [facility] * she is now agreeable to discharge patient to [facility] while waiting on the appeal; unfortunately, [facility] is unable to take the patient over the weekend * spoke with daughter, gave her the update; plan for d/c on Thursday * clinically stable; will recheck labs in AM 06/26 * patient's family currently in the process of appealing decision by insurance; they prefer patient to go to [facility] for acute rehab Multifactorial Anemia s/p 4 units of pRBCs 06/26 * Hgb up to 8.9 * stable in terms of anemia, no symptoms 06/25 * Hgb stable at around 8.0 this morning * can likely d/c to [facility] vs. [facility] today * restart aspirin on discharge for DVT ppx * CBC in one week as outpatient 06/24 * Hgb is 8.2 this morning * will recheck CBC in AM, if stable, can d/c to SNF/rehab * continue PT/OT * appreciate nephrology input; calcium gluconate given * holding aspirin + Plavix now, will need to restart aspirin prior to discharge to prevent DVTs 06/23 * patient with ongoing anemia; Hgb today (06/23) is 6.9 * patient has received 3 units of pRBCs in total during this admission * going back to previous records, patient has had issues with anemia in the past ; in April 2016, after a cholecystectomy, patient had been anemic and was given IV Venofer - was seen as an outpatient by hematology around that time and was told to stop taking oral iron supplements. Hgb has been stable since * currently, acute blood loss anemia and iron deficiency are playing a part. Will transfuse another unit of pRBC. Will give IV Venofer x1 now. Recheck Hgb 4 hours post-transfusion. * continue to hold Plavix and aspirin Hypotension - resolved 06/24 * blood pressure is much improved * now off of IVFs 06/23 * intermittently hypotensive at rest, orthostatic hypotension, secondary to anemia as above * will continue IVFs 80 mL/hr, transfuse another unit to total 4 units of packed red blood cells * try PT/OT after transfusion, check orthostatics after transfusion * goal is to transfer to SNF/rehab Mechanical Fall s/p L femur repair 06/26 * stable for discharge, toe touch only on the L side 06/23 * appreciate orthopedics management * thigh swelling noted today; as per ortho, this is not an unusual swelling, but will continue to monitor * CT of the L hip - no hematoma noted Acute Kidney Injury superimposed on CKD stage 3 - resolved 06/24 * creatinine is less than 1; now off of IVFs * appreciate nephrology input 06/23 * creatinine at baseline is around 1.0 * creatinine annabel to 1.99 on 06/22 * creatinine is now down to 1.2 - appreciate nephrology input; the blood loss anemia is likely playing a part CAD s/p stenting * hx. of STEMI * severe CAD; takes Plavix, aspirin, NONI-I - no b-peggy due to bradycardia * currently holding Plavix, aspirin due to anemia * holding Lisinopril due to kidney injury * denies any symptoms; troponin negative x3, EKG with no significant changes noted on 06/23 * no need for a cardiology consultation at this time Chronic Diastolic CHF * grade 2 diastolic dysfunction, normal LVEF as per last echo on records * currently dehydrated and will give more fluids and pRBC transfusion * monitor for overload DM2 * hold oral agents, insulin sliding scale DVT ppx * SCDs, restart aspirin BID dosing once anemia is improved FULL CODE Total time spent on discharge = 45 minutes This includes examination of the patient, discharge planning, medication reconciliation, and communication with other providers. Discharge Instructions Hospital Intern Recommendations: [facility] DISCHARGE INSTRUCTIONS: HIP FRACTURE SELF CARE INSTRUCTIONS: A. You are to ambulate with a walker or crutches for approximately 6 weeks. B. You are TOE TOUCH WEIGHT BEARING on your operative lower extremity for at least 6 weeks. C. Wear low heeled shoes with non-slip soles D. Be sure that your floors are free of things that could trip you throw rugs, electrical cords, and small objects. Avoid wet and waxed floors, especially with crutches/walker/cane. E. Try to walk several times a day with rest periods between. F. You may shower 48 hours after surgery and get the incision area wet, but DO NOT soak or submerge incision area in water. (No baths, swimming pools, hot tubs ) G. You may have a large, band-aid like dressing over your incision (Aquacel). This will remain on your incision for 7 days, and then can be removed. You CAN shower with this on. If incision is leaking through the dressing, please call the office . H. Do NOT apply soap or any ointment/lotions directly over incision. I. You may use ice as needed to operative site. SPECIAL CARE INSTRUCTIONS: VERY IMPORTANT TO READ AND REVIEW A. You may be at risk for phlebitis or blood clots. a. Wear surgical stockings (ADDI hose) for 2 weeks after surgery to improve circulation and reduce swelling. b. Take ASPIRIN 81 mg twice daily 4 weeks along with your Plavix daily or as directed. This is your blood thinner. c. If you are on Coumadin- you will have daily/weekly blood work to monitor your levels. This will be done by either your family physician/ mining and quarrying machinery repairer (if you are on Coumadin chronically) versus your orthopedic surgeon. Expect a phone call the day of or the day after your blood work is drawn to adjust your dose accordingly. B. There are a few signs you need to watch for after you are home. Call [facility] at [phone] if you experience any of the following: a. If you have a temperature of 101 degrees or higher. b. Sudden increase in pain in your hip not relieved by rest or pain medication. c. Any fluid or drainage from the incision; redness of the incision. d. Shortness of breath or chest pain. . C. Call your physician if: a. Temperature is greater than 101 degrees (F). b. Pain is not relieved by prescribed pain medications. c. Increase drainage or redness from incision. d. Unanswered questions or concerns. D. Pain Medication: a. You will be prescribed pain medication upon discharge that should last till your first post-operative appointment. b. If you experience nausea and/or skin rash, discontinue this medication and contact our office for an alternative medication. c. Caution- narcotic pain medication can cause constipation. FOLLOW UP VISIT: Please call [facility] at [phone] to schedule a follow up appointment with Dr Griffin in 10-14 days from the date of your surgery date.
== END 2017-06-29 12:17 | DRG 480 ==
LOC: EDBD 21:01 → C.EDB 21:02 → C.MSN 06-21 03:08 → EDBEDREQ 06-21 03:11 → ENRESERV 06-21 03:30 → C.2T 06-21 22:37 → ENRESERV 06-24 12:19 → C.MSW 06-24 13:42
PROVIDERS: ADMIT Hospitalist; ATTEND Family Medicine
PROC: 0QS704Z Reposition Left Upper Femur with Internal Fixation Device, Open Approach (ICD-10-PCS; principal; 2017-06-21 11:30)
DX: S72.342A Displaced spiral fracture of shaft of left femur, initial encounter for closed fracture (principal); G93.40 Encephalopathy, unspecified; D62 Acute posthemorrhagic anemia; N17.9 Acute kidney failure, unspecified; I13.0 Hypertensive heart and chronic kidney disease with heart failure and stage 1 through stage 4 chronic kidney disease, or unspecified chronic kidney disease; I50.32 Chronic diastolic (congestive) heart failure; S09.90XA Unspecified injury of head, initial encounter; N40.0 Benign prostatic hyperplasia without lower urinary tract symptoms; I25.10 Atherosclerotic heart disease of native coronary artery without angina pectoris; E11.9 Type 2 diabetes mellitus without complications; N18.3 Chronic kidney disease, stage 3 (moderate); D72.829 Elevated white blood cell count, unspecified; I95.9 Hypotension, unspecified; E83.51 Hypocalcemia; Z85.46 Personal history of malignant neoplasm of prostate; I25.2 Old myocardial infarction; Z90.49 Acquired absence of other specified parts of digestive tract; W10.9XXA Fall (on) (from) unspecified stairs and steps, initial encounter; Z79.82 Long term (current) use of aspirin; Z91.018 Allergy to other foods; Z79.02 Long term (current) use of antithrombotics/antiplatelets; Z80.9 Family history of malignant neoplasm, unspecified

== ENCOUNTER → 2017-08-27 | Outpatient (CLI) | payer OTHER ==
[~2017-08-27] MED LIST changes: -CHOL100010 PO; +CHOL1TAB42 PO; +CLC100 PO; -CLOP1TAB5 PO; -FERR1TAB24 PO; +FRRG PO; +GLC/500 PO; -INSDGIPEN SC; +NUTR-7 PO; +RXC5 PO
[2017-08-27 08:34] LABS: HEMATOCRIT 32.4 % (42-52); HEMOGLOBIN 10.6 g/dL (14.0-18.0); MEAN CELL VOLUME 100.6 fL (80-100); MEAN CORPUSCULAR HEMOGLOBIN 32.9 pg (25-34); MEAN CORPUSCULAR HGB CONC 32.7 g/dl (32-36); MEAN PLATELET VOLUME 9.7 fL (7.4-10.4); PLATELET COUNT 130 K/uL (130-400); RED CELL DISTRIBUTION WIDTH CV 15.7 % (11.5-14.5); RED CELL DISTRIBUTION WIDTH SD 57.7 fL (36.4-46.3); WHITE BLOOD COUNT 4.62 K/uL (4.8-10.8)
[2017-08-27 08:56] LABS: ALBUMIN 3.2 gm/dl (3.4-5.0); ALKALINE PHOSPHATASE 107 U/L (45-117); ALT/SGPT 17 U/L (12-78); AST/SGOT 23 U/L (15-37); BLOOD UREA NITROGEN 14 mg/dl (7-18); CALCIUM 8.8 mg/dl (8.5-10.1); CARBON DIOXIDE 28 mmol/L (21-32); CHOLESTEROL 69 mg/dl (0-200); CREATININE 0.77 mg/dl (0.60-1.40); GLUCOSE 84 mg/dl (70-99); LDL CHOLESTEROL CALCULATED 15 mg/dl; POTASSIUM 3.9 mmol/L (3.5-5.1); SODIUM 140 mmol/L (136-145); TOTAL PROTEIN 6.3 gm/dl (6.4-8.2)
[2017-08-27 09:19] LABS: HEMOGLOBIN A1C 4.7 % (4.5-5.6)
== END ==
LOC: C.LABUPNIT 08:12
PROVIDERS: ATTEND Nurse Practitioner Family
DX: E11.9 Type 2 diabetes mellitus without complications (principal); D64.9 Anemia, unspecified; I25.10 Atherosclerotic heart disease of native coronary artery without angina pectoris

== ENCOUNTER 2019-08-27 19:50 | Inpatient (IN) ==
[2019-08-27] MEDS ORDERED: ACETAMINOPHEN 1,000 MG/100 ML VIAL IV STA (20:14)
--- NOTE | 2019-08-27 20:22 | Emergency Department Note ---
History of Present Illness General Chief complaint: Chest Pain Stated complaint: Chest Pain Time Seen by Provider: 08/27/19 19:51 Source: patient Mode of arrival: EMS Limitations: other History of Present Illness Provider complaint: Chest pain, fall Onset (ago): hour(s) 1 Location: chest and upper extremity Radiation: non-radiation Severity: moderate Pain Consistency: + constant Maximum Pain Intensity: 9 Current Pain Intensity: 9 Quality: + constant Relieved By: + none Exacerbated By: + movement Associated symptoms: + other (Dizziness) Treatments prior to arrival: aspirin and other (Nitro) This is an 88-year-old man from home who presents after complaints of chest pain following a fall at home. Per EMS patient was outside with his walker helping his family members assemble a trampoline when he fell over. EMS reports family did not report any head injury, loss of consciousness, or seizure-like activity. It did not report the patient had any change in color or complaints prior to the event. Patient did land on his left side and does have obvious trauma to the left elbow, no obvious injury was noted to the rib cage or chest wall on examination by EMS. Patient is a very difficult historian. Patient does have a prior history of coronary artery disease and stenting. It is unclear if the chest pain began prior to the fall where there were only other prodromal symptoms. Patient denied any head pain, hip pain, or lower extremity pain to EMS. In route EMS gave the patient aspirin, and 3 nitroglycerin without relief. Patient still complaining of pain on arrival here. Patient lives at home with his , and denied any recent illness. Patient is a very poor and difficult historian. Patient only able to participate in answering very simple yes/no questions. Pt seen during a time of high acuity and national emergency pandemic while wearing PPE. Home Medications Home Medications Medication Instructions Recorded Confirmed Type aspirin 81 mg PO QAM 10/29/18 08/27/19 History atorvastatin 80 mg PO QAM 10/29/18 08/27/19 History cholecalciferol (vitamin D3) 5,000 unit PO QAM 10/29/18 08/27/19 History [Vitamin D3] multivitamin 1 tab PO QAM 10/29/18 08/27/19 History nitroglycerin [Nitrostat] 0.4 mg SUBLINGUAL UD 10/29/18 08/27/19 History ferrous sulfate 325 mg PO QPM 08/27/19 08/27/19 History ferrous sulfate 650 mg PO QAM 08/27/19 08/27/19 History Allergies Allergy/AdvReac Type Severity Reaction Status Date / Time Pea Allergy Severe FRESH/RAW Uncoded 08/27/19 21:50 GREEN PEAS-THROAT SHUTDOWN Past Med/Surg History Medical History Benign prostatic hypertrophy (Chronic) CAD (coronary artery disease) (Chronic) "s/p stent placement" DM2 (diabetes mellitus, type 2) (Chronic) HTN (hypertension) (Chronic) Prostate cancer (Chronic 11/22/13) "Diagnosed with adenocarcinoma of the prostate in 11/2013. bone scan 12/06/13 was negative for metastasis. Ongoing treatment with Lupron injections. S/P radiation therapy completed on 06/08/2014." Family History Other No pertinent family history Social History Preferred Language: Turkmen Communication Ability: Effective Tongue Stitcher Required: No Beliefs That Will Affect Care: None Current Living Situation: Spouse and Family Other Information That Helps Us Care for You: No Feels Safe at Home: Yes Safety Concerns: Feels Safe At This Time Smoking Status: Unknown if ever smoked Hx Alcohol Use: No Hx Substance Use: No Review of Systems Other (limited by pt's ability to cooperate and answer questions) Physical Exam Vital Signs Vital Signs - 24 hr 08/27/19 19:54 08/27/19 19:57 08/27/19 20:00 Temperature 37.2 C Temperature Source Oral Pulse Rate 65 64 61 Pulse Rate from SpO2 Sensor 65 62 60 Respiratory Rate 22 22 21 Respiratory Effort / Characteristics Non-Labored Accessory Muscle Use Respiratory Depth Normal Respiratory Pattern Regular Blood Pressure 129/67 118/59 L Blood Pressure Mean 79 76 Pulse Oximetry 94 94 94 Oxygen Delivery Method Room Air Sepsis Recent Fever Within 48 Hours No Sepsis Action Taken by Nursing No Action Required 08/27/19 20:49 08/27/19 21:00 08/27/19 21:34 Temperature Temperature Source Pulse Rate 60 57 L Pulse Rate from SpO2 Sensor 61 60 54 L Respiratory Rate 19 19 18 Respiratory Effort / Characteristics Respiratory Depth Respiratory Pattern Blood Pressure Blood Pressure Mean Pulse Oximetry 96 96 96 Oxygen Delivery Method Sepsis Recent Fever Within 48 Hours Sepsis Action Taken by Nursing 08/27/19 22:00 08/27/19 22:24 Temperature Temperature Source Pulse Rate 64 66 Pulse Rate from SpO2 Sensor 68 Respiratory Rate 14 21 Respiratory Effort / Characteristics Respiratory Depth Respiratory Pattern Blood Pressure 154/63 H Blood Pressure Mean 133 Pulse Oximetry 96 Oxygen Delivery Method Sepsis Recent Fever Within 48 Hours Sepsis Action Taken by Nursing GENERAL: alert, well appearing, well nourished, no distress, non-toxic EYE EXAM: normal conjunctiva, PERRL and EOM's grossly intact OROPHARYNX: no exudate, no erythema, lips, buccal mucosa, and tongue normal and mucous membranes are moist NECK: supple, no nuchal rigidity, no adenopathy, non-tender LUNGS: Clear to auscultation. Normal chest wall mechanics, no w/r/r HEART: no murmurs, S1 normal and S2 normal, pain with palpation of the left chest wall ABDOMEN: abdomen soft, non-tender, normo-active bowel sounds, no masses, no josé luis ound or guarding. BACK: Back is symmetrical on inspection and there is no deformity, no midline tenderness, no CVA tenderness. SKIN: no rashes and no bruising UPPER EXTREMITIES: upper extremities are grossly normal. FROM, nml pulses b/l. Ecchymosis and abrasion noted to the area of the left elbow, no obvious deformity, no bony tenderness. LOWER EXTREMITIES: No pitting edema. FROM, nml pulses b/l. NEURO EXAM: Normal sensorium, cranial nerves II-XII grossly intact, normal speech, no gross weakness of arms, no gross weakness of legs. Gross sensation intact. Course Course 2020: Called and discussed the patient with his daughter, Lula Greene, at [phone]. 2255: Updated pt's daughter again. 2335: Pt resting, when awake states still having chest pain with palpation. VS stable. 2345: Updated pt's daughter again. 0011: Case discussed with Dr. Valero. Discussed anticoagulation. Will start low dose heparin. Administered Medications Discontinued Medications Aspirin (Aspirin) 324 mg PO NOW STA Stop: 08/27/19 23:40 Last Admin: 08/28/19 00:12 Dose: Not Given Documented by: [id number] [facility]ir[facility]rin [facility]ab) [facility] Stop: 09/27/19 08:59 Last Admin: 08/28/19 09:03 Dose: 81 mg Documented by: [id number] Aspirin (Ecotrin Ectab) 81 mg PO [facility] Stop: 09/28/19 08:59 Last Admin: 08/29/19 08:31 Dose: 81 mg Documented by: [id number] Atorvastatin Calcium (Lipitor) 80 mg PO [facility] Stop: 09/27/19 08:59 Last Admin: 08/28/19 09:03 Dose: 80 mg Documented by: [id number] Atorvastatin Calcium (Lipitor) 80 mg PO [facility] Stop: 09/28/19 08:59 Last Admin: 08/29/19 08:32 Dose: 80 mg Documented by: [id number] Enoxaparin Sodium (Lovenox) 40 mg SQ [facility] Stop: 09/28/19 08:59 Last Admin: 08/29/19 08:32 Dose: 40 mg Documented by: [id number] Ferrous Sulfate (Feosol) 650 mg PO [facility] Stop: 09/27/19 08:59 Last Admin: 08/28/19 09:03 Dose: 650 mg Documented by: [id number] Ferrous Sulfate (Feosol) 650 mg PO [facility] Stop: 09/28/19 08:59 Last Admin: 08/29/19 08:31 Dose: 650 mg Documented by: [id number] Ferrous Sulfate (Feosol) 325 mg PO QPM [facility] Stop: 09/27/19 20:59 Last Admin: 08/28/19 19:44 Dose: 325 mg Documented by: [id number] Heparin Sodium/Dextrose () 1 ea N/A ONE ONE; Protocol Stop: 08/28/19 00:13 Last Admin: 08/28/19 00:24 Dose: 1 ea Documented by: [id number] Hydralazine HCl (Hydralazine Hcl) 5 mg IV NOW ONE Stop: 08/28/19 23:43 Last Admin: 08/29/19 01:45 Dose: 5 mg Documented by: [id number] Acetaminophen (Ofirmev) 1,000 mg in 100 mls @ 400 mls/hr IV NOW STA Stop: 08/27/19 20:28 Last Infusion: 08/27/19 20:50 Dose: 0 mls/hr Documented by: [id number] Admin: 08/27/19 20:28 Dose: 400 mls/hr Documented by: [id number] Lorazepam (Ativan) 1 mg in 2 mls @ 0.5 mls/min IV UD STA Stop: 08/27/19 22:41 Last Admin: 08/27/19 22:49 Dose: 0.5 mls/min Documented by: [id number] Heparin Sodium/Dextrose (Heparin Sodium/Dextrose) 25,000 units in 500 mls @ 16 mls/hr IV .Q24H REAGAN; Protocol Stop: 09/27/19 00:14 Last Titration: 08/28/19 06:39 Dose: 0 units/hr, 0 mls/hr Documented by: [id number] Cosigned by: [id number] Admin: 08/28/19 00:23 Dose: 800 units/hr, 16 mls/hr Documented by: [id number] Cosigned by: [id number] Sodium Chloride (Nss 1000ml) 1,000 mls @ 75 mls/hr IV .[id number] REAGAN Stop: 09/27/19 03:00 Last Infusion: 08/28/19 15:46 Dose: 0 mls/hr Documented by: [id number] Admin: 08/28/19 03:21 Dose: 75 mls/hr Documented by: [id number] Insulin Aspart (Novolog Flexpen) 0 units SC ACHS REAGAN Stop: 09/27/19 07:29 Last Admin: 08/28/19 13:04 Dose: Not Given Documented by: [id number] Cosigned by: [id number] Admin: 08/28/19 09:01 Dose: Not Given Documented by: [id number] Cosigned by: [id number] Metoprolol Tartrate (Lopressor) 2.5 mg IV NOW STA Stop: 08/28/19 23:40 Last Admin: 08/29/19 01:47 Dose: Not Given Documented by: [id number] Multivitamins (Multivitamin Tab) 1 tab PO QAM [facility] Stop: 09/27/19 08:59 Last Admin: 08/28/19 09:03 Dose: 1 tab Documented by: [id number] Multivitamins (Multivitamin Tab) 1 tab PO QAM [facility] Stop: 09/28/19 08:59 Last Admin: 08/29/19 08:31 Dose: 1 tab Documented by: [id number] Nitroglycerin (Nitro-Bid 2%) 1 inch EXT NOW STA Stop: 08/27/19 23:40 Last Admin: 08/28/19 00:10 Dose: 1 inch Documented by: [id number] Perflutren Lipid Microsphere (Definity) 2 ml IV ONCE ONE Stop: 08/28/19 08:17 Last Admin: 08/28/19 08:16 Dose: 2 ml Documented by: [id number] Vitamin D (Vitamin D3) 5,000 [facility] Stop: 09/27/19 08:59 Last Admin: 08/28/19 09:03 Dose: 5,000 units Documented by: [id number] Vitamin D (Vitamin D3) 5,000 [facility] Stop: 09/28/19 08:59 Last Admin: 08/29/19 08:32 Dose: 5,000 units Documented by: [id number] Critical Care Time Critical Care Time: Yes Total Critical Care Time: 56 Critical care of 56 min performed to assess and manage high likelihood of life- threatening ACS, involving labs and imaging performed with assessment to evaluation chest pain diagnosis with frequent reassessment. This time includes bedside time, treatment discussions with patient/family/consultants, documentation time and excludes procedure time. Medical Decision Making Differential Diagnosis Differential diagnoses includes but is not limited to acute coronary syndrome, myocardial infarction, pericarditis, pulmonary embolus, aortic dissection, pneumonia, pneumothorax, musculoskeletal, shingles, esophageal, major intracranial, cervical, spinal, thoracic, abdominal, pelvic and neurologic i njury. Fracture, contusion, sprain, strain, laceration, abrasions included as well. Medical Records Attestation: I reviewed the patient's medical records. Home Medications Current Medication List: was personally reviewed by me Laboratory Data Attestation: I reviewed the patient's lab results. Result diagrams: 08/29/19 01:20 08/29/19 01:20 Lab Results 08/27/19 08/27/19 08/27/19 Range/Units 19:25 19:25 19:25 WBC 6.34 (4.8-10.8) K/uL RBC 3.48 L (4.7-6.1) M/uL Hgb 12.0 L (14.0-18.0) g/dL Hct 36.6 L (42-52) % MCV 105.2 H (80-100) fL MCH 34.5 H (25-34) pg MCHC 32.8 (32-36) g/dL RDW Std Deviation 51.6 H (36.4-46.3) fL RDW Coeff of Franco 13.4 (11.5-14.5) % Plt Count 132 (130-400) K/uL MPV 10.0 (7.4-10.4) fL Immature Gran % (Auto) 0.3 % Neut % (Auto) 79.1 % Lymph % (Auto) 11.8 % [place] % (Auto) 8.0 % Eos % (Auto) 0.6 % Baso % (Auto) 0.2 % Immature Gran # (Auto) 0.02 (0.00-0.02) K/uL Neut # (Auto) 5.01 (1.4-6.5) K/uL Lymph # (Auto) 0.75 L (1.2-3.4) K/uL [place] # (Auto) 0.51 (0.11-0.59) K/uL Eos # (Auto) 0.04 (0-0.5) K/uL Baso # (Auto) 0.01 (0-0.2) K/uL PT 10.9 (9.0-12.0) Seconds INR 1.0 (0.9-1.1) Sodium 139 (136-145) mmol/L Potassium 3.7 (3.5-5.1) mmol/L Chloride 106 (98-107) mmol/L Carbon Dioxide 28 (21-32) mmol/L Anion Gap 5.0 (3-11) BUN 16 (7-18) mg/dl Creatinine 1.05 (0.6-1.4) mg/dl Est Cr Clr Drug Dosing 45.6 ml/min Est GFR ( Amer) 74.1 Est GFR (Non-Af Amer) 64.0 BUN/Creatinine Ratio 15.0 (10-20) Glucose 201 H (70-99) mg/dl Calcium 8.6 (8.5-10.1) mg/dl Magnesium 2.3 (1.8-2.4) mg/dl Total Bilirubin 0.7 (0.2-1) mg/dl AST 26 (15-37) U/L ALT 24 (12-78) U/L Alkaline Phosphatase 96 (45-117) U/L Troponin I 0.017 (0-0.045) ng/ml NT-Pro-B Natriuret Pep 174 (0-1800) pg/ml Total Protein 6.7 (6.4-8.2) gm/dl Albumin 3.5 (3.4-5.0) gm/dl Globulin 3.2 (2.5-4.0) gm/dl Albumin/Globulin Ratio 1.1 (0.9-2) Lipase 102 (73-393) U/L TSH 1.580 (0.300-4.500) uIu/ml Urine Color Urine Appearance (Clear) Urine pH (4.5-7.5) Ur Specific Op[place] (1.000-1.030) Urine Protein (Negative) Urine Glucose (UA) (Negative) Urine Ketones (Negative) Urine Blood (Negative) Urine Nitrite (Negative) Urine Bilirubin (Negative) Urine Urobilinogen (Negative) Ur Leukocyte Esterase (Negative) Urine WBC (Auto) (0-5) /hpf Urine RBC (Auto) (0-4) /hpf U Hyaline Cast (Auto) (0-5) /lpf U Epithel Cells (Auto) (0-5) /lpf Urine Bacteria (Auto) (Negative) 08/27/19 08/27/19 Range/Units 22:22 22:46 WBC (4.8-10.8) K/uL RBC (4.7-6.1) M/uL Hgb (14.0-18.0) g/dL Hct (42-52) % MCV (80-100) fL MCH (25-34) pg MCHC (32-36) g/dL RDW Std Deviation (36.4-46.3) fL RDW Coeff of Franco (11.5-14.5) % Plt Count (130-400) K/uL MPV (7.4-10.4) fL Immature Gran % (Auto) % Neut % (Auto) % Lymph % (Auto) % [place] % (Auto) % Eos % (Auto) % Baso % (Auto) % Immature Gran # (Auto) (0.00-0.02) K/uL Neut # (Auto) (1.4-6.5) K/uL Lymph # (Auto) (1.2-3.4) K/uL [place] # (Auto) (0.11-0.59) K/uL Eos # (Auto) (0-0.5) K/uL Baso # (Auto) (0-0.2) K/uL PT (9.0-12.0) Seconds INR (0.9-1.1) Sodium (136-145) mmol/L Potassium (3.5-5.1) mmol/L Chloride (98-107) mmol/L Carbon Dioxide (21-32) mmol/L Anion Gap (3-11) BUN (7-18) mg/dl Creatinine (0.6-1.4) mg/dl Est Cr Clr Drug Dosing ml/min Est GFR ( Amer) Est GFR (Non-Af Amer) BUN/Creatinine Ratio (10-20) Glucose (70-99) mg/dl Calcium (8.5-10.1) mg/dl Magnesium (1.8-2.4) mg/dl Total Bilirubin (0.2-1) mg/dl AST (15-37) U/L ALT (12-78) U/L Alkaline Phosphatase (45-117) U/L Troponin I 0.069 H* (0-0.045) ng/ml NT-Pro-B Natriuret Pep (0-1800) pg/ml Total Protein (6.4-8.2) gm/dl Albumin (3.4-5.0) gm/dl Globulin (2.5-4.0) gm/dl Albumin/Globulin Ratio (0.9-2) Lipase (73-393) U/L TSH (0.300-4.500) uIu/ml Urine Color Yellow Urine Appearance Cloudy A (Clear) Urine pH 5.0 (4.5-7.5) Ur Specific Opal 1.026 (1.000-1.030) Urine Protein Negative (Negative) Urine Glucose (UA) Negative (Negative) Urine Ketones Negative (Negative) Urine Blood Negative (Negative) Urine Nitrite Negative (Negative) Urine Bilirubin Negative (Negative) Urine Urobilinogen Negative (Negative) Ur Leukocyte Esterase Negative (Negative) Urine WBC (Auto) 1-5 (0-5) /hpf Urine RBC (Auto) 0-4 (0-4) /hpf U Hyaline Cast (Auto) 1-5 (0-5) /lpf U Epithel Cells (Auto) 10-20 H (0-5) /lpf Urine Bacteria (Auto) Negative (Negative) Imaging Data Radiologist's Impression: CT SCAN OF THE BRAIN WITHOUT IV CONTRAST CLINICAL HISTORY: Trauma. Dizziness. COMPARISON STUDY: CT of the brain dated 12/31/2018. TECHNIQUE: Unenhanced axial CT scan of the brain is performed from the vertex to the skull base. A dose lowering technique was utilized adhering to the principles of ALARA. CT DOSE: 614.27 mGy.cm FINDINGS: Brain parenchyma: There are age-related involutional changes noting mild subcortical and periventricular microangiopathic change. There is no hemorrhage, mass effect, or evidence of acute territorial ischemia by CT criteria. Matthews- white matter differentiation is preserved. No extra-axial fluid collection is seen. Ventricles, sulci, cisterns: Prominent secondary to involutional change. Intracranial vasculature: There is atherosclerotic calcification of the cavernous carotid and vertebral arteries. Calvarium: The skeletal structures are osteopenic. No depressed calvarial fracture is identified. Sinuses and mastoids: The visualized paranasal sinuses are clear. The mastoid air cells are well pneumatized. Orbits: The bony orbits are grossly intact. IMPRESSION: There is no hemorrhage, mass effect, or evidence of acute territorial ischemia by CT criteria. ACT 112: Negative or not required by law. Electronically signed by: Mitchell Sutton M.D. 08/27/2019 8:49 PM AP CHEST with LEFT-SIDED RIB SERIES CLINICAL HISTORY: Fall. Left-sided chest wall pain. FINDINGS: An AP upright chest radiograph with 5 additional views from a left- sided rib series is compared to study dated 12/31/2018 and correlated with chest CT dated 10/29/2018. The AP view is degraded by patient rotation. The heart is mildly enlarged noting atherosclerotic calcification of the thoracic aorta. The pulmonary vasculature is noncongested. Chronic interstitial thickening is similar to previous. Scarring/atelectasis is noted at the lung bases. There is no airspace consolidation or large pleural effusion. No pneumothorax is seen. The skeletal structures are osteopenic. There is no radiographic evidence of acute/distracted left-sided rib fracture on the rib series. The remainder of the bony thorax is grossly intact. IMPRESSION: 1. Cardiomegaly with no acute cardiopulmonary abnormality. 2. There is no radiographic evidence of acute/distracted left-sided rib fracture on the rib series. ACT 112: Negative or not required by law. Electronically signed by: Mitchell Sutton M.D. 08/27/2019 9:44 PM LEFT SHOULDER 3 VIEWS CLINICAL HISTORY: Fall. Left shoulder pain. FINDINGS: 3 views of the left shoulder are obtained. No prior studies are available for comparison at the time of dictation. The Skeletal structures are osteopenic. There is no radiographic evidence of left shoulder fracture or dislocation. Mild degenerative change is noted at the acromioclavicular joint. The glenohumeral articulation is preserved. The overlying soft tissues are normal in appearance. The partially imaged left upper lobe lung parenchyma appears clear. IMPRESSION: No acute bony abnormality is identified. Electronically signed by: Mitchell Sutton M.D. 08/27/2019 9:45 PM LEFT ELBOW 3 VIEWS CLINICAL HISTORY: Fall. Left elbow injury. FINDINGS: 3 views of the left elbow are obtained. No prior studies are available for comparison at the time of dictation. The examination is degraded by inability to properly position the patient. The skeletal structures are ost eopenic. There is no radiographic evidence of left elbow fracture. No dislocation is seen. Enthesophytes arise from the humeral epicondyles. There is no joint effusion. Mild dorsal soft tissue edema is noted. IMPRESSION: Mild soft tissue swelling with no acute bony abnormality identified. Electronically signed by: Mitchell Sutton M.D. 08/27/2019 9:46 PM SINGLE VIEW PELVIS CLINICAL HISTORY: Fall. FINDINGS: An AP supine view of the pelvis is compared to study dated 06/20/2017. The skeletal structures are osteopenic. No acute fracture is identified involving the hips or bony pelvis. There is chronic posttraumatic deformity of the left proximal femur with intertrochanteric and intramedullary nails in place. 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 Lumbosacral spondylosis is partially visualized. Degenerative sclerosis is seen in the sacroiliac joints. There is no bowel obstruction. The overlying soft tissues are normal as imaged. There is atherosclerotic calcification of the femoral arteries. Small fiducials project over the prostate gland. IMPRESSION: No acute bony abnormality is identified. Electronically signed by: Mitchell Sutton M.D. 08/27/2019 9:38 PM ECG Data Attestation: I personally reviewed and interpreted this ECG as follows: Indication: + chest pain Rate (beats per minute): 64 Rhythm: + normal sinus ECG Intervals/blocks: + Normal QRS and + Normal QT ECG [place]: + Left axis deviation ECG ST segments: + Normal ST segments Blood Pressure Blood Pressure Findings: Elevated blood pressure Blood Pressure Disposition: further management by hospitalist ALEJANDRA Narrative Elderly man from home presenting after a fall with complaints of chest pain. Pt is a very difficulty historian and family member available didn't witness the fall but was relaying information from other family. Unclear if pt's chest pain preceeded the fall or was secondary to the fall. Family only mentioned pt c/o dizziness on scene. Pt with extensive PMHx. No anticoagulation only daily asa 81 mg. Labs drawn and sent and reassuring. Imaging performed and no evidence of acute injury. I have a low suspicion for occult traumatic injury, no other findings on physical exam. I updated family and we observed the patient in order to recheck a 2nd troponin given c/o chest pain. No EKG changes noted. Repeat troponin was elevated. I again updated family and they were in agreement with plan for inpatient mgmt. Pt started on heparin drip as a precaution for possible NSTEMI. Given slow ground level fall, I do not suspect elevated troponin due to cardiac trauma or effusion. I do not suspect acute vascular etiology otherwise. VS stable throughout. No focal neuro deficits noted on exam, head CT reassuring, I do not suspect acute neuro pathology contributing to fall or c/o dizziness at this time. No evidence of fx or ICH due to subsequent fall. An order was placed for continuous cardiac monitoring. The monitor shows a rate of 66 with normal sinus rhythm. Patient has a family history of CAD. Patient was first seen and observation began at 195 and was necessary in order to evaluate chest pain in the setting of trauma. Upon re-evaluation, 4 hours of observation revealed that the patient could be admitted. Discharge time at 0011. Impression & Plan Atypical chest pain, Fall, Contusion of elbow Discharge Plan Visit Data *Final* Discharge Date/Time: 08/28/19 02:44 Chief Complaint: Chest Pain Stated Complaint: Chest Pain ED Provider: Aruna Rosen Discharge Problem: Atypical chest pain, Fall, Contusion of elbow Patient Disposition: Admitted As Inpatient Condition: Fair Discharge Instructions Interventions: ED Discharge Assessment Last Done: 08/28/19 02:44 Discharge Problem: Fall Qualifiers: Encounter type: initial encounter Qualified Code(s): W19.XXXA - Unspecified fall, initial encounter Contusion of elbow Qualifiers: Encounter type: initial encounter Laterality: left Qualified Code(s): S50.02XA - Contusion of left elbow, initial encounter
[2019-08-27 20:23] LABS: Basophils # (auto) 0.01 K/uL (0-0.2); Basophils % (auto) 0.2 %; Eosinophils # (auto) 0.04 K/uL (0-0.5); Eosinophils % (auto) 0.6 %; Hematocrit (blood only) 36.6 % (42-52); Immature Granulocytes # (auto) 0.02 K/uL (0.00-0.02); Immature Granulocytes % (auto) 0.3 %; Lymphocytes # (auto) 0.75 K/uL (1.2-3.4); Lymphocytes % (auto) 11.8 %; Mean Corpuscular Hemoglobin 34.5 pg (25-34); Mean Corpuscular Hgb Conc 32.8 g/dL (32-36); Mean Corpuscular Volume 105.2 fL (80-100); Monocytes # (auto) 0.51 K/uL (0.11-0.59); Neutrophils # (auto) 5.01 K/uL (1.4-6.5); Neutrophils % (auto) 79.1 %; Platelet Count 132 K/uL (130-400); RDW Coefficient of Variation 13.4 % (11.5-14.5); RDW Standard Deviation 51.6 fL (36.4-46.3); Red Blood Count 3.48 M/uL (4.7-6.1); White Blood Count 6.34 K/uL (4.8-10.8)
[2019-08-27 20:31] LABS: Albumin Level 3.5 gm/dl (3.4-5.0); Calcium 8.6 mg/dl (8.5-10.1); Creatinine Clr Calc Pharmacy 45.6 ml/min; Est GFR (African American) 74.1; Magnesium 2.3 mg/dl (1.8-2.4); Potassium 3.7 mmol/L (3.5-5.1)
[2019-08-27 20:33] LABS: Prothrombin Time 10.9 Seconds (9.0-12.0)
[2019-08-27 20:42] LABS: Albumin Globulin Ratio 1.1 (0.9-2); Bilirubin,Total 0.7 mg/dl (0.2-1); Globulin 3.2 gm/dl (2.5-4.0); Thyroid Stimulating Hormone 1.58 uIu/ml (0.300-4.500); Total Protein 6.7 gm/dl (6.4-8.2); Troponin I 0.017 ng/ml (0-0.045)
--- NOTE | 2019-08-27 20:51 | CT Scan Report ---
CT SCAN OF THE BRAIN WITHOUT IV CONTRAST CLINICAL HISTORY: Trauma. Dizziness. COMPARISON STUDY: CT of the brain dated 12/31/2018. TECHNIQUE: Unenhanced axial CT scan of the brain is performed from the vertex to the skull base. A do se lowering technique was utilized adhering to the principles of ALARA. CT DOSE: 614.27 mGy.cm FINDINGS: Brain parenchyma: There are age-related involutional changes noting mild subcortical and periventric ular microangiopathic change. There is no hemorrhage, mass effect, or evidence of acute territorial i schemia by CT criteria. Matthews-white matter differentiation is preserved. No extra-axial fluid collecti on is seen. Ventricles, sulci, cisterns: Prominent secondary to involutional change. Intracranial vasculature: There is atherosclerotic calcification of the cavernous carotid and vertebr al arteries. Calvarium: The skeletal structures are osteopenic. No depressed calvarial fracture is identified. Sinuses and mastoids: The visualized paranasal sinuses are clear. The mastoid air cells are well pneu matized. Orbits: The bony orbits are grossly intact. IMPRESSION: There is no hemorrhage, mass effect, or evidence of acute territorial ischemia by CT ayot nelly. ACT 112: Negative or not required by law. Electronically signed by: Mitchell Sutton M.D. 08/27/2019 8:49 PM
--- NOTE | 2019-08-27 21:40 | XRay Report ---
SINGLE VIEW PELVIS CLINICAL HISTORY: Fall. FINDINGS: An AP supine view of the pelvis is compared to study dated 06/20/2017. The skeletal structur es are osteopenic. No acute fracture is identified involving the hips or bony pelvis. There is chroni c posttraumatic deformity of the left proximal femur with intertrochanteric and intramedullary nails in place. 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 Lumbosacral spondylosis is partially v isualized. Degenerative sclerosis is seen in the sacroiliac joints. There is no bowel obstruction. Th e overlying soft tissues are normal as imaged. There is atherosclerotic calcification of the femoral arteries. Small fiducials project over the prostate gland. IMPRESSION: No acute bony abnormality is identified. Electronically signed by: Mitchell Sutton M.D. 08/27/2019 9:38 PM
--- NOTE | 2019-08-27 21:45 | XRay Report ---
AP CHEST with LEFT-SIDED RIB SERIES CLINICAL HISTORY: Fall. Left-sided chest wall pain. FINDINGS: An AP upright chest radiograph with 5 additional views from a left-sided rib series is comp ared to study dated 12/31/2018 and correlated with chest CT dated 10/29/2018. The AP view is degraded b y patient rotation. The heart is mildly enlarged noting atherosclerotic calcification of the thoracic aorta. The pulmonary vasculature is noncongested. Chronic interstitial thickening is similar to prev ious. Scarring/atelectasis is noted at the lung bases. There is no airspace consolidation or large pl eural effusion. No pneumothorax is seen. The skeletal structures are osteopenic. There is no radiogra phic evidence of acute/distracted left-sided rib fracture on the rib series. The remainder of the bon y thorax is grossly intact. IMPRESSION: 1. Cardiomegaly with no acute cardiopulmonary abnormality. 2. There is no radiographic evidence of acute/distracted left-sided rib fracture on the rib series. ACT 112: Negative or not required by law. Electronically signed by: Mitchell Sutton M.D. 08/27/2019 9:44 PM
--- NOTE | 2019-08-27 21:46 | XRay Report ---
LEFT SHOULDER 3 VIEWS CLINICAL HISTORY: Fall. Left shoulder pain. FINDINGS: 3 views of the left shoulder are obtained. No prior studies are available for comparison at the time of dictation. The Skeletal structures are osteopenic. There is no radiographic evidence of left shoulder fracture or dislocation. Mild degenerative change is noted at the acromioclavicular arnoldo nt. The glenohumeral articulation is preserved. The overlying soft tissues are normal in appearance. The partially imaged left upper lobe lung parenchyma appears clear. IMPRESSION: No acute bony abnormality is identified. Electronically signed by: Mitchell Sutton M.D. 08/27/2019 9:45 PM
--- NOTE | 2019-08-27 21:48 | XRay Report ---
LEFT ELBOW 3 VIEWS CLINICAL HISTORY: Fall. Left elbow injury. FINDINGS: 3 views of the left elbow are obtained. No prior studies are available for comparison at th e time of dictation. The examination is degraded by inability to properly position the patient. The s keletal structures are osteopenic. There is no radiographic evidence of left elbow fracture. No dislo cation is seen. Enthesophytes arise from the humeral epicondyles. There is no joint effusion. Mild do rsal soft tissue edema is noted. IMPRESSION: Mild soft tissue swelling with no acute bony abnormality identified. Electronically signed by: Mitchell Sutton M.D. 08/27/2019 9:46 PM
[2019-08-27] MEDS ORDERED: LORazepam 1 MG/2 ML VIAL IV STA (22:38)
[2019-08-27 22:54] LABS: Appearance Urine Cloudy (Clear); Bacteria Urine Automated Negative (Negative); Bilirubin Urine Negative (Negative); Blood Urine Negative (Negative); Color Urine Yellow; Glucose Urine UA Negative (Negative); Ketones Urine Negative (Negative); Leukocyte Esterase Urine Negative (Negative); Nitrite Urine Negative (Negative); Protein Urine Negative (Negative); RBC Urine Automated 0-4 /hpf (0-4); Specific Gravity Urine 1.026 (1.000-1.030); Urobilinogen Urine Negative (Negative)
[2019-08-27] MEDS ORDERED: NITROGLYCERIN 2% OINTMENT 30GM TUBE EXT STA (23:39)
[2019-08-27] MEDS ORDERED: ASPIRIN CHEW 324 MG PO STA (23:39)
[2019-08-28] MEDS ORDERED: Heparin IV Low Dose *NO* Bolus ONE (00:12)
[2019-08-28] MEDS ORDERED: HEPARIN SODIUM/DEXTROSE 25,000 UNITS/500 ML BAG IV SCH (00:15)
[2019-08-28] MEDS ORDERED: ACETAMINOPHEN 325 MG TAB PO PRN ×2 (03:01→15:51)
[2019-08-28] MEDS ORDERED: ONDANSETRON INJ 2 MG/ML 2 ML VIAL IV PRN (03:01)
[2019-08-28] MEDS ORDERED: SODIUM CHLORIDE 0.9% 1000ML 1,000 ML IV SCH (03:01)
[2019-08-28] MEDS ORDERED: NITROGLYCERIN SL 0.4 MG/TAB TAB SL PRN (03:01)
[2019-08-28] MEDS ORDERED: GLUCOSE 40% GEL 15 GM TUBE PO PRN ×2 (03:15→15:51)
[2019-08-28] MEDS ORDERED: GLUCOSE 10 TABS/TUBE PO PRN ×2 (03:15→15:51)
[2019-08-28] MEDS ORDERED: DEXTROSE 50% 50 ML SYRINGE IV PRN ×2 (03:15→15:51)
[2019-08-28] MEDS ORDERED: GLUCAGON FOR INJ 1 MG VIAL SQ PRN ×2 (03:15→15:51)
[2019-08-28] MEDS ORDERED: CARBOHYDRATES FOR HYPOGLYCEMIA PO PRN ×2 (03:15→15:51)
--- NOTE | 2019-08-28 06:04 | History and Physical Report ---
DATE OF ADMISSION: 08/27/2019 CHIEF COMPLAINT: Chest pain. HISTORY OF PRESENT ILLNESS: This 88-year-old male with past medical history significant for type 2 diabetes, hyperlipidemia, hypertension, history of coronary artery disease, prostate cancer, right inguinal hernia, anemia, history of fracture of the left hip, ambulatory dysfunction who lives with his , ambulates with help of walker. On 08/27/2019, yesterday in the evening, he was watching the family members fixing a trampoline .He was using walker and he fell down, after falling down he complained of chest pain. EMS was called in and he was given nitro and brought into the hospital. The patient is a poor historian. As per the ER physician, he was only answering yes and no and he was still complaining of chest pain. His initial troponin was negative, but second troponin came back elevated at 0.06. EKG was unremarkable. He has some injuries at his left elbow, x-ray showed some mild soft tissue swelling, otherwise unremarkable. . Later in the ER, the patient was somewhat agitated given Ativan and currently he is sleepy, arousable, opens eyes, but he just stares, not answering any questions. Moves extremities on painful stimuli. I was able to call the daughter and daughter says the patient apparently at baseline has some speech difficulties. Not able to use appropriate words and he gets frustrated. There is no recent fever, chills. No complaint of any pain. No nausea, no vomiting, no diarrhea, no cough. He walks with a walker. PAST MEDICAL HISTORY: As mentioned above. PAST SURGICAL HISTORY: Carpal tunnel surgery, colonoscopy, EGDs, laparoscopic cholecystectomy, left hip fracture status post open reduction internal fixation. MEDICATIONS: The patient is on ferrous sulfate 325 mg p.o. t.i.d., nitroglycerin 0.4 mg sublingual p.r.n., atorvastatin 80 mg p.o. daily, Tylenol 650 mg p.o. t.i.d., aspirin 81 mg p.o. daily, multivitamin 1 tablet daily. FAMILY HISTORY: Significant for sister who had cancer. SOCIAL HISTORY: Lives with his . No smoking, no alcohol, no drug use. REVIEW OF SYMPTOMS: Currently unobtainable as the patient is somewhat sleepy with Ativan. PHYSICAL EXAMINATION: VITAL SIGNS: Temperature 37.2, pulse 50, respiratory rate 16, blood pressure 132/62, oxygen 95% on room air. HEENT: Pupils equal, round, and reactive to light. NECK: No neck masses. CARDIOVASCULAR: S1, S2, regular rate and rhythm, no murmur, no gallop. RESPIRATORY SYSTEM: Normal AP diameter. No accessory muscle use. No wheezing, no crackles. ABDOMEN: Soft, bowel sounds present, nontender. No distention. CENTRAL NERVOUS SYSTEM: Drowsy, but arousable. Moves extremities on painful stimuli. EXTREMITIES: No edema, no erythema. LABORATORY DATA: WBC 6.3, hemoglobin 12, hematocrit 36.6, platelets 132. PT 10.9, INR 1. Sodium 139, potassium 3.7, chloride 106, bicarbonate 28, BUN 16, creatinine 1.05, serum glucose 201, calcium 8.6, magnesium 2.3, total bilirubin 0.7, AST 26, ALT 24, alkaline phosphatase 96. Troponin I 0.06. BNP 174, lipase 102. TSH 1.5. Urinalysis negative. Chest x-ray, no acute findings. Left elbow x-ray, mild soft tissue swelling with no acute bony abnormality. CT of the head, no hemorrhage or mass effect, or evidence of acute ischemia. Pelvic x-ray, no acute findings. Left shoulder x-ray, no acute bony abnormality identified. EKG: Normal sinus rhythm, rate of 64, no acute ST changes seen, no significant change was found. ASSESSMENT AND PLAN: This 88-year-old male presents with chest pain. 1. Chest pain, rule out acute coronary syndrome, history of myocardial infarction in the past. The patient was watching with a walker while family was fixing trampoline and he felled on the left side and he complained of chest pain and he complained of chest pain when he came to the ER too. He is poor historian. Troponin slightly elevated at 0.06. Getting treated for possible non-ST elevated myocardial infarction with iv heparin.. EKG, no changes. Continue his home aspirin. Follow serial cardiac enzymes, echocardiogram, n.p.o. Gentle fluids. Consult cardiology in a.m. for further recommendations. 2. History of coronary artery disease, history of myocardial infarction, on aspirin and statin. Follow echocardiogram. 3. Diabetes, not on medication. Follow hba1c. We will place him on insulin sliding scale. Currently n.p.o. 4. History of hypertension, not on any medication. We will monitor the blood pressure. 5. Hyperlipidemia, on statin. 6. History of prostate cancer, history of radiation treatment. 7. History of anemia on iron supplements. 8. Ambulatory dysfunction on walker. PT and OT prior to discharge. Social Service to help with discharge planning. Code status, full code if there is a chance of recovery as per my discussion with the daughter. Admit to tele floor. DISPOSITION: To be determined MTDD
[2019-08-28 07:37] LABS: Partial Thromboplastin Ratio 1.2; Partial Thromboplastin Time 34.7 Seconds (21.0-31.0)
[2019-08-28] MEDS ORDERED: PERFLUTREN LIPID MICROSPHERE (DEFINITY) IV ONE (08:16)
--- NOTE | 2019-08-28 08:22 | Cardiology Consultation ---
Date of Consultation August 28, 2019 Assessment & Plan (1) Atypical chest pain: (2) Fall: (3) Prostate cancer: This is a elderly 88-year-old male patient with advanced dementia who sustained a mechanical fall yesterday following which he complained of chest pain. His EKG had no acute changes. His second troponin was very minimally positive with the other 2 being normal. He is not expressing any additional complaints of chest pain today. Due to his advanced dementia I do not believe that we should do any additional cardiac testing. I would treat him conservatively unless he develops additional chest discomfort or becomes unstable. I believe, he may be followed by [facility] at home and therefore when everyone is in agreement, an earlier discharge may be helpful with follow-up by [facility]. History of Present Illness Attending Physician: Jinny Spears MD History of Present Illness This is an 88-year-old male patient with a history of dementia. He is a poor historian and the information is taken from the medical record. He has a history of diabetes, stage III kidney disease, prostatic carcinoma and a remote history of an old myocardial infarction. He is not very mobile. He does ambulate with a walker. Yesterday, he was outside with his family watching a repair of a trampoline. He had a mechanical fall. He then complained of chest pain and was brought to the emergency department. He had a very slight elevation in his cardiac troponin on the second set. Third set and first set are negative. His EKG had no acute changes. Pro natruretic peptide is negative. Allergies Allergy/AdvReac Type Severity Reaction Status Date / Time Pea Allergy Severe FRESH/RAW Uncoded 08/27/19 21:50 GREEN PEAS-THROAT SHUTDOWN Home Medications Home Medications Medication Instructions Recorded Confirmed Type aspirin 81 mg PO QAM 10/29/18 08/27/19 History atorvastatin 80 mg PO QAM 10/29/18 08/27/19 History cholecalciferol (vitamin D3) 5,000 unit PO QAM 10/29/18 08/27/19 History [Vitamin D3] multivitamin 1 tab PO QAM 10/29/18 08/27/19 History nitroglycerin [Nitrostat] 0.4 mg SUBLINGUAL UD 10/29/18 08/27/19 History ferrous sulfate 325 mg PO QPM 05/16/20 05/16/20 History ferrous sulfate 650 mg PO QAM 08/27/19 08/27/19 History Patient History Medical History Benign prostatic hypertrophy (Chronic) CAD (coronary artery disease) (Chronic) "s/p stent placement" DM2 (diabetes mellitus, type 2) (Chronic) HTN (hypertension) (Chronic) Prostate cancer (Chronic 11/22/13) "Diagnosed with adenocarcinoma of the prostate in 11/2013. bone scan 12/06/13 was negative for metastasis. Ongoing treatment with Lupron injections. S/P radiation therapy completed on 06/08/2014." Family History Other No pertinent family history Social History Preferred Language: [place] Communication Ability: Effective Theatrical Variety Agent Required: No Beliefs That Will Affect Care: None Current Living Situation: Spouse and Family Other Information That Helps Us Care for You: No Feels Safe at Home: Yes Safety Concerns: Feels Safe At This Time Smoking Status: Unknown if ever smoked Hx Alcohol Use: No Hx Substance Use: No Review of Systems Review of Systems: All systems reviewed & are unremarkable except as noted in HPI & below Nothing additional to add. Physical Exam Physical Exam: General: The patient is demented but alert. Head: normocephalic, no masses, lesions, tenderness or abnormalities Eyes: conjunctiva are pink and non-injected, sclera clear Neck: supple, no adenopathy, no bruits, normal jugular venous pulse, no hepatojugular reflux Chest: normal shape and normal respiratory effort Lungs: clear to auscultation and percussion Cardiac Exam: - regular rate & rhythm, no murmurs gallops or rubs - normal S1, normal S2 Pulses: 2(+) throughout Abdomen: abdomen soft, non-tender, no abnormal masses and no hepatosplenomegaly Musculoskeletal: no gait disturbance, no joint inflammation, no deforming a rthritis Extremities: no edema and no cyanosis Neuro: grossly normal exam Results & Data ([facility]) Vital Signs (Past 12 Hours) Vital Signs Temp Pulse Pulse Resp BP BP Pulse Ox 08/28/19 06:00 46 L 16 98 08/28/19 05:00 49 L 14 96 08/28/19 04:00 50 L 17 98 08/28/19 03:24 51 L 17 133/67 98 08/28/19 03:13 36.4 C L 60 17 139/63 96 08/28/19 02:44 76 16 136/73 96 08/28/19 02:00 50 L 16 132/62 95 08/28/19 01:16 55 L 16 147/72 H 95 08/28/19 01:00 52 L 19 147/72 H 97 08/28/19 00:30 53 L 6 L 139/67 96 08/28/19 00:26 56 L 13 143/69 H 95 08/28/19 00:00 51 L 18 125/58 L 96 08/27/19 23:30 59 L 20 127/69 95 08/27/19 23:00 61 14 135/66 95 08/27/19 22:31 74 18 96 08/27/19 22:30 68 22 94 08/27/19 22:25 74 18 95 08/27/19 22:24 66 21 154/63 H 96 08/27/19 22:00 64 14 08/27/19 21:34 18 96 08/27/19 21:00 57 L 19 96 08/27/19 20:49 60 19 96 Laboratory Results Laboratory Results - last 24 hr 08/27/19 08/27/19 08/27/19 19:25 19:25 19:25 WBC 6.34 RBC 3.48 L Hgb 12.0 L Hct 36.6 L MCV 105.2 H MCH 34.5 H MCHC 32.8 RDW Std Deviation 51.6 H RDW Coeff of Franco 13.4 Plt Count 132 MPV 10.0 Immature Gran % (Auto) 0.3 Neut % (Auto) 79.1 Lymph % (Auto) 11.8 [place] % (Auto) 8.0 Eos % (Auto) 0.6 Baso % (Auto) 0.2 Immature Gran # (Auto) 0.02 Neut # (Auto) 5.01 Lymph # (Auto) 0.75 L [place] # (Auto) 0.51 Eos # (Auto) 0.04 Baso # (Auto) 0.01 PT 10.9 INR 1.0 APTT PTT Ratio Sodium 139 Potassium 3.7 Chloride 106 Carbon Dioxide 28 Anion Gap 5.0 BUN 16 Creatinine 1.05 Est Cr Clr Drug Dosing 45.6 Est GFR ( Amer) 74.1 Est GFR (Non-Af Amer) 64.0 BUN/Creatinine Ratio 15.0 Glucose 201 H POC Glucose Calcium 8.6 Magnesium 2.3 Total Bilirubin 0.7 AST 26 ALT 24 Alkaline Phosphatase 96 Troponin I 0.017 NT-Pro-B Natriuret Pep 174 Total Protein 6.7 Albumin 3.5 Globulin 3.2 Albumin/Globulin Ratio 1.1 Lipase 102 TSH 1.580 Urine Color Urine Appearance Urine pH Ur Specific [place] Urine Protein Urine Glucose (UA) Urine Ketones Urine Blood Urine Nitrite Urine Bilirubin Urine Urobilinogen Ur Leukocyte Esterase Urine WBC (Auto) Urine RBC (Auto) U Hyaline Cast (Auto) U Epithel Cells (Auto) Urine Bacteria (Auto) Nasal Screen MRSA (PCR) 08/27/19 08/27/19 08/28/19 22:22 22:46 03:00 WBC RBC Hgb Hct MCV MCH MCHC RDW Std Deviation RDW Coeff of [place] Plt Count MPV Immature Gran % (Auto) Neut % (Auto) Lymph % (Auto) [place] % (Auto) Eos % (Auto) Baso % (Auto) Immature Gran # (Auto) Neut # (Auto) Lymph # (Auto) [place] # (Auto) Eos # (Auto) Baso # (Auto) PT INR APTT PTT Ratio Sodium Potassium Chloride Carbon Dioxide Anion Gap BUN Creatinine Est Cr Clr Drug Dosing Est GFR ( Amer) Est GFR (Non-Af Amer) BUN/Creatinine Ratio Glucose POC Glucose Calcium Magnesium Total Bilirubin AST ALT Alkaline Phosphatase Troponin I 0.069 H* NT-Pro-B Natriuret Pep Total Protein Albumin Globulin Albumin/Globulin Ratio Lipase TSH Urine Color Yellow Urine Appearance Cloudy A Urine pH 5.0 Ur Specific [place] 1.026 Urine Protein Negative Urine Glucose (UA) Negative Urine Ketones Negative Urine Blood Negative Urine Nitrite Negative Urine Bilirubin Negative Urine Urobilinogen Negative Ur Leukocyte Esterase Negative Urine WBC (Auto) 1-5 Urine RBC (Auto) 0-4 U Hyaline Cast (Auto) 1-5 U Epithel Cells (Auto) 10-20 H Urine Bacteria (Auto) Negative Nasal Screen MRSA (PCR) Negative 08/28/19 08/28/19 08/28/19 04:04 06:17 07:12 WBC RBC Hgb Hct MCV MCH MCHC RDW Std Deviation RDW Coeff of Franco Plt Count MPV Immature Gran % (Auto) Neut % (Auto) Lymph % (Auto) [place] % (Auto) Eos % (Auto) Baso % (Auto) Immature Gran # (Auto) Neut # (Auto) Lymph # (Auto) [place] # (Auto) Eos # (Auto) Baso # (Auto) PT INR APTT 34.7 H PTT Ratio 1.2 Sodium Potassium Chloride Carbon Dioxide Anion Gap BUN Creatinine Est Cr Clr Drug Dosing Est GFR ( Amer) Est GFR (Non-Af Amer) BUN/Creatinine Ratio Glucose POC Glucose 95 Calcium Magnesium Total Bilirubin AST ALT Alkaline Phosphatase Troponin I 0.029 NT-Pro-B Natriuret Pep Total Protein Albumin Globulin Albumin/Globulin Ratio Lipase TSH Urine Color Urine Appearance Urine pH Ur Specific [place] Urine Protein Urine Glucose (UA) Urine Ketones Urine Blood Urine Nitrite Urine Bilirubin Urine Urobilinogen Ur Leukocyte Esterase Urine WBC (Auto) Urine RBC (Auto) U Hyaline Cast (Auto) U Epithel Cells (Auto) Urine Bacteria (Auto) Nasal Screen MRSA (PCR) Medications Administered Current Inpatient Medications Acetaminophen (Tylenol) 650 mg PO Q4H PRN PRN Reason: Pain or Fever Stop: 09/27/19 03:00 Aspirin (Ecotrin Ectab) [facility] [place] Stop: 09/27/19 08:59 Last Admin: 08/28/19 09:03 Dose: 81 mg Documented by: Atorvastatin Calcium (Lipitor) 80 mg PO QAM [facility] Stop: 09/27/19 08:59 Last Admin: 08/28/19 09:03 Dose: 80 mg Documented by: Dextrose (Dextrose 50%) 25 - 50 ml IV UD PRN; Protocol PRN Reason: Hypoglycemia Protocol Stop: 09/27/19 03:14 Ferrous Sulfate (Feosol) 650 mg PO QAM [facility] Stop: 09/27/19 08:59 Last Admin: 08/28/19 09:03 Dose: 650 mg Documented by: Ferrous Sulfate (Feosol) 325 mg PO QPM [facility] Stop: 09/27/19 20:59 Glucagon (Glucagen) 1 mg SQ UD PRN; Protocol PRN Reason: Hypoglycemia Protocol Stop: 09/27/19 03:14 Glucose (Glucose 40%) 15 - 30 gm PO UD PRN; Protocol PRN Reason: Hypoglycemia Protocol Stop: 09/27/19 03:14 Glucose (Dex4 Glucose) 4 - 8 tabs PO UD PRN; Protocol PRN Reason: Hypoglycemia Protocol Stop: 09/27/19 03:14 Sodium Chloride (Nss 1000ml) 1,000 mls @ 75 mls/hr IV .[id number] [facility] Stop: 09/27/19 03:00 Last Admin: 08/28/19 03:21 Dose: 75 mls/hr Documented by: Insulin Aspart (Novolog Flexpen) 0 units SC ACHS [facility] Stop: 09/27/19 07:29 Last Admin: 08/28/19 09:01 Dose: Not Given Documented by: Miscellaneous (Carbohydrates For Hypoglycemia) 15 - 30 gm PO UD PRN PRN Reason: Hypoglycemia Treatment Stop: 09/27/19 03:14 Multivitamins (Multivitamin Tab) 1 tab PO QAM [facility] Stop: 09/27/19 08:59 Last Admin: 08/28/19 09:03 Dose: 1 tab Documented by: Nitroglycerin (Nitrostat) 0.4 mg SL UD PRN PRN Reason: Chest Pain Stop: 09/27/19 03:00 Ondansetron HCl (Zofran) 4 mg IV Q6H PRN PRN Reason: Nausea Stop: 09/27/19 03:00 Vitamin D (Vitamin D3) 5,000 units PO QAM [facility] Stop: 09/27/19 08:59 Last Admin: 08/28/19 09:03 Dose: 5,000 units Documented by: (1) Fall Encounter type: initial encounter Qualified Code(s): W19.XXXA - Unspecified fall, initial encounter
[2019-08-28] MEDS ORDERED: MULTIVITAMIN TAB PO SCH (09:00)
[2019-08-28] MEDS ORDERED: ATORVASTATIN 40 MG TAB PO SCH (09:00)
[2019-08-28] MEDS ORDERED: ASPIRIN 81 MG ECTAB PO SCH (09:00)
[2019-08-28] MEDS ORDERED: FERROUS SULFATE 325 MG TAB PO SCH ×3 (09:00→21:00)
[2019-08-28] MEDS ORDERED: CHOLECALCIFEROL 1,000 UNITS 25 MCG TAB PO SCH (09:00)
[2019-08-28] MEDS: INSULIN ASPART 100 UNITS/ML 3 ML PEN SC SCH ×2 (09:01→13:04)
--- NOTE | 2019-08-28 11:15 | Electrocardiogram Report ---
Test Reason : Blood Pressure : / mmHG Vent. Rate : 064 BPM Atrial Rate : 064 BPM P-R Int : 134 ms QRS Dur : 098 ms QT Int : 414 ms P-R-T Axes : 060 -27 042 degrees QTc Int : 427 ms Normal sinus rhythm Poor R wave progression, consider anterior WI vs. lead placement vs. LVH When compared with ECG of 31-DEC-2018 21:12, No significant change was found Confirmed by Robert Hogue ([id number]) on 08/28/2019 11:14:53 AM Referred By: REFERRED SELF Confirmed By:Anthony Hogue
--- NOTE | 2019-08-28 13:30 | Hospitalist Progress Note ---
Date of Service August 28, 2019 Assessment & Plan (1) Atypical chest pain: EKG showed NSR, no change from prior Troponin 0.017--> 0.069--> 0.029 -->0.018 No active chest pain Echo is unremarkable Shells Inspector recommendations noted (2) Fall: Fall is likely mechanical considering patient's ambulatory dysfunction Get PT/OT evaluation Fall precautions (3) History of coronary artery disease, history of myocardial infarction, Continue aspirin and statin (4) Diabetes Not on medication. Get hba1c. Monitor blood glucose (5) History of hypertension Not on any medication Monitor (6) Hyperlipidemia Continue statin (7) History of prostate cancer, history of radiation treatment. (8) History of anemia on iron supplements DVT ppx - lovenox Admission and Anticipated Discharge Date Admission Date: August 28, 2019 Subjective Patient seen and examined. Patient is a very poor historian due to his dementia Does not have any complaints Review of Systems Review of Systems: Unobtainable due to cognitive status Physical Exam Constitutional: + well hydrated; no acute distress Elderly man ENMT: external ear and nose normal, oropharynx normal Respiratory: normal respiratory effort, lungs clear to auscultation Cardiovascular: RRR, no murmur, no edema Heart Sounds: normal S1 and normal S2 Gastrointestinal (Abdomen): normal bowel sounds, soft, nontender, no hepatosplenomegaly Musculoskeletal: Moves all extremities Neurologic: PERRL, EOMI, accommodation nl, no face palsy, no dysarthria moves all extremities Awake and alert Psychiatric: Insight: not poor insight Results & Data Results & Data ([facility]) Vital Signs (Past 12 Hours) Vital Signs Temp Pulse Pulse Resp BP BP Pulse Ox 08/28/19 11:31 55 L 17 08/28/19 11:29 36.6 C 53 L 21 158/64 H 97 08/28/19 11:15 53 L 24 08/28/19 11:00 49 L 18 08/28/19 10:45 50 L 18 08/28/19 10:30 48 L 16 08/28/19 10:15 48 L 17 08/28/19 10:00 48 L 18 08/28/19 09:45 50 L 18 08/28/19 09:30 52 L 18 08/28/19 09:15 64 19 08/28/19 09:07 63 24 149/61 H 08/28/19 09:00 47 L 16 99 08/28/19 08:45 48 L 14 98 08/28/19 08:30 48 L 15 98 08/28/19 08:15 51 L 19 99 08/28/19 08:00 52 L 19 100 08/28/19 07:45 47 L 12 100 08/28/19 07:30 50 L 16 98 08/28/19 07:15 46 L 16 98 08/28/19 07:00 47 L 15 98 08/28/19 06:45 53 L 16 99 08/28/19 06:00 46 L 16 98 08/28/19 05:00 49 L 14 96 08/28/19 04:00 50 L 17 98 08/28/19 03:24 51 L 17 133/67 98 08/28/19 03:13 36.4 C L 60 17 139/63 96 08/28/19 02:44 76 16 136/73 96 08/28/19 02:00 50 L 16 132/62 95 Laboratory Results Short CBC 08/27/19 Range/Units 19:25 WBC 6.34 (4.8-10.8) K/uL Hgb 12.0 L (14.0-18.0) g/dL Hct 36.6 L (42-52) % Plt Count 132 (130-400) K/uL BMP 08/27/19 19:25 Sodium 139 Potassium 3.7 Chloride 106 Carbon Dioxide 28 BUN 16 Creatinine 1.05 Glucose 201 H Calcium 8.6 Cardiac Enzymes 08/27/19 08/27/19 08/28/19 Range/Units 19:25 22:46 04:04 Troponin I 0.017 0.069 H* 0.029 (0-0.045) ng/ml 08/28/19 Range/Units 10:40 Troponin I 0.018 (0-0.045) ng/ml Liver Function 08/27/19 Range/Units 19:25 Total Bilirubin 0.7 (0.2-1) mg/dl AST 26 (15-37) U/L ALT 24 (12-78) U/L Alkaline Phosphatase 96 (45-117) U/L Albumin 3.5 (3.4-5.0) gm/dl Urine 08/27/19 Range/Units 22:22 Urine Color Yellow Urine Appearance Cloudy A (Clear) Urine pH 5.0 (4.5-7.5) Ur Specific [place] 1.026 (1.000-1.030) Urine Protein Negative (Negative) Urine Glucose (UA) Negative (Negative) (1) Fall Encounter type: initial encounter Qualified Code(s): W19.XXXA - Unspecified fall, initial encounter
[2019-08-28] MEDS ORDERED: HALOPERIDOL LACTATE 5 MG/ML 1 ML VIAL IV PRN (18:55)
[2019-08-28] MEDS ORDERED: HALOPERIDOL LACTATE 5 MG/ML 1 ML VIAL IM PRN (19:06)
[2019-08-28] MEDS ORDERED: FERROUS SULFATE 325 MG/7.4 ML UDP PO SCH (21:00)
[2019-08-28] MEDS ORDERED: METOPROLOL TARTRATE 1 MG/ML VIAL IV STA (23:39)
[2019-08-29] MEDS: HydrALAZINE HCL 20 MG/ML VIAL IV ONE ×2 (00:23→01:45)
[2019-08-29 01:29] LABS: Hematocrit (blood only) 37.4 % (42-52); Hemoglobin 12.7 g/dL (14.0-18.0); Mean Corpuscular Hemoglobin 34.4 pg (25-34); Mean Corpuscular Volume 101.4 fL (80-100); Mean Platelet Volume 9.8 fL (7.4-10.4); Platelet Count 102 K/uL (130-400); RDW Standard Deviation 48.4 fL (36.4-46.3); Red Blood Count 3.69 M/uL (4.7-6.1); White Blood Count 4.49 K/uL (4.8-10.8)
[2019-08-29 01:46] LABS: BUN Creatinine Ratio 14.4 (10-20); Calcium 8.5 mg/dl (8.5-10.1); Creatinine Clr Calc Pharmacy 50.4 ml/min; Est GFR (African American) 83.7; Est GFR (Non-African American) 72.2; Potassium 3.8 mmol/L (3.5-5.1)
[2019-08-29] MEDS ORDERED: ENOXAPARIN INJ 40 MG/0.4 ML SYR SQ SCH (09:00)
[2019-08-29] MEDS ORDERED: FERROUS SULFATE 325 MG TAB PO SCH (09:00)
[2019-08-29] MEDS ORDERED: MULTIVITAMIN TAB PO SCH (09:00)
[2019-08-29] MEDS ORDERED: ATORVASTATIN 40 MG TAB PO SCH (09:00)
[2019-08-29] MEDS ORDERED: ASPIRIN 81 MG ECTAB PO SCH (09:00)
[2019-08-29] MEDS ORDERED: CHOLECALCIFEROL 1,000 UNITS 25 MCG TAB PO SCH (09:00)
--- NOTE | 2019-08-29 09:08 | Hospitalist Progress Note ---
Date of Service August 29, 2019 Assessment & Plan Admission and Anticipated Discharge Date Admission Date: August 28, 2019 Results & Data Results & Data ([facility]) Vital Signs (Past 12 Hours) Vital Signs Temp Pulse Pulse Pulse Resp BP Pulse Ox 08/29/19 07:09 37.0 C 68 17 131/61 96 08/29/19 02:16 37.0 C 60 18 135/57 L 97 08/28/19 23:26 36.7 C 80 20 196/84 H 99 08/28/19 22:55 80
--- NOTE | 2019-08-29 10:11 | Discharge Summary ---
Date of Service August 29, 2019 Admission HPI Per Admitting Provider 88-year-old male with past medical history significant for type 2 diabetes, hyperlipidemia, hypertension, history of coronary artery disease, prostate cancer, right inguinal hernia, anemia, history of fracture of the left hip, ambulatory dysfunction who lives with his , ambulates with help of walker. On 08/27/2019, yesterday in the evening, he was watching the family members fixing a trampoline .He was using walker and he fell down, after falling down he complained of chest pain. EMS was called in and he was given nitro and brought into the hospital. The patient is a poor historian. As per the ER physician, he was only answering yes and no and he was still complaining of chest pain. His initial troponin was negative, but second troponin came back elevated at 0.06. EKG was unremarkable. He has some injuries at his left elbow, x-ray showed some mild soft tissue swelling, otherwise unremarkable. . Later in the ER, the patient was somewhat agitated given Ativan and currently he is sleepy, arousable, opens eyes, but he just stares, not answering any questions. Moves extremities on painful stimuli. I was able to call the daughter and daughter says the patient apparently at baseline has some speech difficulties. Not able to use appropriate words and he gets frustrated. There is no recent fever, chills. No complaint of any pain. No nausea, no vomiting, no diarrhea, no cough. He walks with a walker. Admission Exam Per Admitting Provider VITAL SIGNS: Temperature 37.2, pulse 50, respiratory rate 16, blood pressure 132/62, oxygen 95% on room air. HEENT: Pupils equal, round, and reactive to light. NECK: No neck masses. CARDIOVASCULAR: S1, S2, regular rate and rhythm, no murmur, no gallop. RESPIRATORY SYSTEM: Normal AP diameter. No accessory muscle use. No wheezing, no crackles. ABDOMEN: Soft, bowel sounds present, nontender. No distention. CENTRAL NERVOUS SYSTEM: Drowsy, but arousable. Moves extremities on painful stimuli. EXTREMITIES: No edema, no erythema. Principal Diagnosis Atypical chest pain Fall Discharge Exam Constitutional + well hydrated; no acute distress Eyes PERRL, conjunctivae normal, anicteric sclerae ENMT external ear and nose normal, oropharynx normal Respiratory normal respiratory effort, lungs clear to auscultation Cardiovascular RRR, no murmur, no edema Heart Sounds: normal S1 and normal S2 Gastrointestinal (Abdomen) normal bowel sounds, soft, nontender, no hepatosplenomegaly Neurologic PERRL, EOMI, accommodation nl, no face palsy, no dysarthria moves all extremities Alert and oriented x2 Discharge Data Allergies Allergy/AdvReac Type Severity Reaction Status Date / Time Pea Allergy Severe FRESH/RAW Uncoded 08/27/19 21:50 GREEN PEAS-THROAT SHUTDOWN Consultations 08/28/19 01:11 ED Decision to Admit Stat Ordered Studies 08/27/19 20:17 CT head/brain wo con Stat FINDINGS: Brain parenchyma: There are age-related involutional changes noting mild subcortical and periventricular microangiopathic change. There is no hemorrhage, mass effect, or evidence of acute territorial ischemia by CT criteria. Matthews- white matter differentiation is preserved. No extra-axial fluid collection is seen. Ventricles, sulci, cisterns: Prominent secondary to involutional change. Intracranial vasculature: There is atherosclerotic calcification of the cavernous carotid and vertebral arteries. Calvarium: The skeletal structures are osteopenic. No depressed calvarial fracture is identified. Sinuses and mastoids: The visualized paranasal sinuses are clear. The mastoid air cells are well pneumatized. Orbits: The bony orbits are grossly intact. IMPRESSION: There is no hemorrhage, mass effect, or evidence of acute territorial ischemia by CT criteria. Hospital Course (1) Atypical chest pain: EKG showed NSR, no change from prior Troponin 0.017--> 0.069--> 0.029 -->0.018 No active chest pain Echo is unremarkable Today, patient has no complaints. He is awake alert and oriented to person and place. Patient is keen on going home (2) Fall: Fall is likely mechanical considering patient's ambulatory dysfunction Fall precautions (3) History of coronary artery disease, history of myocardial infarction, Continue aspirin and statin (4) History of hypertension Not on any medication Monitor (5) Hyperlipidemia Continue statin (6) History of prostate cancer, history of radiation treatment. (7) History of anemia on iron supplements Total Time Total Time Spent Total Time Spent (In Minutes): 25 Total Time Includes: Examination of the Patient, Discharge Planning and Medication Reconciliation Discharge Plan Discharge Items Patient Disposition: Home - Home Health Services Reason For Visit: FALL, CHEST PAIN Discharge Diagnosis: Fall Atypical chest pain Condition on Discharge: Fair Activity: Resume your previous activity Non-emergency contact: Primary Care Provider Call non-emergency contact if: you have any medication questions Follow-up/Referrals: Get Henderson MD [Primary Care Provider] - 09/01/19 11:00 am (09/01/2019 11:00 AM Aleisha Moore PA-C [facility] ) Diet: Heart Healthy Addtl Attending Provider Instructions: Mr Madrid. You came into the hospital after a fall. You also complained of chest pain. This was evaluated and there was no sign of heart attack. You were evaluated by physical therapy Your chest pain has resolved. Please continue to follow up with your doctors and care provider. It was a pleasure taking care of you. Pending Studies at Discharge: No Stand-Alone Forms: My [facility] Break Media, Smoking Cessation Medications and DC Order Prescriptions: Continued multivitamin Tablet 1 tab PO QAM RF: 0 atorvastatin 80 mg tablet 80 mg PO QAM RF: 0 aspirin 81 mg Tablet,Delayed Release (Dr/Ec) 81 mg PO QAM RF: 0 nitroglycerin [Nitrostat] 0.4 mg Tablet, Sublingual 0.4 mg sublingual UD RF: 0 cholecalciferol (vitamin D3) [Vitamin D3] 5,000 unit Tablet 5,000 unit PO QAM RF: 0 ferrous sulfate 325 mg (65 mg iron) tablet 650 mg PO QAM RF: 0 ferrous sulfate 325 mg (65 mg iron) tablet 325 mg PO QPM RF: 0 Discharge Orders: Discharge Order (Routine); Ordered 08/29/19 Ordered By: Jinny Spears Admission Data Admit Date/Time: 08/28/19 02:03 Attending Provider: Jinny Spears I. Admit Provider: You Valero Primary Care Provider: Get Henderson Other Providers: You Valero Other Interventions: Discharge Summary Assessment (RN) Last Done: 08/29/19 13:14 DC Date/Time DO NOT enter until pt leaves facility: 08/29/19 16:20
--- NOTE | 2019-08-29 16:56 | Electrocardiogram Report ---
Test Reason : Blood Pressure : / mmHG Vent. Rate : 065 BPM Atrial Rate : 065 BPM P-R Int : 136 ms QRS Dur : 100 ms QT Int : 428 ms P-R-T Axes : 063 -30 025 degrees QTc Int : 445 ms Normal sinus rhythm Left axis deviation Abnormal ECG When compared with ECG of 27-AUG-2019 19:56, No significant change was found Confirmed by Robert Hogue [id number]) on 08/29/2019 4:56:09 PM Referred By: REFERRED SELF Confirmed By:Anthony Hogue
== END 2019-08-29 16:20 | disposition home health service (06) | DRG 313 ==
LOC: ED 19:50 → 1E 08-28 02:03 → 2N 08-28 15:27